=== PATIENT | male | born 1960 | race Caucasian/White ===

== ENCOUNTER 2021-10-17 08:37 | Emergency (ER) | payer MEDICAID ==
[~2021-10-17] VITALS: Ht 177.8 cm; Wt 88.6 kg
[~2021-10-17 08:37] MED LIST: AMOX-441 PO; VALS1TAB2 PO
[2021-10-17] MEDS ORDERED: CefTRIAXone 1000mg IM Kit (w/lidocaine diluent) IM ONE (09:10)
[2021-10-17] MEDS ORDERED: TETanus/Pertussis (Acell)/Diphther VAC/PF (Tdap-Adult) 0.5ml syringe IMVAC ONE (09:10)
[2021-10-17] MEDS ORDERED: CEPH-585 PO (10:08)
[2021-10-17] MEDS ORDERED: SULF1TAB49 PO ×2 (10:08)
[2021-10-17] MEDS ORDERED: HYDR-3965 PO ×2 (10:08)
[2021-10-17 10:37] VITALS: BP 140/89
== END 2021-10-17 10:31 | disposition home or self-care (01) ==
LOC: ER 08:38
DX: S61.431A Puncture wound without foreign body of right hand, initial encounter (principal); L03.011 Cellulitis of right finger; X58.XXXA Exposure to other specified factors, initial encounter; Y93.89 Activity, other specified; Y92.89 Other specified places as the place of occurrence of the external cause; Y99.8 Other external cause status
CPT/HCPCS: 90471; 90715; 96372; 99284; J0696

== ENCOUNTER 2021-10-21 15:06 | Inpatient (IN) | payer MEDICAID ==
[~2021-10-21] VITALS: Ht 177.8 cm; Wt 89.5 kg
[~2021-10-21 15:06] MED LIST changes: +CEPH-585 PO; +HYDR-3965 PO; +SULF1TAB49 PO
[2021-10-21 17:01] LABS: BASOPHILS % (AUTO) 0.6 % (0-1); EOSINOPHILS # (AUTO) 0.7 X10'3 (0-0.9); EOSINOPHILS % (AUTO) 8.4 % (0-6); HEMATOCRIT 45.1 % (42.0-52.0); HEMOGLOBIN 15.9 g/dl (14.0-17.9); LYMPHOCYTES # (AUTO) 1.6 X10'3 (1.1-4.8); LYMPHOCYTES % (AUTO) 20.4 % (21-51); MEAN CORPUSCULAR HGB CONC 35.2 g/dL (33.0-36.5); MEAN CORPUSCULAR VOLUME 96.8 FL (78-98); MEAN PLATELET VOLUME 6.6 FL (7.4-10.4); MONOCYTES # (AUTO) 0.5 X10'3 (0-0.9); MONOCYTES % (AUTO) 6.5 % (2-12); NEUTROPHILS % (AUTO) 64.1 % (42-75); PLATELET COUNT 236 X10'3 (140-440); RED BLOOD COUNT 4.66 X10'6 (4.70-6.10); WHITE BLOOD COUNT 7.8 X10'3 (4.5-11.0)
[2021-10-21] MEDS ORDERED: CefTRIAXone 2gm/NS 100ml IVPB 100 ML IV ONE (19:10)
[2021-10-21] MEDS ORDERED: HYDROmorphone inj. 0.5 MG/0.5 ML DISP.SYRIN IV PRN (20:55)
[2021-10-21] MEDS ORDERED: diphenhydrAMINE 50 mg/ml inj IV PRN (20:55)
[2021-10-21] MEDS ORDERED: ondansetron/PF 4mg/2ml inj IV PRN (20:55)
[2021-10-21] MEDS ORDERED: acetaminophen 325mg tablet PO PRN ×2 (20:55)
[2021-10-21] MEDS ORDERED: morphine 2 MG/ML inj. syringe IV PRN ×2 (20:55)
[2021-10-21] MEDS ORDERED: acetaminophen 650mg rectal suppository RC PRN (20:55)
[2021-10-21] MEDS ORDERED: magnesium hydroxide 30ml (MOM) UD suspension PO PRN (20:55)
[2021-10-21] MEDS ORDERED: bisacodyl 10mg suppository rectal RC PRN (20:55)
[2021-10-21] MEDS ORDERED: mag hydrox/Alum hydrox/simeth 30ml oral suspension PO PRN (20:55)
[2021-10-21] MEDS ORDERED: ondansetron 4mg rapidly disintigrating tab PO PRN (20:55)
[2021-10-21] MEDS ORDERED: HYDROcodone/acetaminophen 5mg/325mg tablet PO PRN (20:55)
[2021-10-21] MEDS ORDERED: diphenhydrAMINE 25mg capsule PO PRN (20:55)
[2021-10-21] MEDS: dextrose 5%-1/2 normal saline 1,000 ML IV SCH (20:55)
[2021-10-21] MEDS ORDERED: temazepam 15mg capsule PO PRN (21:00)
[2021-10-21] MEDS ORDERED: TETanus/Pertussis (Acell)/Diphther VAC/PF (Tdap-Adult) 0.5ml syringe IMVAC ONE (21:00)
[2021-10-21 21:32] LABS: APTT 29 SECONDS (22-32)
[2021-10-21 21:43] LABS: MAGNESIUM 2.1 MG/DL (1.5-2.4); PHOSPHORUS 3.1 MG/DL (2.3-4.5)
[2021-10-21 22:05] LABS: HEMOGLOBIN A1C 5.3 % (4.5-6.2)
[2021-10-22] VITALS (20 sets, daily range): BP systolic 110–157; BP diastolic 62–94
[2021-10-22] MEDS ORDERED: haloperidol lactate 5mg/ml inj IM PRN (04:50)
[2021-10-22] MEDS ORDERED: haloperidol 5mg tablet PO PRN (04:50)
--- NOTE | 2021-10-22 06:25 | NUR ---
Patient in room ORTHO 4009. I have received report from Demetrice SHARMA and had the opportunity to ask questions and assume patient care.
[2021-10-22] MEDS: dextrose 5%-1/2 normal saline 1,000 ML IV SCH ×3 (06:55→20:58)
[2021-10-22 07:01] LABS: BASOPHILS # (AUTO) 0.1 X10'3 (0-0.2); BASOPHILS % (AUTO) 1.1 % (0-1); EOSINOPHILS # (AUTO) 0.7 X10'3 (0-0.9); EOSINOPHILS % (AUTO) 10.9 % (0-6); HEMATOCRIT 41.7 % (42.0-52.0); HEMOGLOBIN 14.5 g/dl (14.0-17.9); LYMPHOCYTES # (AUTO) 1.1 X10'3 (1.1-4.8); LYMPHOCYTES % (AUTO) 17.9 % (21-51); MEAN CORPUSCULAR HEMOGLOBIN 33.9 PG (27.0-31.0); MEAN CORPUSCULAR HGB CONC 34.7 g/dL (33.0-36.5); MEAN CORPUSCULAR VOLUME 97.8 FL (78-98); MEAN PLATELET VOLUME 6.9 FL (7.4-10.4); MONOCYTES # (AUTO) 0.6 X10'3 (0-0.9); MONOCYTES % (AUTO) 8.7 % (2-12); NEUTROPHILS # (AUTO) 3.9 X10'3 (1.8-7.7); NEUTROPHILS % (AUTO) 61.4 % (42-75); PLATELET COUNT 216 X10'3 (140-440); RED BLOOD COUNT 4.27 X10'6 (4.70-6.10); WHITE BLOOD COUNT 6.4 X10'3 (4.5-11.0)
[2021-10-22 07:17] LABS: ALANINE AMINOTRANSFERASE 58 U/L (12-78); ALBUMIN 3.6 G/DL (3.4-5.0); ALBUMIN/GLOBULIN RATIO 1.2 (1.1-1.5); ALKALINE PHOSPHATASE 94 IU/L (46-116); ANION GAP 8 (8-16); ASPARTATE AMINO TRANSFERASE 53 U/L (10-37); BILIRUBIN,TOTAL 0.7 MG/DL (0.1-1.0); BLOOD UREA NITROGEN 10 MG/DL (7-18); BUN/CREATININE RATIO 11.1 (5.4-32.0); CALCIUM 8.3 MG/DL (8.5-10.1); CHLORIDE 101 MMOL/L (99-107); CHOL/HDL RATIO 2.4 (0.00-4.99); CHOLESTEROL 143 MG/DL (0-200); GLUCOSE 114 MG/DL (70-104); HDL CHOLESTEROL 60 MG/DL (35-60); LDL CHOLESTEROL 74 MG/DL (50-100); POTASSIUM 3.8 MMOL/L (3.5-5.1); SODIUM 135 MMOL/L (135-145); TOTAL CARBON DIOXIDE 25.8 MMOL/L (24-32); TOTAL PROTEIN 6.6 G/DL (6.4-8.2); TRIGLYCERIDES 54 MG/DL (20-135); eGFR 86 ML/MIN
[2021-10-22] MEDS ORDERED: HYDR-3964 PO (07:17)
[2021-10-22] MEDS ORDERED: SULF1TAB45 PO (07:17)
[2021-10-22] MEDS ORDERED: ROSU5TAB12 PO (07:17)
[2021-10-22] MEDS ORDERED: LOSA100T57 PO (07:17)
[2021-10-22] MEDS ORDERED: CEPH250T PO (07:19)
[2021-10-22] MEDS: pantoprazole 40MG/NS 100ML BAG 100 ML IV SCH (07:22)
[2021-10-22] MEDS: nicotine 21mg patch - 24 hr TD SCH (07:22)
[2021-10-22] MEDS: docusate sod 100mg capsule PO SCH ×2 (08:00→20:00)
[2021-10-22] MEDS: CefTRIAXone 2gm/NS 100ml IVPB 100 ML IV SCH (08:09)
[2021-10-22] MEDS: LORazepam 2 mg/ml vial IV PRN ×2 (09:41→19:25)
[2021-10-22] MEDS ORDERED: AMLO-708 PO (15:21)
[2021-10-22] MEDS ORDERED: morphine 4 MG/ML inj SYRINge IV PRN (15:40)
[2021-10-22] MEDS ORDERED: morphine 2 MG/ML inj. syringe IV PRN (15:40)
[2021-10-22] MEDS ORDERED: meperidine/PF 25mg/ml syringe IV PRN ×3 (15:40)
[2021-10-22] MEDS ORDERED: ringers solution, lacted 1,000 ML IV SCH (15:40)
[2021-10-22] MEDS ORDERED: proCHLORperazine 10 MG/2 ml inj IV PRN (15:40)
[2021-10-22] MEDS ORDERED: ondansetron/PF 4mg/2ml inj IV PRN (15:40)
[2021-10-22] MEDS ORDERED: sevoflurane 250ml liquid IH ONE (15:41)
[2021-10-22] MEDS ORDERED: FENTANYL CITRATE/PF 50 MCG/1 ML VIAL ONE (15:46)
[2021-10-22] MEDS ORDERED: midazolam 1 mg/ML 2ml injection ONE (15:46)
[2021-10-22] MEDS ORDERED: vancomycin 1,000mg inj ONE (16:03)
[2021-10-22] MEDS ORDERED: BUPIVAcaine 0.5% inj/PF 30 ML ONE (16:03)
[2021-10-22] MEDS ORDERED: propofol inj 20 ML IV ONE (16:14)
--- NOTE | 2021-10-22 16:42 | NUR ---
DR PERALTA REMAINS AT BEDSIDE, PT AWOKE AND LMA WAS REMOVED BY ANESTHESIA. VITAL STABLE, RESPIRATORY STATUS GOOD. 10 LTR FACE MASK PLACED ON PATIENT Addendum: 10/22/21 at 1758 by Elissa Sorensen RN Amended: Links added.
--- NOTE | 2021-10-22 17:27 | NUR ---
Patient in room ORTHO 4009. I have received report from Betina SHARMA and had the opportunity to ask questions and assume patient care.
[2021-10-22] MEDS: vancomycin/NS 1 GM ADD-VANTAGE 250 ML IV SCH (18:01)
--- NOTE | 2021-10-22 18:17 | NUR ---
Problems reprioritized. Patient report given, questions answered & plan of care reviewed with Kendra Gardner RN.
--- NOTE | 2021-10-22 18:30 | NUR ---
Patient in room ORTHO 4007. I have received report from IVANNA SHARMA and had the opportunity to ask questions and assume patient care.
[2021-10-22] MEDS ORDERED: losartan 50mg tablet PO ONE (20:00)
--- NOTE | 2021-10-22 23:30 | NUR ---
Patient report given, questions answered & plan of care reviewed with GRADY SHARMA.
--- NOTE | 2021-10-22 23:32 | NUR ---
Patient in room ORTHO 4007. I have received report from SCAR ABBOTT RN and had the opportunity to ask questions and assume patient care.
[2021-10-22] MEDS: HYDROcodone/acetaminophen 10/325mg tab PO PRN (23:58)
[2021-10-23 01:47] VITALS: BP 151/74
[2021-10-23] MEDS: dextrose 5%-1/2 normal saline 1,000 ML IV SCH (02:55)
[2021-10-23] MEDS: vancomycin/NS 1 GM ADD-VANTAGE 250 ML IV SCH (04:37)
[2021-10-23 06:00] VITALS: BP 127/72
--- NOTE | 2021-10-23 06:20 | NUR ---
Patient in room ORTHO 4007. I have received report from Blessing SHARMA and had the opportunity to ask questions and assume patient care. Addendum: 10/23/21 at 0622 by Maryan Aguilar RN Received report from Alice SHARMA
[2021-10-23 06:37] LABS: BASOPHILS # (AUTO) 0.1 X10'3 (0-0.2); BASOPHILS % (AUTO) 1.1 % (0-1); EOSINOPHILS # (AUTO) 0.6 X10'3 (0-0.9); EOSINOPHILS % (AUTO) 8.4 % (0-6); HEMATOCRIT 40.7 % (42.0-52.0); HEMOGLOBIN 14.1 g/dl (14.0-17.9); LYMPHOCYTES # (AUTO) 1.1 X10'3 (1.1-4.8); LYMPHOCYTES % (AUTO) 16.2 % (21-51); MEAN CORPUSCULAR HEMOGLOBIN 33.7 PG (27.0-31.0); MEAN CORPUSCULAR HGB CONC 34.7 g/dL (33.0-36.5); MEAN CORPUSCULAR VOLUME 97.1 FL (78-98); MEAN PLATELET VOLUME 6.9 FL (7.4-10.4); MONOCYTES # (AUTO) 0.5 X10'3 (0-0.9); MONOCYTES % (AUTO) 7.5 % (2-12); NEUTROPHILS # (AUTO) 4.4 X10'3 (1.8-7.7); NEUTROPHILS % (AUTO) 66.8 % (42-75); PLATELET COUNT 188 X10'3 (140-440); RED BLOOD COUNT 4.19 X10'6 (4.70-6.10); WHITE BLOOD COUNT 6.7 X10'3 (4.5-11.0)
[2021-10-23 07:08] LABS: ALANINE AMINOTRANSFERASE 93 U/L (12-78); ALBUMIN 3.5 G/DL (3.4-5.0); ALBUMIN/GLOBULIN RATIO 1.1 (1.1-1.5); ALKALINE PHOSPHATASE 89 IU/L (46-116); AMYLASE 74 U/L (25-115); ANION GAP 7 (8-16); BILIRUBIN,TOTAL 0.7 MG/DL (0.1-1.0); BLOOD UREA NITROGEN 9 MG/DL (7-18); CALCIUM 7.9 MG/DL (8.5-10.1); CHLORIDE 101 MMOL/L (99-107); CREATININE 0.69 MG/DL (0.60-1.10); GLUCOSE 119 MG/DL (70-104); LIPASE 210 U/L (73-393); MAGNESIUM 2.1 MG/DL (1.5-2.4); SODIUM 131 MMOL/L (135-145); TOTAL CARBON DIOXIDE 23.2 MMOL/L (24-32); TOTAL PROTEIN 6.6 G/DL (6.4-8.2); eGFR > 90 ML/MIN
[2021-10-23 07:15] LABS: ASPARTATE AMINO TRANSFERASE 121 U/L (10-37); PHOSPHORUS 2.4 MG/DL (2.3-4.5); POTASSIUM 4.1 MMOL/L (3.5-5.1)
[2021-10-23] MEDS: docusate sod 100mg capsule PO SCH (07:32)
[2021-10-23] MEDS: HYDROcodone/acetaminophen 10/325mg tab PO PRN (07:33)
[2021-10-23] MEDS: pantoprazole 40MG/NS 100ML BAG 100 ML IV SCH (07:34)
[2021-10-23] MEDS: nicotine 21mg patch - 24 hr TD SCH (07:39)
[2021-10-23] MEDS ORDERED: losartan 50mg tablet PO SCH (08:00)
[2021-10-23] MEDS ORDERED: atorvastatin 20mg tablet PO SCH (08:00)
[2021-10-23] MEDS: CefTRIAXone 2gm/NS 100ml IVPB 100 ML IV SCH (08:40)
[2021-10-23 10:18] VITALS: BP 143/86
[2021-10-23] MEDS ORDERED: HYDR-3964 PO (10:34)
[2021-10-23] MEDS ORDERED: VANCOmycin 1250MG/NS 250ml Bag 250 ML IV SCH (12:00)
[2021-10-24] MEDS ORDERED: LORazepam 1 MG tablet PO PRN (04:50)
[2021-10-24] MEDS ORDERED: LORazepam 2 mg/ml vial IV PRN (04:50)
[2021-10-24] MEDS ORDERED: pantoprazole 40mg Tablet.DR PO SCH (07:30)
[2021-10-24] MEDS ORDERED: VANCOMYCIN LEVEL IV ONE (11:30)
[2021-10-26] MEDS ORDERED: LORazepam 2 mg/ml vial IV PRN (04:50)
[2021-10-26] MEDS ORDERED: LORazepam 1 MG tablet PO PRN (04:50)
== END 2021-10-23 11:55 | disposition home or self-care (01) | DRG 316 ==
LOC: ER 15:07 → ED HOLD 20:58 → ORTHO 4S 23:50
PROVIDERS: ADMIT Family Medicine; ATTEND Family Medicine
PROC: 0LB70ZZ Excision of Right Hand Tendon, Open Approach (ICD-10-PCS; principal; 2021-10-22 15:41)
DX: M65.841 Other synovitis and tenosynovitis, right hand (principal); E66.9 Obesity, unspecified; L03.113 Cellulitis of right upper limb; F10.10 Alcohol abuse, uncomplicated; Z20.822 Contact with and (suspected) exposure to COVID-19; E78.5 Hyperlipidemia, unspecified; I10 Essential (primary) hypertension; Z72.0 Tobacco use; Z68.28 Body mass index [BMI] 28.0-28.9, adult; Z79.899 Other long term (current) drug therapy
CPT/HCPCS: 36415; 73130; 80053; 80061; 82150; 82948; 83036; 83605; 83690; 83735; 83880; 84100; 85025; 85610; 85651; 85730; 86140; 87040; 87070; 87075; 87077; 87081; 87186; 87635; 90715; 99285; A4215; A4618; A6222; A6449; A7000; C9113; G0378; J0696; J1170; J2060; J2250; J2704; J3010; J3370; J7042; S0020

== ENCOUNTER 2024-03-04 21:40 | Inpatient (IN) | payer MEDICAID ==
[~2024-03-04] VITALS: Ht 172.7 cm; Wt 71.8 kg
[~2024-03-04 21:40] MED LIST changes: +AMLO-708 PO; -AMOX-441 PO; -CEPH-585 PO; +CEPH250T PO; +HYDR-3964 PO; -HYDR-3965 PO; +LOSA100T58 PO; +ROSU5TAB43 PO; +SULF1TAB45 PO; -SULF1TAB49 PO; -VALS1TAB2 PO
[2024-03-04 22:02] LABS: BASOPHILS # (AUTO) 0.1 X10'3 (0-0.2); BASOPHILS % (AUTO) 1.3 % (0-1); EOSINOPHILS # (AUTO) 0.6 X10'3 (0-0.9); EOSINOPHILS % (AUTO) 10.3 % (0-6); HEMATOCRIT 38.4 % (42.0-52.0); HEMOGLOBIN 13.5 g/dl (14.0-17.9); LYMPHOCYTES # (AUTO) 1.5 X10'3 (1.1-4.8); LYMPHOCYTES % (AUTO) 28.3 % (21-51); MEAN CORPUSCULAR HGB CONC 35.3 g/dL (33.0-36.5); MEAN CORPUSCULAR VOLUME 99.3 FL (78-98); MEAN PLATELET VOLUME 6.6 FL (7.4-10.4); MONOCYTES # (AUTO) 0.3 X10'3 (0-0.9); NEUTROPHILS # (AUTO) 2.9 X10'3 (1.8-7.7); NEUTROPHILS % (AUTO) 54.1 % (42-75); PLATELET COUNT 163 X10'3 (140-440); RED BLOOD COUNT 3.87 X10'6 (4.70-6.10); RED CELL DISTRIBUTION WIDTH 13.5 % (11.5-14.5); WHITE BLOOD COUNT 5.4 X10'3 (4.5-11.0)
[2024-03-04 22:20] LABS: ALANINE AMINOTRANSFERASE 130 U/L (12-78); ALBUMIN/GLOBULIN RATIO 1.2 (1.1-1.5); ALKALINE PHOSPHATASE 114 IU/L (46-116); ANION GAP 10 (8-16); ASPARTATE AMINO TRANSFERASE 103 U/L (10-37); BILIRUBIN,TOTAL 0.8 MG/DL (0.1-1.0); BLOOD UREA NITROGEN 3 MG/DL (7-18); BUN/CREATININE RATIO 3.9 (10.0-20.0); CALCIUM 9.2 MG/DL (8.5-10.1); CHLORIDE 87 MMOL/L (99-107); CREATININE 0.76 MG/DL (0.60-1.10); GLUCOSE 101 MG/DL (70-104); MAGNESIUM 1.5 MG/DL (1.5-2.4); PRO BRAIN NATRIURETIC PEPTIDE 220 PG/ML (0-125); SODIUM 123 MMOL/L (135-145); TOTAL CARBON DIOXIDE 26.4 MMOL/L (24-32); TOTAL PROTEIN 7.4 G/DL (6.4-8.2); eCRCL 103 ML/MIN; eGFR > 90 ML/MIN
[2024-03-04 22:26] LABS: POTASSIUM 2.8 MMOL/L (3.5-5.1)
[2024-03-04] MEDS: potassium Cl 20 mEq SR tablet PO ONE (22:42)
[2024-03-04] MEDS: magnesium oxide 400mg tablet PO ONE (22:43)
[2024-03-04] MEDS: magnesium sulf-water 2g/50mL 50 ML IV ONE (22:54)
[2024-03-04] MEDS: potassium CL 10mEq/100ml bag 100 ML IV ONE (22:57)
[2024-03-04 23:00] LABS: ETHANOL 134 MG/DL (<10)
[2024-03-04 23:03] LABS: URINE AMPHETAMINE SCREEN NEGATIVE (Neg); URINE BARBITUATE SCREEN NEGATIVE (Neg); URINE BENZODIAZEPINES SCREEN NEGATIVE (Neg); URINE CANNABINOID SCREEN NEGATIVE (Neg); URINE COCAINE SCREEN NEGATIVE (Neg); URINE METHADONE SCREEN NEGATIVE (Neg); URINE OPIATE SCREEN NEGATIVE (Neg); URINE PHENCYCLIDINE SCREEN NEGATIVE (Neg)
[2024-03-04] MEDS: aspirin 325mg tablet PO ONE (23:06)
[2024-03-04] MEDS ORDERED: heparin 10,000 units/1 ML INJ IV PRN (23:25)
[2024-03-04] MEDS: nitroGLYCERIN 0.2mg/hour patch TD ONE (23:32)
[2024-03-04 23:35] LABS: APTT 30 SECONDS (22-32)
[2024-03-04] MEDS: heparin 10,000 units/1 ML INJ IV ONE (23:36)
[2024-03-04] MEDS: heparin 25,000 UNIT/250ml bag 250 ML IV PRN (23:41)
[2024-03-04] MEDS ORDERED: HYDR25TA5 PO (23:58)
[2024-03-05] VITALS (12 sets, daily range): BP systolic 102–135; BP diastolic 63–83; PULSE 83–101; RESP 12–21; TEMP 97.4; O2SAT 93–98
[2024-03-05] MEDS: normal saline 1000ML IV soln IVB ONE (00:10)
[2024-03-05] MEDS: normal saline 1000ml 1,000 ML IV ONE (00:33)
[2024-03-05] MEDS ORDERED: ondansetron/PF 4mg/2ml inj IV PRN (00:35)
[2024-03-05] MEDS ORDERED: potassium Cl 20 mEq SR tablet PO PRN ×2 (00:35)
[2024-03-05] MEDS ORDERED: morphine 2 MG/ML inj. syringe IV PRN (00:35)
[2024-03-05] MEDS ORDERED: mag hydrox/Alum hydrox/simeth 30ml oral suspension PO PRN (00:35)
[2024-03-05] MEDS ORDERED: magnesium Cl slow-release 64mg tablet PO PRN (00:35)
[2024-03-05] MEDS ORDERED: acetaminophen 325mg tablet PO PRN ×2 (00:35)
[2024-03-05] MEDS ORDERED: potassium Cl 40MEQ/1/2NS 520ml 520 ML IV PRN (00:35)
[2024-03-05] MEDS ORDERED: HYDROcodone/acetaminophen 5mg/325mg tablet PO PRN (00:35)
[2024-03-05] MEDS ORDERED: magnesium sulf-water 4G/100mL 100 ML IV PRN (00:35)
[2024-03-05] MEDS ORDERED: magnesium sulf-water 2g/50mL 50 ML IV PRN (00:35)
[2024-03-05] MEDS ORDERED: nitroGLYCERIN 0.4mg SUBLingual tab SL PRN ×3 (00:45→11:00)
[2024-03-05] MEDS ORDERED: LORazepam 2 mg/ml vial IV PRN (00:45)
[2024-03-05] MEDS ORDERED: haloperidol 5mg tablet PO PRN (00:45)
[2024-03-05 01:05] LABS: PROTHROMBIN TIME 11.1 SECONDS (9.0-12.0)
[2024-03-05 01:16] LABS: HEMOGLOBIN A1C 5.2 % (4.5-6.2)
[2024-03-05] MEDS: nicotine 21mg patch - 24 hr TD ONE (01:19)
[2024-03-05 01:23] LABS: FREE T4 (FREE THYROXINE) 1.04 NG/DL (0.73-1.40); THYROID STIMULATING HORMONE 1.35 ulU/ml (0.34-4.50)
[2024-03-05] MEDS: MESSAGE TO NURSING IV ONE ×2 (01:28→09:52)
[2024-03-05 07:39] LABS: MAGNESIUM 1.7 MG/DL (1.5-2.4); POTASSIUM 3.2 MMOL/L (3.5-5.1)
[2024-03-05] MEDS ORDERED: midazolam 1 mg/ML 2ml injection ONE (07:54)
[2024-03-05] MEDS ORDERED: iohexol 350MG/ML 100ml bottle IV ONE (07:54)
[2024-03-05] MEDS ORDERED: heparin 1,000unit/ml 10ml vial 10 ML ONE (07:54)
[2024-03-05] MEDS ORDERED: fentaNYL/PF 50MCG/1 ML 2ML syringe ONE (07:54)
[2024-03-05] MEDS ORDERED: iohexol 350 MG/ML 50ML vial IV ONE (07:54)
[2024-03-05] MEDS ORDERED: LIDOcaine 1% (10mg/ml) 2ml vial ONE (07:54)
[2024-03-05] MEDS ORDERED: nitroGLYCERIN 500mcg/5mL D5W 5 ML IV ONE (07:55)
[2024-03-05] MEDS ORDERED: verapamil 2.5 mg/ml inj IV ONE (07:55)
[2024-03-05] MEDS ORDERED: metoprolol tartrate 50mg tablet PO SCH (08:00)
[2024-03-05] MEDS ORDERED: atorvastatin 10mg tablet PO SCH (08:00)
[2024-03-05] MEDS ORDERED: nitroGLYCERIN-Tridil 50MG/D5W 250 ML IV ONE (08:36)
[2024-03-05] MEDS: K and/or MAG REPLACEMENT MC SCH (09:50)
[2024-03-05] MEDS: metoprolol tartrate 25mg tablet PO SCH (09:51)
[2024-03-05] MEDS: ROSUVASTATIN CALCIUM 5 MG TABLET PO SCH (09:51)
[2024-03-05] MEDS: thiamine 100mg/ml 2ml inj. IV SCH (10:12)
[2024-03-05] MEDS: folic acid 1mg/0.2ml inj IV SCH (10:12)
[2024-03-05] MEDS: nicotine 21mg patch - 24 hr TD SCH (10:13)
[2024-03-05] MEDS ORDERED: OXAZEpam 15mg capsule PO PRN (11:00)
[2024-03-05] MEDS ORDERED: cyclobenzaprine 10mg tablet PO PRN (11:00)
[2024-03-05] MEDS ORDERED: HYDROcodone/acetaminophen 10/325mg tab PO PRN ×2 (11:05)
[2024-03-05] MEDS: nitroGLYCERIN-Tridil 50MG/D5W 250 ML IV SCH (11:09)
[2024-03-05] MEDS: aspirin 81mg tab.chew PO SCH (11:14)
[2024-03-05] MEDS: POTASSIUM CHLORIDE 20 MEQ/15 ML oral solution PO SCH (11:15)
[2024-03-06] MEDS ORDERED: normal saline 1000ml 1,000 ML IV SCH (05:30)
[2024-03-07] MEDS ORDERED: LORazepam 2 mg/ml vial IV PRN (00:45)
[2024-03-07] MEDS ORDERED: LORazepam 1 MG tablet PO PRN (00:45)
[2024-03-09] MEDS ORDERED: LORazepam 2 mg/ml vial IV PRN (00:45)
[2024-03-09] MEDS ORDERED: LORazepam 1 MG tablet PO PRN (00:45)
== END 2024-03-05 14:26 | disposition critical access hospital (66) | DRG 190 ==
LOC: ER 21:41 → ED HOLD 03-05 00:39 → PCU 3S 03-05 02:32 → CICU 2S 03-05 09:18
PROVIDERS: ADMIT Internal Medicine Pulmonary Disease; ATTEND Internal Medicine
PROC: 4A023N7 Measurement of Cardiac Sampling and Pressure, Left Heart, Percutaneous Approach (ICD-10-PCS; principal; 2024-03-05)
PROC: B2111ZZ Fluoroscopy of Multiple Coronary Arteries using Low Osmolar Contrast (ICD-10-PCS; 2024-03-05)
PROC: B2151ZZ Fluoroscopy of Left Heart using Low Osmolar Contrast (ICD-10-PCS; 2024-03-05)
DX: I21.4 Non-ST elevation (NSTEMI) myocardial infarction (principal); E87.1 Hypo-osmolality and hyponatremia; I73.9 Peripheral vascular disease, unspecified; I25.110 Atherosclerotic heart disease of native coronary artery with unstable angina pectoris; E83.42 Hypomagnesemia; E87.6 Hypokalemia; F17.210 Nicotine dependence, cigarettes, uncomplicated; D53.9 Nutritional anemia, unspecified; E78.5 Hyperlipidemia, unspecified; I10 Essential (primary) hypertension; G62.9 Polyneuropathy, unspecified; F15.90 Other stimulant use, unspecified, uncomplicated
CPT/HCPCS: 36415; 71045; 80053; 80305; 80320; 82948; 83036; 83735; 83880; 84132; 84439; 84443; 84484; 85025; 85610; 85730; 87081; 93005; 93306; 93458; 96365; 96367; 96375; 99152; 99153; 99285; A6449; C1894; G0378; J1644; J2250; J3010; J3411; J3480; J3490; J7030; J7040; Q9967

== ENCOUNTER 2024-05-12 18:06 | Outpatient (CLI) | payer MEDICAID ==
[~2024-05-12 18:06] MED LIST changes: -CEPH250T PO; -HYDR-3964 PO; +HYDR25TA5 PO; -SULF1TAB45 PO
[2024-05-12 22:02] LABS: BASOPHILS # (AUTO) 0.1 X10'3 (0-0.2); BASOPHILS % (AUTO) 1.2 % (0-1); EOSINOPHILS # (AUTO) 1.3 X10'3 (0-0.9); EOSINOPHILS % (AUTO) 14.3 % (0-6); HEMOGLOBIN 11.9 g/dl (14.0-17.9); LYMPHOCYTES # (AUTO) 2.4 X10'3 (1.1-4.8); LYMPHOCYTES % (AUTO) 26.5 % (21-51); MEAN CORPUSCULAR HEMOGLOBIN 31.4 PG (27.0-31.0); MEAN CORPUSCULAR VOLUME 95.1 FL (78-98); MONOCYTES # (AUTO) 0.6 X10'3 (0-0.9); MONOCYTES % (AUTO) 6.5 % (2-12); NEUTROPHILS # (AUTO) 4.7 X10'3 (1.8-7.7); NEUTROPHILS % (AUTO) 51.5 % (42-75); PLATELET COUNT 247 X10'3 (140-440); RED BLOOD COUNT 3.78 X10'6 (4.70-6.10); RED CELL DISTRIBUTION WIDTH 15.5 % (11.5-14.5); WHITE BLOOD COUNT 9.1 X10'3 (4.5-11.0)
[2024-05-12 22:19] LABS: ALANINE AMINOTRANSFERASE 33 U/L (12-78); ALBUMIN 2.9 G/DL (3.4-5.0); ALBUMIN/GLOBULIN RATIO 0.8 (1.1-1.5); ALKALINE PHOSPHATASE 189 IU/L (46-116); ANION GAP 11 (8-16); ASPARTATE AMINO TRANSFERASE 37 U/L (10-37); BILIRUBIN,TOTAL 0.3 MG/DL (0.1-1.0); BLOOD UREA NITROGEN 5 MG/DL (7-18); BUN/CREATININE RATIO 7.8 (10.0-20.0); C-REACTIVE PROTEIN 0.13 MG/DL (0.0-0.5); CALCIUM 9.1 MG/DL (8.5-10.1); CHLORIDE 99 MMOL/L (99-107); CREATININE 0.64 MG/DL (0.60-1.10); GLUCOSE 71 MG/DL (70-104); POTASSIUM 3.9 MMOL/L (3.5-5.1); SODIUM 133 MMOL/L (135-145); TOTAL CARBON DIOXIDE 23.5 MMOL/L (24-32); TOTAL PROTEIN 6.6 G/DL (6.4-8.2); eGFR > 90 ML/MIN
== END 2024-05-12 23:59 | disposition home or self-care (01) ==
LOC: LAB SPEC 18:06
PROVIDERS: ATTEND Family Medicine
DX: S22.001A Stable burst fracture of unspecified thoracic vertebra, initial encounter for closed fracture (principal); L08.9 Local infection of the skin and subcutaneous tissue, unspecified; X58.XXXA Exposure to other specified factors, initial encounter; Y93.9 Activity, unspecified; Y92.89 Other specified places as the place of occurrence of the external cause; Y99.8 Other external cause status
CPT/HCPCS: 36415; 80053; 85025; 86140

== ENCOUNTER 2024-11-18 12:57 | Emergency (ER) | payer MEDICAID ==
[~2024-11-18] VITALS: Ht 177.8 cm; Wt 79.5 kg
[~2024-11-18 12:57] MED LIST changes: -ROSU5TAB43 PO; +ROSU5TAB51 PO
[2024-11-18 14:14] LABS: BASOPHILS % (AUTO) 0.3 % (0-1); EOSINOPHILS # (AUTO) 0.2 X10'3 (0-0.9); EOSINOPHILS % (AUTO) 1.7 % (0-6); HEMATOCRIT 41.4 % (42.0-52.0); HEMOGLOBIN 14.5 g/dl (14.0-17.9); LYMPHOCYTES # (AUTO) 0.8 X10'3 (1.1-4.8); LYMPHOCYTES % (AUTO) 8.6 % (21-51); MEAN CORPUSCULAR HEMOGLOBIN 33.2 PG (27.0-31.0); MEAN CORPUSCULAR HGB CONC 34.9 g/dL (33.0-36.5); MEAN CORPUSCULAR VOLUME 95.1 FL (78-98); MEAN PLATELET VOLUME 7.7 FL (7.4-10.4); MONOCYTES # (AUTO) 0.5 X10'3 (0-0.9); MONOCYTES % (AUTO) 5.5 % (2-12); NEUTROPHILS # (AUTO) 7.8 X10'3 (1.8-7.7); NEUTROPHILS % (AUTO) 83.9 % (42-75); PLATELET COUNT 213 X10'3 (140-440); RED BLOOD COUNT 4.36 X10'6 (4.70-6.10); WHITE BLOOD COUNT 9.3 X10'3 (4.5-11.0)
[2024-11-18 14:54] LABS: ALANINE AMINOTRANSFERASE 123 U/L (12-78); ALBUMIN 3.5 G/DL (3.4-5.0); ALBUMIN/GLOBULIN RATIO 1.2 (1.1-1.5); ALKALINE PHOSPHATASE 153 IU/L (46-116); ANION GAP 11 (8-16); ASPARTATE AMINO TRANSFERASE 115 U/L (10-37); BILIRUBIN,TOTAL 1.1 MG/DL (0.1-1.0); BLOOD UREA NITROGEN 16 MG/DL (7-18); BUN/CREATININE RATIO 20.3 (10.0-20.0); CHLORIDE 100 MMOL/L (99-107); CREATININE 0.79 MG/DL (0.60-1.10); GLUCOSE 133 MG/DL (70-104); SODIUM 138 MMOL/L (135-145); TOTAL CARBON DIOXIDE 27.3 MMOL/L (24-32); TOTAL PROTEIN 6.5 G/DL (6.4-8.2); eCRCL 98 ML/MIN; eGFR > 90 ML/MIN
[2024-11-18 15:15] LABS: BILIRUBIN,URINE NEGATIVE (Neg); CLARITY,URINE CLEAR (Clear); COLOR,URINE YELLOW (Yellow); GLUCOSE, URINE NEGATIVE (Neg); KETONES,URINE 15 mg/dl (Neg); LEUKOCYTE ESTERASE ,URINE NEGATIVE (Neg); NITRITES, URINE NEGATIVE (Neg); OCCULT BLOOD,URINE NEGATIVE (Neg); PROTEIN,URINE NEGATIVE (Neg)
[2024-11-18 15:17] LABS: UA COLLECTION TYPE VOIDED
[2024-11-18] MEDS: chlordiazePOXIDE 25mg capsule PO STA (15:57)
--- NOTE | 2024-11-18 15:59 | Physician Documentation ---
History of Present Illness ~ Chief Complaint: Nose bleed Stated Complaint: VOMITING BLOOD Time Seen by MD: 15:48 Primary Medical Doctor: [facility] Patient is seen today with complaints of a nosebleed as well as history of alcoholism. Patient states he has not had a drink now since yesterday in his started feel little shaky. Patient denies any nausea, vomiting, diarrhea. Patient presented today originally because of the nosebleed that he felt would not stopped. Patient was brought in by ambulance. Patient states the bleeding has now stopped and he is feeling much better and would like to go home. Patient has no other concern or complaint at this time. Patient denies any chest pain or shortness of breath or abdominal pain or nausea, vomiting, diarrhea. Upon re-evaluation, patient states that the bleeding of his nose has started again any feels blood running down the back of his throat. Medication Reconciliation Allergies: Coded Allergies: No Known Allergies (Unverified , 11/18/24) Scheduled Amlodipine Besylate (Amlodipine Besylate), 1 TAB PO DAILY, (Reported) Hydrochlorothiazide (Hydrochlorothiazide), 1 TAB PO DAILY, (Reported) Losartan Potassium (Losartan Potassium), 1 TAB PO DAILY, (Reported) Rosuvastatin Calcium (Rosuvastatin Calcium), 1 TAB PO DAILY, (Reported) Scheduled PRN Chlordiazepoxide Hcl (Librium), 2 CAP PO Q4H PRN for anxiety Past Medical History Past Medical History: Peripheral Neuropathy, Hypertension Past Surgical History: noncontributory Patient History: Patient reports no known family medical history. Alcohol Use: Abuse Drug Use: methamphetamine, cocaine Lives In: Home Review of Systems Constitutional: Denies: chills, fever, weakness Eyes: Denies: pain, blurred vision ENT: Denies: ear pain, nose pain, throat pain, mouth pain Respiratory: Denies: cough, shortness of breath Cardiovascular: Denies: chest pain, palpitations Gastrointestinal: Denies: abdominal pain, nausea, vomiting Genitourinary: Denies: burning, dysuria Male Genitalia: Denies: penile discharge, testicular pain Neurological: Denies: headache, dizziness Musculoskeletal: Denies: pain, swelling Integumentary: Denies: rash, lesions Allergic/Immunologic: Denies: hives, itching Hematologic/Lymphatic: Denies: no symptoms reported Psychiatric: Denies: depression, anxiety Physical Exam Vital Signs: Temperature: 97.6, Source: Temporal, Heart Rate: 112, Respiratory Rate: 16, BP: 121/75, Pulse Oximetry: 97, Weight: 79.550 Oxygen Flow Rate: 0 Physical Exam General: Awake and Alert, no acute distress. Patient does have some mild shaking of his hands currently. HEENT: I do not currently appreciate any active nosebleed. There was no blood in the oropharynx, there is no nasal discharge or blood discharge from the nares. Conjunctiva pink, Sclera clear, Mucus Membranes moist. Neck: Supple without masses and tenderness. Resp: Unlabored. Lungs clear to auscultation bilaterally. Heart: Regular Rate and rhythm, normal S1 and S2 without murmur, rub or gallop. Abdomen: Soft and non tender no organomegaly Extremities: No cyanosis,clubbing or edema. Skin: Warm and Dry. Progress Results/Orders Results/Orders Completed Orders - CRISTO HO PAC Chlordiazepoxide Capsule (Librium Capsul (11/18/24 15:50) Phenobarbital Inj (Phenobarbital Inj.) (11/18/24 16:36) Oxymetazoline Nasal [place] (Afrin Nasal S (11/18/24 19:11) Medications Received in ER Medications (Trade) Dose Ordered Sig/Yesica Route PRN Reason Start Time Stop Time Status Last Admin Dose Admin (Librium capsule) 50 mg ONCE STAT PO 11/18/24 15:50 11/18/24 15:55 DC 11/18/24 15:57 50 MG (phenoBARBITAL inj.) 130 mg ONCE STAT IV 11/18/24 16:36 11/18/24 16:37 DC 11/18/24 17:19 130 MG (Afrin nasal spray) 2 spr ONCE STAT NS 11/18/24 19:11 11/18/24 19:12 DC 11/18/24 19:17 2 SPR Vital Signs 11/18/24 11/18/24 11/18/24 11/18/24 13:23 16:00 17:28 18:27 Temp 97.6 Pulse 112 122 Resp 16 16 16 B/P (MAP) 121/75 129/84 (99) Pulse Ox 97 94 O2 Flow Rate 0 0 11/18/24 19:00 Pulse 118 Resp 18 B/P (MAP) 116/74 (88) Pulse Ox 99 O2 Flow Rate 0 Laboratory Tests Test 11/18/24 13:55 11/18/24 14:27 11/18/24 15:01 White Blood Count 9.3 Red Blood Count 4.36 L Hemoglobin 14.5 Hematocrit 41.4 L Mean Corpuscular Volume 95.1 Mean Corpuscular Hemoglobin 33.2 H Mean Corpuscular Hemoglobin Concent 34.9 Red Cell Distribution Width 13.0 Platelet Count 213 Mean Platelet Volume 7.7 Neutrophils (%) (Auto) 83.9 H Lymphocytes (%) (Auto) 8.6 L Monocytes (%) (Auto) 5.5 Eosinophils (%) (Auto) 1.7 Basophils (%) (Auto) 0.3 Neutrophils # (Auto) 7.8 H Lymphocytes # (Auto) 0.8 L Monocytes # (Auto) 0.5 Eosinophils # (Auto) 0.2 Basophils # (Auto) 0.0 CBC Comment Chemistry Comments Sodium Level 138 Potassium Level 4.0 Chloride Level 100 Carbon Dioxide Level 27.3 Anion Gap 11 Blood Urea Nitrogen 16 Creatinine 0.79 Estimated GFR/1.73 m2 > 90 BUN/Creatinine Ratio 20.3 H Glucose Level 133 H Calcium Level 9.0 Total Bilirubin 1.1 H Aspartate Amino Transf (AST/SGOT) 115 H Alanine Aminotransferase (ALT/SGPT) 123 H Alkaline Phosphatase 153 H Total Protein 6.5 Albumin 3.5 Globulin 3.0 Albumin/Globulin Ratio 1.2 Urine Specimen Description Voided Urine Color Yellow Urine Clarity Clear Urine pH 7.0 Urine Specific [place] 1.010 Urine Protein Negative Urine Glucose (UA) Negative Urine Ketones 15 H Urine Occult Blood Negative Urine Nitrite Negative Urine Bilirubin Negative Urine Urobilinogen 1.0 Urine Leukocyte Esterase Negative Urine Culture Indicated Not ind Volume Urine Centrifuged 10 ml Urine Comment Medical Decision Making Findings Patient is seen today with complaints of a nosebleed as well as history of alcoholism. Patient states he has not had a drink now since yesterday in his started feel little shaky. Patient denies any nausea, vomiting, diarrhea. Patient presented today originally because of the nosebleed that he felt would not stopped. Patient was brought in by ambulance. Patient states the bleeding has now stopped and he is feeling much better and would like to go home. Patient has no other concern or complaint at this time. Patient denies any chest pain or shortness of breath or abdominal pain or nausea, vomiting, diarrhea. Patient's vitals stable upon discharge. Patient's blood pressure stable at 127 beats per minute systolic initially. Patient slightly tachycardic initially. Patient states he last had a drink of alcohol at 1:00 a.m. this morning about 14 hours ago. Patient was given dose of Librium 50 mg in the ED tonight. Prescription of Librium taper sent to patient's pharmacy. Patient will follow up with primary care for further eval and treatment of alcoholism. Patient will return to ED with any worsening, concerning or changing symptoms. Patient's vitals stable upon discharge. Patient's blood pressure stable at 127 systolic initially. Patient slightly tachycardic initially. Patient was given a dose of phenobarbital 130 mg IV and patient is withdrawal symptoms responded very well and patient is feeling much better regarding his alcohol withdrawal symptoms. Patient was treated with Afrin nasal spray which did help stop the bleeding. Patient will be sent home with nasal clamp. Patient will return to ED with any worsening, concerning or changing symptoms. Shared decision-making utilized today with the patient. Departure Disposition: HOME / SELF CARE / HOMELESS Impression: Primary Impression: Epistaxis Additional Impression: Alcohol withdrawal Qualified Codes: F10.930 - Alcohol use, unspecified with withdrawal, uncomplicated Condition: Improved Discharge Instructions: Nosebleed, Adult Additional Instructions: Patient was given dose of Librium 50 mg in the ED tonight. Prescription of Librium taper sent to patient's pharmacy. Patient will follow up with primary care for further eval and treatment of alcoholism. Patient will return to ED with any worsening, concerning or changing symptoms. Patient's vitals stable upon discharge. Patient's blood pressure stable at 127 systolic initially. Patient slightly tachycardic initially. Patient was given a dose of phenobarbital 130 mg IV and patient is withdrawal symptoms responded very well and patient is feeling much better regarding his alcohol withdrawal symptoms. Patient was treated with Afrin nasal spray which did help stop the bleeding. Patient will be sent home with nasal clamp. Patient will return to ED with any worsening, concerning or changing symptoms. Shared decision-making utilized today with the patient. Referrals: NO PRIMARY CARE PROVIDER (PCP) Prescriptions Chlordiazepoxide Hcl (Librium) 25 Mg Capsule 2 CAP PO Q4H PRN for anxiety for 1 Day, #24 CAP 0 Refills Prov: CRISTO HO 11/18/24 Signature Scribe Signature: No scribe Attestation: No scribe CRISTO HO PAC November 18, 2024 15:59
[2024-11-18] MEDS ORDERED: CHLO25CA10 PO (16:12)
[2024-11-18] MEDS: phenoBARBITAL sod 130mg/ml inj. IV STA (17:19)
[2024-11-18] MEDS: oxymetazoline 15 ML nasal spray NS STA (19:17)
[2024-11-18 19:53] VITALS: BP 138/80; PULSE 102; RESP 18; TEMP 97.8; O2SAT 99
== END 2024-11-18 19:59 | disposition home or self-care (01) ==
LOC: ER 12:57
DX: R04.0 Epistaxis (principal); F10.139 Alcohol abuse with withdrawal, unspecified; I10 Essential (primary) hypertension; F15.90 Other stimulant use, unspecified, uncomplicated; F14.90 Cocaine use, unspecified, uncomplicated; G62.9 Polyneuropathy, unspecified; Y90.9 Presence of alcohol in blood, level not specified; Z79.899 Other long term (current) drug therapy
CPT/HCPCS: 36415; 80053; 81003; 85025; 96374; 99284; J2560

== ENCOUNTER 2025-01-25 08:38 | Inpatient (IN) | payer MEDICAID ==
[~2025-01-25] VITALS: Ht 177.8 cm; Wt 75.0 kg
[~2025-01-25 08:38] MED LIST changes: +CHLO25CA10 PO
[2025-01-25] MEDS: diazepam inj 5 MG/ML inj. IV ONE (08:56)
--- NOTE | 2025-01-25 08:59 | Physician Documentation ---
History of Present Illness ~ Chief Complaint: Bloody Emesis Stated Complaint: N/V Time Seen by MD: 08:50 Primary Medical Doctor: [facility] This very pleasant 64-year-old male presents today for concerns over alcohol withdrawal. He states he normally drinks 25 beers a day but has cut back to two history the last two days. Have had addition he is complaining of hematemesis and time early this morning at 2:00 a.m.. He reports the vomit looking like coffee-ground. Denies any nausea currently Also complains of midepigastric pain.. 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 Denies any history of heart failure or arrhythmias. He is currently tachycardic with moderate tremors in his upper extremities. Alert appropriate and pleasant Day of Onset: Jan 25, 2025 Medication Reconciliation Allergies: Coded Allergies: No Known Allergies (Unverified , 11/18/24) Scheduled Amlodipine Besylate (Amlodipine Besylate), 1 TAB PO DAILY, (Reported) Hydrochlorothiazide (Hydrochlorothiazide), 1 TAB PO DAILY, (Reported) Losartan Potassium (Losartan Potassium), 1 TAB PO DAILY, (Reported) Rosuvastatin Calcium (Rosuvastatin Calcium), 1 TAB PO DAILY, (Reported) Scheduled PRN Chlordiazepoxide Hcl (Librium), 2 CAP PO Q4H PRN for anxiety Past Medical History Past Medical History: Peripheral Neuropathy, Hypertension Past Surgical History: noncontributory Patient History: Patient reports no known family medical history. Alcohol Use: Abuse Drug Use: methamphetamine, cocaine Lives In: Home Review of Systems All Other Systems at this time: Reviewed and Negative ROS As stated above in the HPI, otherwise all systems are reviewed and negative. Physical Exam Vital Signs: Temperature: 97.9, Source: Oral, Heart Rate: 112, Respiratory Rat e: 15, BP: 121/76, Pulse Oximetry: 97, Weight: 72.800 Physical Exam General: Alert, no apparent distress ,tremulous Respiratory:diminished Chest: No accessory muscle use. Cardiovascular: tachycardic and rhythm, no murmurs. Gastrointestinal: Soft, nontender, nondistended. Bowels sounds present. Neurologic: Oriented x4. Psychiatric: Normal mood ,appears anxious Skin: Normal color, warm and dry. No edema, no ecchymosis. Progress Progress Note ED nurse reports patient is having visual hallucinations @ 0907 Results/Orders Results/Orders Orders - FELIPE ODEN GUIDE WINDER Urinalysis, Cult If Indicated (01/25/25 08:59) Page Hospitalist (01/25/25 11:03) Completed Orders - FELIPE ODEN GUIDE WINDER Diazepam Inj (Valium Inj) (01/25/25 08:55) BMP (01/25/25 08:59) Lipase (01/25/25 08:59) CMP (01/25/25 08:59) MG (01/25/25 08:59) PBNP (01/25/25 08:59) Troponin (Single) (01/25/25 08:59) Phenobarbital Inj (Phenobarbital Inj.) (01/25/25 09:05) Folic Acid Inj. (Folic Acid Inj.) (01/25/25 09:10) Magnesium Sulf-Water 2g/50ml (Magnesium (01/25/25 09:10) Ammonia (01/25/25 09:08) Phenobarbital Inj (Phenobarbital Inj.) (01/25/25 09:17) Phenobarbital Inj (Phenobarbital Inj.) (01/25/25 09:35) Cbc/Diff (01/25/25 10:09) Pantoprazole 40mg Iv (Protonix 40mg Iv) (01/25/25 10:55) Pantoprazole 40mg Iv (Protonix 40mg Iv) (01/25/25 10:55) Thiamine Inj. (Thiamine Inj.) (01/25/25 11:05) Medications Received in ER Medications (Trade) Dose Ordered Sig/Yesica Route PRN Reason Start Time Stop Time Status Last Admin Dose Admin (Valium inj) 10 mg ONCE ONCE IV 01/25/25 08:55 01/25/25 08:56 DC 01/25/25 08:56 10 MG (folic acid inj.) 1 mg ONCE ONCE IV 01/25/25 09:10 01/25/25 09:11 DC 01/25/25 09:37 1 MG Magnesium Sulfate 50 ml @ 25 mls/hr ONCE ONCE IV 01/25/25 09:10 01/25/25 11:09 DC 01/25/25 09:39 25 MLS/HR (phenoBARBITAL inj.) 260 mg ONCE ONCE IV 01/25/25 09:35 01/25/25 09:36 DC 01/25/25 09:56 260 MG (Protonix 40mg IV) 40 mg NOW ONCE IV 01/25/25 10:55 01/25/25 11:01 DC 01/25/25 11:25 40 MG (thiamine inj.) 100 mg ONCE ONCE IV 01/25/25 11:05 01/25/25 11:06 DC 01/25/25 11:25 100 MG Vital Signs 01/25/25 01/25/25 01/25/25 01/25/25 08:40 08:50 10:25 11:28 Temp 97.9 Pulse 113 112 110 Resp 15 15 19 15 B/P (MAP) 105/74 121/76 (91) 96/67 (77) Pulse Ox 98 97 97 Laboratory Tests Test 01/25/25 09:33 01/25/25 10:26 01/25/25 11:11 CBC Comment Sodium Level 131 L Potassium Level 3.1 L Chloride Level 93 L Carbon Dioxide Level 32.7 H Anion Gap 5 L Blood Urea Nitrogen 35 H Creatinine 1.22 H Estimated GFR/1.73 m2 60 BUN/Creatinine Ratio 28.7 H Glucose Level 112 H Calcium Level 9.6 Magnesium Level 1.9 Total Bilirubin 1.1 H Aspartate Amino Transf (AST/SGOT) 73 H Alanine Aminotransferase (ALT/SGPT) 85 H Alkaline Phosphatase 135 H Ammonia < 10 L Troponin I High Sensitivity 20 Pro-B-Type Natriuretic Peptide 1034 H Total Protein 6.8 Albumin 3.5 Globulin 3.3 Albumin/Globulin Ratio 1.1 Lipase 31 Chemistry Comments White Blood Count 11.9 H Red Blood Count 4.18 L Hemoglobin 13.8 L Hematocrit 40.7 L Mean Corpuscular Volume 97.3 Mean Corpuscular Hemoglobin 33.1 H Mean Corpuscular Hemoglobin Concent 34.0 Red Cell Distribution Width 14.1 Platelet Count 162 Mean Platelet Volume 8.2 Neutrophils (%) (Auto) 83.8 H Lymphocytes (%) (Auto) 9.6 L Monocytes (%) (Auto) 6.3 Eosinophils (%) (Auto) 0.1 Basophils (%) (Auto) 0.2 Neutrophils # (Auto) 10.0 H Lymphocytes # (Auto) 1.1 Monocytes # (Auto) 0.8 Eosinophils # (Auto) 0.0 Basophils # (Auto) 0.0 Urine Comment Medical Decision Making Findings Patient although initially complained of hematemesis, he has not vomited once while being in the ED. however he did initially present with [id number] signs and symptoms indicating ETOH withdrawal. treated this with the Valium and phenobarbital with a magnesium folic acid and thiamine Diff Dx GI Bleed:Consideration: Include: AE fistula, Angiodysplasia, Bleeding diathesis, Blood loss anemia, Carcinoma, Diverticulosis, Diverticulitis, Esophageal varicies, Esophagitis, Gastritis, Gastroenteritis, Inflammatory BD, Bee-Rojas syndrome, Meckel's diverticulum, PUD, Other Diff Dx N/V/D:Considerations: Include: Appendicitis, Bowel obstruction, Dehydration, DKA, Diarrhea - bacterial, Diarrhea - parasitic, Diarrhea - viral, Diverticulitis, Diverticulosis, Drug toxicity, Electrolyte imbalance, Food poisoning, Gastroenteritis, GE reflux, GI bleed, Hepatitis, Hernia, Hypovolemia, Hypotension, Inflammatory BD, Impaction, Malnutrition, Pancreatitis, PUD, Renal failure, Urinary obstruction, UTI, Urolithiasis, Other Departure Disposition: 09 ADMITTED INPATIENT Impression: Primary Impression: Alcohol withdrawal Additional Impression: Hematemesis Referrals: NO PRIMARY CARE PROVIDER (PCP) Signature Scribe Signature: k Attestation: Scribed for Felipe Oden Implementation Project Coordinator by Felipe Sarmiento NP . 01/25/25 08:59 FELIPE ODEN NP Jan 25, 2025 08:59
[2025-01-25] MEDS ORDERED: NORMAL SALINE IV ONE ×3 (09:05→09:19)
[2025-01-25] MEDS ORDERED: PHENOBARBITAL IV ONE ×3 (09:05→09:19)
[2025-01-25] MEDS: folic acid 1mg/0.2ml inj IV ONE (09:37)
[2025-01-25] MEDS: magnesium sulf-water 2g/50mL 50 ML IV ONE (09:39)
[2025-01-25 10:13] LABS: CREATININE 1.22 MG/DL (0.60-1.10); TOTAL CARBON DIOXIDE 32.7 MMOL/L (24-32); eCRCL 63 ML/MIN; eGFR 60 ML/MIN
[2025-01-25 10:22] LABS: PRO BRAIN NATRIURETIC PEPTIDE 1034 PG/ML (0-125)
[2025-01-25 10:51] LABS: MEAN PLATELET VOLUME 8.2 FL (7.4-10.4); RED CELL DISTRIBUTION WIDTH 14.1 % (11.5-14.5)
[2025-01-25] MEDS: thiamine 100mg/ml 2ml inj. IV ONE (11:25)
[2025-01-25 11:29] LABS: LEUKOCYTE ESTERASE ,URINE NEGATIVE (Neg); NITRITES, URINE NEGATIVE (Neg); OCCULT BLOOD,URINE NEGATIVE (Neg)
[2025-01-25 11:33] LABS: UA COLLECTION TYPE URINAL
[2025-01-25] MEDS: normal saline 1000ml 1,000 ML IV ONE (12:08)
[2025-01-25 12:52] LABS: MEAN PLATELET VOLUME 7.9 FL (7.4-10.4); RED CELL DISTRIBUTION WIDTH 13.8 % (11.5-14.5)
--- NOTE | 2025-01-25 13:20 | ELECTROCARDIOGRAPH REPORT ---
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 Jonah Gaxiola Measurements Intervals [place] Rate: 103 P: 13 TX: 151 QRS: 45 QRSD: 86 T: 68 QT: 360 QTc: 471 Interpretive Statements Sinus tachycardia Low voltage, extremity leads Baseline wander in lead(s) II,aVF Electronically Signed On 01-31-2025 20:05:[address] Jonah Gaxiola Please click the below link to view image of tracing.
[2025-01-25] MEDS ORDERED: mag hydrox/Alum hydrox/simeth 30ml oral suspension PO PRN (13:30)
[2025-01-25] MEDS ORDERED: HYDROcodone/acetaminophen 5mg/325mg tablet PO PRN (13:30)
[2025-01-25] MEDS ORDERED: dextrose 50%-water 50ml dispensing syringe IV PRN (13:30)
[2025-01-25] MEDS ORDERED: magnesium hydroxide 30ml (MOM) UD suspension PO PRN (13:30)
[2025-01-25 15:03] LABS: INR 1.1 INR
[2025-01-25] MEDS ORDERED: ATOR40TA72 PO (18:34)
[2025-01-25] MEDS ORDERED: METO-395 PO (18:34)
[2025-01-25] MEDS ORDERED: LOSA25TA41 PO (18:34)
[2025-01-25] MEDS ORDERED: ASPI-1265 PO (18:34)
--- NOTE | 2025-01-25 18:52 | HISTORY AND PHYSICAL-Residence ---
History & Physical Providers to CC Resident Creating Document: RAYMOND CLEVELAND, [place] ~ History of Present Illness Primary Medical Doctor: [facility] Reason for Admit\Complaint: Coffee-ground emesis History of Present Illness 64-year-old male with a history of CAD s/p CABG about one year ago, PAD, alcohol abuse, hypertension came to the ER with a chief complaint of epigastric pain and vomitings with blood which started three days ago. The vomitings started three days ago which initially had blood and later was coffee-ground color, had about 10-15 episodes a day. Also has epigastric pain sharp, intermittent, graded 8/10, nonradiating, aggravated with eating or drinking anything. Denied any diarrhea, black color stools. He he takes aspirin, denies any other NSAIDs or any anticoagulants. His last colonoscopy was more than 10 years ago, had about 5 polyps removed at that time. Never had an EGD done. He denied eating insect from the outside. Denied any recent travel history. Denied any similar complaints in his family members. Patient received Ativan in the ER for alcohol withdrawal and appears drowsy He has chronic history of alcohol use, started in ED age of 13. Drinks about 20-25 beers a day, last drink was this morning. He briefly quit drinking alcohol after the CABG but restarted again. Denies any history of withdrawal seizures. His data specialist is Dr. Newman He follows up with Dr. Salinas for PAD Allergies: Coded Allergies: No Known Allergies (Unverified , 11/18/24) Home Medications Home Medications Active Reported Metoprolol Succinate 25 Mg Tab.sr.24h 1 Tab PO BID Aspirin 81 Mg Tab.chew 1 Tab PO DAILY Atorvastatin Calcium 40 Mg Tablet 1 Tab PO DAILY Losartan Potassium 25 Mg Tablet 1 Tab PO DAILY Past Medical History Past Medical History Hypertension Hyperlipidemia Peripheral artery disease CAD s/p CABG about one year ago Past Surgical History Surgical History Comment CABG one year ago Family History Family History: Patient reports no known family medical history. Past Social History Social History Comment Quit smoking four days ago, smokes about 2-3 packs a day history of alcohol use, started in ED age of 13. Drinks about 20-25 beers a day, last drink was this morning History of methamphetamine and cocaine use while he was younger Lives with his at his home. Alcohol Use: Abuse Drug Use: Methamphetamine, Cocaine Lives In: Home ROS All Other Systems: Reviewed and Negative Constitutional: Denies: no symptoms reported, see HPI, chills, diaphoresis, fever, malaise, weakness, other Eyes: Denies: no symptoms reported, see HPI, pain, discharge, blurred vision, double vision, itching, photophobia, redness, tearing, other ENT: Denies: no symptoms reported, see HPI, ear pain, ear bleeding, ear discharge, hearing loss, ear ringing, nose pain, nose bleeding, nose congestion, nose discharge, throat pain, throat swelling, voice change, mouth pain, mouth bleeding, mouth swelling, other Respiratory: Denies: no symptoms reported, see HPI, cough, orthopnea, shortness of breath, SOB with exertion, SOB at rest, stridor, wheezing, hemoptysis, pain with breathing, other Cardiovascular: Denies: no symptoms reported, see HPI, chest pain, left arm pain, diaphoresis, lightheadedness, syncope, edema, palpitations, irregular heart rate, other Gastrointestinal: Reports: abdominal pain, vomiting, hematemesis Genitourinary: Denies: no symptoms reported, see HPI, burning, discharge, dysuria, frequency, flank pain, hematuria, incontinence, pain, decreased urine output, urgency, other Male Genitalia: Denies: no symptoms reported, see HPI, penile discharge, penile sore, testicular pain, testicular swelling, other Neurological: Denies: no symptoms reported, see HPI, speech problem, headache, dizziness, fainting, tingling, left sided numbness, right sided numbness, left sided weakness, right sided weakness, problems walking, unable to move lower ext, unable to move upper ext, petit mal seizures, tonic-clonic seizures, cognitive dysfunction, other Musculoskeletal: Denies: no symptoms reported, see HPI, pain, swelling, back pain, gout, joint pain, joint swelling, muscle pain, muscle swelling, muscle stiffness, neck pain, other Exam Vitals: Vital Signs Date Time Temp Pulse Resp B/P (MAP) Pulse Ox O2 Delivery O2 Flow Rate FiO2 01/25/25 18:16 105 17 101/63 (76) 93 01/25/25 12:08 97.9 General: General: Awake and Alert, in mild acute distress. HEENT: Conjunctiva pink, Sclera clear, Mucus Membranes moist. Neck: Supple without masses and tenderness. Resp: Bilateral air entry present, diffuse wheezing Heart: Regular rhythm, normal S1-S2. Abdomen: Soft, diffuse tenderness, organomegaly. Normal bowel sounds x4 quadrant normoactive. No guarding or rigidity. Extremities: Normal ROM, no swelling, nontender. No cyanosis,clubbing or edema. SERVICES MANAGER: No gross motor or sensory abnormalities. Bilateral hand tremors. Skin: Warm and Dry. Diagnostic Data Last Recorded Lab Results: 01/25/25 1233 01/25/25 0933 Diagnostic Data: Laboratory Tests Test 01/25/25 14:43 Prothrombin Time 10.9 SECONDS (9.0-12.0) INR International Normalized Ratio 1.1 INR Coagulation Comments Advance Care Planning Advanced Care plannin - 30 Minutes (I spent 70 minutes in discussing various resuscitative measures, the patient chose to be full code) Additional Plan Assessment This is a 64-year-old male with a history of CAD s/p CABG about one year ago, PAD, alcohol abuse, hypertension came to the ER with a chief complaint of epigastric pain and vomitings with blood which started three days ago. Patient is being admitted for upper GI bleed and alcohol withdrawal. Plan Upper GI bleed Alcohol-induced gastritis Hemoglobin is stable, 13.7 Fecal occult blood done in the ER negative Stool occult blood ordered. Started on pantoprazole 40 mg IV b.i.d. Lipase negative Received 1 L of bolus in the ER D5 half NS@ 100 mL/hour We will follow up with a repeat CBC tomorrow On full liquid diet, will advance as tolerated Pain management-morphine, [place] q.4 PRN Encephalopathy likely toxic secondary to alcohol Alcohol abuse Alcohol withdrawal, CIWA score-18 Patient is started on alcohol withdrawal protocol Patient is tachycardic in his tremors in the bilateral hands Received Valium 10 mg, phenobarbital to 60 mg IV once in the ER Ativan, Haldol, clonidine p.r.n. Thiamine, folic acid daily Substance use navigator and social sciences research scientist consulted History of CAD s/p CABG Continue patient's home medication atorvastatin and metoprolol Held home medication aspirin. Possible CHF with preserved ejection fraction, 60-65%, not in acute exacerbation Pro BNP 1034 No signs of fluid overload. Echo done in 2023 showed an ejection fraction of 60-65%. Repeat echo ordered [place] likely secondary to renal tubular stasis Creatinine is 1.22 Baseline creatinine 0.79 BUN/creatinine 28.7 She had 1 L bolus, on continuous IV fluids We will follow up with repeat BNP. Hyponatremia Hypokalemic hypochloremic metabolic alkalosis likely secondary to vomiting and volume contraction Sodium 131, potassium 3.1, bicarbonate 32.7 Patient got 1 L bolus and he is on continuous IV fluids We will follow up with the repeat labs Elevated transaminases Elevated alkaline phosphatase AST 73, ALT 85, alkaline phosphatase 135 [place] level < 10 Lipase level normal Hypertension Continued patient's home medication losartan 25 mg and metoprolol 25 mg Code status: Full code DVT prophylaxis: Heparin GI prophylaxis: Protonix Diet: Full liquid diet Line/tubes: Peripheral IV line Status: Guarded Raymond Cleveland M.D PGY2 Date of Service: Jan 25, 2025 Billing Provider: KHOA BHATT MD Common Visit Codes: [id number] INP/OBS CARE (HIGH) Secondary Visit Codes: [id number] CARE PLAN 30 MINUTES RAYMOND CLEVELAND, RES Jan 25, 2025 18:52 KHOA BHATT MD Jan 29, 2025 10:50
[2025-01-25 19:32] VITALS: BP 114/73; PULSE 104; RESP 18; TEMP 98.1; O2SAT 91
[2025-01-25 19:55] LABS: CHOL/HDL RATIO 1.7 (0.00-4.99); LDL CHOLESTEROL 24 MG/DL (50-100)
[2025-01-25 20:00] VITALS: RESP 16; O2SAT 92
[2025-01-25] MEDS: heparin, porcine 5000 units/ml vial SQ SCH (20:00)
[2025-01-25] MEDS: thiamine 100mg/ml 2ml inj. IV SCH (20:01)
[2025-01-25] MEDS: docusate sod 100mg capsule PO SCH (20:01)
[2025-01-25] MEDS: metoprolol succinate 25mg (24-HOUR) SR. Tablet PO SCH (20:01)
[2025-01-25 20:06] LABS: CREATININE,URINE RANDOM 92.0 MG/DL; UA UREA RANDOM 983.0 MG/DL; URINE AMPHETAMINE SCREEN NEGATIVE (Neg); URINE BARBITUATE SCREEN NEGATIVE (Neg); URINE BENZODIAZEPINES SCREEN POSITIVE (Neg); URINE CANNABINOID SCREEN NEGATIVE (Neg); URINE COCAINE SCREEN NEGATIVE (Neg); URINE METHADONE SCREEN NEGATIVE (Neg); URINE OPIATE SCREEN NEGATIVE (Neg); URINE PHENCYCLIDINE SCREEN NEGATIVE (Neg)
[2025-01-25 22:00] VITALS: BP 95/62; PULSE 95; RESP 14; TEMP 97.5; O2SAT 95
[2025-01-25] MEDS ORDERED: potassium Cl 20 mEq SR tablet PO PRN (23:05)
[2025-01-26] VITALS (9 sets, daily range): BP systolic 98–110; BP diastolic 61–67; PULSE 79–102; RESP 13–21; TEMP 97.2–97.7; O2SAT 94–99
[2025-01-26] MEDS: potassium Cl 40MEQ/1/2NS 520ml 520 ML IV ONE (00:37)
[2025-01-26] MEDS: potassium Cl 40MEQ/1/2NS 520ml 520 ML IV PRN (00:45)
[2025-01-26 06:51] LABS: MEAN PLATELET VOLUME 8.0 FL (7.4-10.4); RED CELL DISTRIBUTION WIDTH 13.7 % (11.5-14.5)
[2025-01-26 07:06] LABS: CREATININE 0.82 MG/DL (0.60-1.10); TOTAL CARBON DIOXIDE 31.9 MMOL/L (24-32); eCRCL 94 ML/MIN; eGFR > 90 ML/MIN
[2025-01-26 07:17] LABS: BANDS% (MANUAL) 39.0 % (0-10); EOSINOPHILS % (MANUAL) 1.0 % (0-6); LYMPHOCYTES % (MANUAL) 13.0 % (21-51); MONOCYTES % (MANUAL) 13.0 % (2-12); NEUTROPHILS % (MANUAL) 34.0 % (42-75); PLATELET ESTIMATE DECREASED
[2025-01-26] MEDS: folic acid 1mg/0.2ml inj IV SCH (07:49)
[2025-01-26] MEDS: K and/or MAG REPLACEMENT MC SCH (08:00)
[2025-01-26 10:44] LABS: MEAN PLATELET VOLUME 8.2 FL (7.4-10.4); RED CELL DISTRIBUTION WIDTH 13.6 % (11.5-14.5)
[2025-01-26 10:55] LABS: CREATININE 0.75 MG/DL (0.60-1.10); TOTAL CARBON DIOXIDE 28.3 MMOL/L (24-32); eCRCL 102 ML/MIN; eGFR > 90 ML/MIN
[2025-01-26] MEDS: polyethylene glycol 3350 17gm powd pack PO SCH (11:58)
--- NOTE | 2025-01-26 14:05 | PROGRESS NOTE- Residence ---
Progress Note - Resident Providers to CC Resident Creating Document: RAO BOSTON RES ~ Antibiotic Timeout Antibiotic Ordered?: No Subjective Patient was seen and examined at his bedside. No further episode of nausea or vomiting/hematemesis reported. He was still mildly shaky. His hemoglobin has remained relatively stable. Objective Vital Signs Date Time Temp Pulse Resp B/P (MAP) Pulse Ox O2 Delivery O2 Flow Rate FiO2 01/26/25 08:24 101 98/61 (73) 01/26/25 08:00 20 99 0.0 01/26/25 06:00 97.5 Room Air General: Awake and Alert, no acute distress. HEENT: Conjunctiva pink, Sclera clear, Mucus Membranes moist. Neck: Supple without masses and tenderness. Resp: Expiratory wheezing Heart: Regular Rate and rhythm, normal S1 and S2 without murmur, rub or gallop. Abdomen: Soft and non tender no organomegaly Extremities: No cyanosis,clubbing or edema. Skin: Warm and Dry. Result Diagram: 01/26/25 1020 01/26/25 1020 Coagulation Studies Laboratory Tests Test 01/25/25 14:43 Prothrombin Time 10.9 SECONDS (9.0-12.0) INR International Normalized Ratio 1.1 INR Coagulation Comments Advance Care Planning Advanced Care plannin - 30 Minutes Assessment Assessment This is a 64-year-old male with a history of CAD s/p CABG about one year ago, PAD, alcohol abuse, hypertension came to the ER with a chief complaint of epigastric pain and vomitings with blood which started three days ago. Patient is being admitted for upper GI bleed and alcohol withdrawal. Plan Plan Acute upper GI bleed Alcohol-induced gastritis Fecal occult blood negative Continue pantoprazole 40 mg IV twice daily Continue IV hydration; D5 W/half NS discontinued due to hyponatremia. NS 100 mL/hour initiated Pain management; morphine [place] as needed on board Acute toxic encephalopathy Alcohol use disorder Alcohol withdrawal symptoms, CIWA score 18 On alcohol withdrawal protocol Continue thiamine and folic acid Acute kidney injury, prerenal, likely renal tubular stasis - resolved Responded well to IV hydration, Continue monitoring BMP Mild hyponatremia Metabolic alkalosis, likely secondary to N/V and dehydration D5W/half NS discontinued, continue NS 100 mL/hour Monitor BMP Elevated transaminases Likely liver injury 2/2 alcohol consumption Trending down; AST/ALT 54/60 today Hypertension Continue losartan and metoprolol Code status: Full code DVT prophylaxis: Heparin CAD status post CABG Continue atorvastatin, and metoprolol Aspirin withheld due to GI bleeding, we will resume after discharge CHF with preserved ejection fraction, not in acute exacerbation Elevated proBNP; 1035 EF 60-65% on echo done in 2023, new echo done, report still pending [facility] Resident Patient is seen and examined with resident at bedside continue with current care Date of Service: Jan 26, 2025 Billing Provider: TARUN CASTANEDA MD Common Visit Codes: [id number] INP/OBS CARE(HIGH) RAO BOSTNO, RES Jan 26, 2025 14:05 TARUN CASTANEDA MD Jan 28, 2025 17:53
[2025-01-26] MEDS: normal saline 1000ml 1,000 ML IV SCH (14:13)
--- NOTE | 2025-01-26 17:43 | CARDIOLOGY REPORT ---
APPROVED REPORT EXAM: Comprehensive 2D, Doppler, and color-flow Echocardiogram. Patient Location: 4024B Blood Pressure: 98//61 mmHg Heart Rate: 94 bpm Rhythm: NSR Indications CORONARY ARTERY DISEASE Troponin1 HS 20 ProBNP 1034 BENEFITS CLERK: Cesar Bryan MD PRIOR ECHOCARDIOGRAM: None. CABG X3 2023 HTN ETOH WITHDRAWL 2D Dimensions RVDd 3.2 cm IVSd 1.2 (0.7-1.1cm) LVDd 4.2 cm PWd 1.2 (0.7-1.1cm) IVSs 1.5 (0.8-1.2cm) LVDs 3.2 (2.5-4.0cm) PWs 1.5 (0.8-1.2cm) LVOT Diameter 1.99 (1.8-2.4cm) LVEF(%) 55.0 (>50%) FS (%) 24.1 % SV 37.3 ml CO 6.9 L/min M-Mode Dimensions Left Atrium(MM) 4.04 (2.5-4.0cm) Aortic Root 3.95 (2.2-3.7cm) Aortic Cusp Exc 1.81 (1.5-2.0cm) Aortic Valve AoV Peak [place]. 91.6 cm/s AoV VTI 16.0 cm AO Peak GR. 3.4 mmHg AO Mean GR. 2 mmHg LVOT VTI 10.72 cm LVOT Peak [place]. 66.7 cm/s MAGGIE(VTI)/BSA 2.09 cm2/m2 MAGGIE (VTI) 2.09 cm2 Mitral Valve MV E Velocity 52.6 cm/s MV Peak Gr. 1 mmHg MV DECEL TIME 300 ms MV A Velocity 48.1 cm/s MV PHT 60 ms E/A Ratio 1.1 MVA (PHT) 3.67 cm2 MV VMax49.0 cm/s Tricuspid Valve TR P. Velocity 168 cm/s RAP ESTIMATE 5 mmHg TR Peak Gr. 11 mmHg RVSP 16 mmHg LEFT VENTRICLE Normal LV size and function. Mild concentric hypertrophy. LVEF is 55%. RIGHT VENTRICLE Right ventricle is borderline dilated. The right ventricular systolic function is normal. RVSP 16 mmH g. ATRIA Left atrium is mildly dilated. AORTIC VALVE Trileaflet AV appears mildly sclerotic without stenosis. No insufficiency. MITRAL VALVE Mild mitral annular calcification without stenosis. No regurgitation. TRICUSPID VALVE TV appears structurally normal with mild regurgitation. PULMONIC VALVE Pulmonic valve is not well visualized. GREAT VESSELS Aortic root is mildly dilated. PERICARDIUM Normal pericardium. No effusion. Other Information Study Quality: Fair Conclusion Normal LV size and function. Mild concentric hypertrophy. LVEF is 55%. Right ventricle is borderline dilated. The right ventricular systolic function is normal. RVSP 16 m mHg. Left atrium is mildly dilated. Trileaflet AV appears mildly sclerotic without stenosis. No insufficiency. Mild mitral annular calcification without stenosis. No regurgitation. TV appears structurally normal with mild regurgitation. Aortic root is mildly dilated. Normal pericardium. No effusion.
[2025-01-26] MEDS: ipratropium/albuterol 3ml nebule NEB PRN (18:47)
[2025-01-26] MEDS: potassium Cl 20 mEq SR tablet PO PRN (19:30)
--- NOTE | 2025-01-26 20:12 | RADIOLOGY REPORT ---
CHEST RADIOGRAPH REASON FOR EXAM: wheezing COMPARISON: DI CHEST,SINGLE VIEW on DOS: 03/04/24 TECHNIQUE: One view of the chest is provided FINDINGS: The cardiomediastinal silhouette is within normal limits for technique. There are surgical changes in the mediastinum. There is no focal airspace disease. There is no significant pleural effus ion. No acute bony abnormality is identified. IMPRESSION: No radiographic evidence of acute cardiopulmonary process.
[2025-01-27] VITALS (12 sets, daily range): BP systolic 97–129; BP diastolic 60–87; PULSE 101–124; RESP 17–40; TEMP 97.2–97.7; O2SAT 92–97
[2025-01-27] MEDS: potassium Cl 40MEQ/1/2NS 520ml 520 ML IV ONE (02:10)
[2025-01-27 05:57] LABS: MEAN PLATELET VOLUME 8.3 FL (7.4-10.4); RED CELL DISTRIBUTION WIDTH 13.6 % (11.5-14.5)
[2025-01-27 06:17] LABS: CREATININE 0.84 MG/DL (0.60-1.10); TOTAL CARBON DIOXIDE 32.4 MMOL/L (24-32); eCRCL 91 ML/MIN; eGFR > 90 ML/MIN
[2025-01-27 07:12] LABS: BANDS% (MANUAL) 35.0 % (0-10); EOSINOPHILS % (MANUAL) 1.0 % (0-6); GIANT PLATELET FEW; LARGE PLATELETS FEW; LYMPHOCYTES % (MANUAL) 12.0 % (21-51); MONOCYTES % (MANUAL) 13.0 % (2-12); NEUTROPHILS % (MANUAL) 39.0 % (42-75); PLATELET ESTIMATE NORMAL
[2025-01-27] MEDS: HYDROcodone/acetaminophen 10/325mg tab PO PRN (07:52)
[2025-01-27] MEDS: ipratropium/albuterol 3ml nebule NEB SCH (12:40)
--- NOTE | 2025-01-27 13:59 | RADIOLOGY REPORT ---
CHEST RADIOGRAPH Indication: coarse breathing soudns Technique: Single frontal view of the chest was obtained Comparison: DI CHEST,SINGLE VIEW on DOS: 01/26/25 FINDINGS: Lines and Tubes: None Lungs: No focal consolidation. Pleura: No effusion. No pneumothorax. Cardiomediastinal contours: Unremarkable Bones: No acute osseous abnormality. Status post median sternotomy. IMPRESSION: 1. No acute cardiopulmonary disease.
[2025-01-27] MEDS: CefTRIAXone/D5W-Rocephin 1gm 50 ML IV SCH (14:11)
[2025-01-27] MEDS: azithromycin/NS 500mg/250ml 250 ML IV SCH (14:11)
--- NOTE | 2025-01-27 15:00 | PROGRESS NOTE- Residence ---
Progress Note - Resident Providers to CC Resident Creating Document: RAO BOSTON RES ~ Antibiotic Timeout Antibiotic Ordered?: Yes Subjective Patient was seen and examined at his bedside. Nonetheless, no further episode of nausea or vomiting/hematemesis and H&H has remained stable, he was more somnolent today. He also had shortness of breaths He was still mildly shaky. His hemoglobin has remained relatively stable; requiring 2 L supplemental oxygen via nasal cannula. Lactic acid, ammonia level were ordered, normal. Objective Vital Signs Date Time Temp Pulse Resp B/P (MAP) Pulse Ox O2 Delivery O2 Flow Rate FiO2 01/27/25 12:45 116 24 Nasal Cannula 3.0 01/27/25 12:40 92 32 01/27/25 10:00 97.2 101/62 (75) General: Oriented x2, somnolent. On 2 L supplemental oxygen HEENT: Conjunctiva pink, Sclera clear, Mucus Membranes moist. Neck: Supple without masses and tenderness. Resp: Unlabored. Lungs clear to auscultation bilaterally. Heart: Regular Rate and rhythm, normal S1 and S2 without murmur, rub or gallop. Abdomen: Diffuse expiratory wheezing Extremities: No cyanosis,clubbing or edema. Skin: Warm and Dry. Result Diagram: 01/27/25 0454 01/27/25 0454 Coagulation Studies Laboratory Tests Test 01/25/25 14:43 Prothrombin Time 10.9 SECONDS (9.0-12.0) INR International Normalized Ratio 1.1 INR Coagulation Comments Advance Care Planning Advanced Care plannin - 30 Minutes Assessment Assessment This is a 64-year-old male with a history of CAD s/p CABG about one year ago, PAD, alcohol abuse, hypertension came to the ER with a chief complaint of epigastric pain and vomitings with blood which started three days ago. Patient is being admitted for upper GI bleed and alcohol withdrawal. Plan Plan Acute upper GI bleed Alcohol-induced gastritis Fecal occult blood negative Continue pantoprazole 40 mg IV twice daily IV hydration discontinued, patient appeared fluid overload Lasix 60 mg IV bolus given Pain management; morphine [place] as needed on board Acute exacerbation of COPD Maintain oxygen saturation between 90-94%; on 2 L supplemental O2 via nasal canula Solu-Medrol 125 mg IV bolus given Solu-Medrol 40 Mg IV twice daily Ceftriaxone 1 g IV daily Azithromycin 500 mg IV daily DuoNeb nebulization every 4 hours Incentive spirometry Acute toxic/metabolic encephalopathy Alcohol use disorder Alcohol withdrawal symptoms, CIWA score 18 On alcohol withdrawal protocol Continue thiamine and folic acid More somnolent today, ammonia and lactic acid normal Acute kidney injury, prerenal, likely renal tubular stasis - resolved Responded well to IV hydration, Continue monitoring BMP Mild hyponatremia, improving; serum sodium 134 today Metabolic alkalosis, likely secondary to N/V and dehydration D5W/half NS discontinued, continue NS 100 mL/hour Monitor BMP Elevated transaminases Likely liver injury 2/2 alcohol consumption Trending down; AST/ALT 49/65 today Hypertension Continue losartan and metoprolol Code status: Full code DVT prophylaxis: Heparin CAD status post CABG Continue atorvastatin, and metoprolol Aspirin withheld due to GI bleeding, we will resume after discharge CHF with preserved ejection fraction, not in acute exacerbation Elevated proBNP; 1035 EF 60-65% on echo done in 2023, new echo LVEF is 55% [facility] Resident Patient seen and examined with resident at bedside. Continue with alcohol withdrawal protocol patient has become pancytopenia continue monitor Date of Service: Jan 27, 2025 Billing Provider: TARUN CASTANEDA MD Common Visit Codes: [id number] INP/OBS CARE(HIGH) RAO BOSTON, RES Jan 27, 2025 14:59 TARUN CASTANEDA MD Jan 28, 2025 17:53
[2025-01-27] MEDS: furosemide 10 MG/1 ML 10ml inj IV ONE (15:57)
[2025-01-27] MEDS: metoprolol tartrate 1mg/ml inj IV SCH (21:55)
[2025-01-27 22:35] LABS: OCCULT BLOOD STOOL POSITIVE (Neg)
[2025-01-28] VITALS (17 sets, daily range): BP systolic 101–144; BP diastolic 66–81; PULSE 113–129; RESP 18–40; TEMP 96.8–100.7; O2SAT 90–93
[2025-01-28 03:48] LABS: MEAN PLATELET VOLUME 8.4 FL (7.4-10.4); RED CELL DISTRIBUTION WIDTH 14.1 % (11.5-14.5)
[2025-01-28 03:59] LABS: CREATININE 1.22 MG/DL (0.60-1.10); TOTAL CARBON DIOXIDE 28.9 MMOL/L (24-32); eCRCL 63 ML/MIN; eGFR 60 ML/MIN
[2025-01-28 04:25] LABS: BANDS% (MANUAL) 15.0 % (0-10); LYMPHOCYTES % (MANUAL) 12.0 % (21-51); MONOCYTES % (MANUAL) 15.0 % (2-12); NEUTROPHILS % (MANUAL) 58.0 % (42-75); PLATELET ESTIMATE NORMAL
[2025-01-28] MEDS: methylPREDNISolone sod succ/PF 40mg inj. IV SCH (08:35)
--- NOTE | 2025-01-28 09:07 | ELECTROCARDIOGRAPH REPORT ---
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 ABIGAIL Cortes Measurements Intervals [place] Rate: 123 P: 12 AR: 148 QRS: 37 QRSD: 96 T: 88 QT: 329 QTc: 471 Interpretive Statements Sinus tachycardia Low voltage, extremity leads Nonspecific T abnormalities, lateral leads Artifact in lead(s) V1 Electronically Signed On 01-28-2025 12:56:[address] ABIGAIL Cortes Please click the below link to view image of tracing.
[2025-01-28] MEDS ORDERED: ipratropium/albuterol 3ml nebule NEB PRN (10:00)
[2025-01-28 10:28] LABS: ABG BASE EXCESS 3.4 mmol/L (-2.0-3.0); ABG HCO3 25.6 mmol/L (21.0-28.0); ABG OXYGEN SATURATION 90.5 % (94.0-98.0); ABG PCO2 (T) 32.0 mmHg (35.0-48.0); ABG PH (T) 7.521 (7.350-7.450); ABG PO2 (T) 55.9 mmHg (83.0-108.0); ALLEN'S TEST POSITIVE; FCOHb 2.3 % (0.5-1.5); FHHb 9.3 % (0.0-5.0); FIO2 32.0 mmHg/%; FLOW 3 L/min; FMetHb 0.3 % (0.0-1.5); FO2Hb 88.1 % (94.0-98.0); MODE NC; PATIENT TEMPERATURE 37.0; TOTAL HEMOGLOBIN 14.3 G/dl (13.5-17.5)
--- NOTE | 2025-01-28 11:47 | RADIOLOGY REPORT ---
CHEST RADIOGRAPH Indication: INCREASED SECRETIONS Technique: Single frontal view of the chest was obtained Comparison: DI CHEST,SINGLE VIEW on DOS: 01/27/25 FINDINGS: Lines and Tubes: None Lungs: No focal consolidation. Pleura: No effusion. No pneumothorax. Cardiomediastinal contours: Unremarkable Bones: No acute osseous abnormality. Status post CABG. IMPRESSION: 1. No acute cardiopulmonary disease.
--- NOTE | 2025-01-28 14:00 | PROGRESS NOTE- Residence ---
Progress Note - Resident Providers to CC Resident Creating Document: GUANAKITO CHAN RES ~ Antibiotic Timeout Antibiotic Ordered?: Yes Subjective Patient was seen and examined at his bedside. Patient appeared somnolent today. Has gurgling sounds. Continues to have bilateral tremors. Currently on 4 L of oxygen with nasal cannula. Objective Vital Signs Date Time Temp Pulse Resp B/P (MAP) Pulse Ox O2 Delivery O2 Flow Rate FiO2 01/28/25 10:58 117 24 Nasal Cannula 4.0 01/28/25 10:53 92 36 01/28/25 10:00 99.8 103/66 (78) Result Diagram: 01/28/25 0325 01/28/25 0325 General: Somnolent and drowsy, On 4 L supplemental oxygen HEENT: Conjunctiva pink, Sclera clear, Mucus Membranes moist. Neck: Supple without masses and tenderness. Resp: Unlabored. Lungs clear to auscultation bilaterally. Heart: Regular Rate and rhythm, normal S1 and S2 without murmur, rub or gallop. Abdomen: Diffuse expiratory wheezing Extremities: No cyanosis,clubbing PHLEBOTOMIST LAB ASSISTANT: Appeared somnolent and drowsy, no focal neurological deficits Coagulation Studies Laboratory Tests Test 01/25/25 14:43 Prothrombin Time 10.9 SECONDS (9.0-12.0) INR International Normalized Ratio 1.1 INR Coagulation Comments Assessment Assessment This is a 64-year-old male with a history of CAD s/p CABG about one year ago, PAD, alcohol abuse, hypertension came to the ER with a chief complaint of epigastric pain and vomitings with blood which started three days ago. Patient is being admitted for upper GI bleed and alcohol withdrawal. Plan Plan Acute upper GI bleed Alcohol-induced gastritis Fecal occult blood negative, stool occult positive Continue pantoprazole 40 mg IV twice daily Pain management; morphine [place] as needed on board Hemoglobin continues to remain stable Acute exacerbation of COPD Maintain oxygen saturation between 90-94%; on 2 L supplemental O2 via nasal canula Solu-Medrol 125 mg IV bolus given Solu-Medrol 40 Mg IV twice daily Ceftriaxone 1 g IV daily Azithromycin 500 mg IV daily DuoNeb nebulization every 4 hours Incentive spirometry 01/28/25 Repeat Chest x-ray no changes ABG showed pH of 7.5 pCO2 32.0 1 dose of Lasix 40 mg given Lactic acid mildly elevated 2.4 Acute toxic/metabolic encephalopathy Alcohol use disorder Alcohol withdrawal symptoms, CIWA score 18 On alcohol withdrawal protocol Continue thiamine and folic acid More somnolent today, ammonia and lactic acid normal 01/28/25 Interest to prefer Haldol in place of Ativan Currently on NPO because of the risk of aspiration Continues to be in sinus tachycardia. Acute kidney injury, prerenal, likely renal tubular stasis - resolved Responded well to IV hydration, Continue monitoring BMP 01/28/25 Up trending creatinine today, 1.22 BUN/creatinine-21.3 Patient appears fluid overloaded, fluids discontinued Mild hyponatremia, improved Metabolic alkalosis, improved likely secondary to N/V and dehydration-improved Fluids discontinued Monitor BMP Elevated transaminases Likely liver injury 2/2 alcohol consumption Trending down; AST/ALT 49/65 today Hypertension Continue losartan and metoprolol CAD status post CABG Continue atorvastatin, and metoprolol Aspirin withheld due to GI bleeding, we will resume after discharge CHF with preserved ejection fraction, not in acute exacerbation Elevated proBNP; 1035 EF 60-65% on echo done in 2023, new echo LVEF is 55% Code status: Full code DVT prophylaxis: SCD GI prophylaxis; pantoprazole Diet: Currently NPO because of the risk of aspiration Status: Guarded Guanakito Chan M.D PGY2 Patient has increased somnolence secondary to the benzodiazepines even though he is going through DTs I advised the nursing staff to use more Haldol in the benzodiazepines so he can wake up and possibly avoid getting an aspiration his lungs sound wet he is given more Lasix and we repeated the chest x-ray. Date of Service: Jan 28, 2025 Billing Provider: TARUN CASTANEDA MD Common Visit Codes: [id number] INP/OBS CARE(HIGH) GUANAKITO CHAN, RES Jan 28, 2025 14:00 TRAUN CASTANEDA MD Jan 28, 2025 17:54
--- NOTE | 2025-01-28 21:45 | ELECTROCARDIOGRAPH REPORT ---
[facility] Test Date: 2025-01-28 Test Time: 21:42:54 Pat Name: YNES CASTRO Department: 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 Alo Zavala Measurements Intervals [place] Rate: 121 P: 57 OR: 149 QRS: 36 QRSD: 92 T: 107 QT: 321 QTc: 456 Interpretive Statements Sinus tachycardia Low voltage, extremity leads Nonspecific T abnormalities, lateral leads Electronically Signed On 01-29-2025 8:09:[address] Alo Zavala Please click the below link to view image of tracing.
[2025-01-29] VITALS (22 sets, daily range): BP systolic 96–138; BP diastolic 69–85; PULSE 92–170; RESP 18–30; TEMP 96.7–98.6; O2SAT 91–96
[2025-01-29 05:50] LABS: MEAN PLATELET VOLUME 9.0 FL (7.4-10.4); RED CELL DISTRIBUTION WIDTH 13.6 % (11.5-14.5)
[2025-01-29 06:00] LABS: CREATININE 1.12 MG/DL (0.60-1.10); TOTAL CARBON DIOXIDE 27.1 MMOL/L (24-32); eCRCL 69 ML/MIN; eGFR 66 ML/MIN
[2025-01-29] MEDS ORDERED: magnesium sulf-water 4G/100mL 100 ML IV PRN (06:15)
[2025-01-29] MEDS ORDERED: magnesium sulf-water 2g/50mL 50 ML IV PRN (06:15)
[2025-01-29] MEDS ORDERED: magnesium Cl slow-release 64mg tablet PO PRN (06:15)
[2025-01-29] MEDS ORDERED: potassium Cl 20 mEq SR tablet PO PRN ×2 (06:15)
[2025-01-29] MEDS: K and/or MAG REPLACEMENT MC SCH (08:00)
--- NOTE | 2025-01-29 08:15 | ELECTROCARDIOGRAPH REPORT ---
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 ABIGAIL Cortes Measurements Intervals [place] Rate: 160 P: -37 [place]: 93 QRS: 18 QRSD: 94 T: 129 QT: 315 QTc: 514 Interpretive Statements Supraventricular tachycardia Low voltage, extremity leads Repolarization abnormality, prob rate related Electronically Signed On 01-29-2025 16:30:[address] ABIGAIL Cortes Please click the below link to view image of tracing.
[2025-01-29] MEDS: adenosine 3mg/ml 2ml vial IV ONE (08:20)
[2025-01-29] MEDS: thiamine 100mg/ml 2ml inj. IV SCH (08:34)
[2025-01-29] MEDS: metoprolol tartrate 1mg/ml inj IV ONE ×3 (08:51→21:23)
[2025-01-29] MEDS: potassium Cl 40MEQ/1/2NS 520ml 520 ML IV PRN (08:57)
--- NOTE | 2025-01-29 13:31 | PROGRESS NOTE- Residence ---
Progress Note - Resident Providers to CC Resident Creating Document: GUANAKITO CHAN RES ~ Antibiotic Timeout Antibiotic Ordered?: Yes Subjective Patient was seen and examined at his bedside. Patient was much more awake and alert today. Failed swallow evaluation test in the morning, continues to be on NPO for now. This morning he was in SVT with a heart rate of up to 160, ordered adenosine 12 mg once which the patient did not get as he was getting transferred to PCU, returned back into sinus tach, one dose of IV 5 mg metoprolol was given Objective Vital Signs Date Time Temp Pulse Resp B/P (MAP) Pulse Ox O2 Delivery O2 Flow Rate FiO2 01/29/25 11:27 111 20 Nasal Cannula 3.0 01/29/25 11:22 92 32 01/29/25 09:02 96/72 (80) 01/29/25 06:00 98.0 Result Diagram: 01/29/25 0456 01/29/25 0456 General: Awake and alert, On 4 L supplemental oxygen HEENT: Conjunctiva pink, Sclera clear, Mucus Membranes moist. Neck: Supple without masses and tenderness. Resp: Unlabored. Lungs clear to auscultation bilaterally. Heart: Regular Rate and rhythm, normal S1 and S2 without murmur, rub or gallop. 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 Patient is being admitted for upper GI bleed and alcohol withdrawal. Plan Plan Acute upper GI bleed Alcohol-induced gastritis Fecal occult blood negative, stool occult positive Continue pantoprazole 40 mg IV twice daily Pain management; morphine [place] as needed on board Hemoglobin continues to remain stable 01/29/2025 Hemoglobin continues to be stable Continued on Protonix 40 mg b.i.d. Acute exacerbation of COPD Maintain oxygen saturation between 90-94%; on 2 L supplemental O2 via nasal canula Solu-Medrol 125 mg IV bolus given Solu-Medrol 40 Mg IV twice daily Ceftriaxone 1 g IV daily Azithromycin 500 mg IV daily DuoNeb nebulization every 4 hours Incentive spirometry 01/28/25 Repeat Chest x-ray no changes ABG showed pH of 7.5 pCO2 32.0 1 dose of Lasix 40 mg given Lactic acid mildly elevated 2.4 01/29/2025 Currently on 3 L of oxygen with nasal cannula. Supraventricular tachycardia Patient was not SVT this morning, ordered one dose of any nose in but could not be given as the patient was in ortho floor, was transferred to PCU and patient was in sinus tach, one dose of IV metoprolol 5 mg given. Acute toxic/metabolic encephalopathy Alcohol use disorder Alcohol withdrawal symptoms, CIWA score 18 On alcohol withdrawal protocol Continue thiamine and folic acid More somnolent today, ammonia and lactic acid normal 01/28/25 Interest to prefer Haldol in place of Ativan Currently on NPO because of the risk of aspiration Continues to be in sinus tachycardia. 01/29/2025 Is more awake and alert today. Failed swallow evaluation test. Continues to be on NPO for the risk of aspiration. Acute kidney injury, prerenal, likely renal tubular stasis - resolved Responded well to IV hydration, Continue monitoring BMP 01/28/25 Up trending creatinine today, 1.22 BUN/creatinine-21.3 Patient appears fluid overloaded, fluids discontinued 01/29/2025 Creatinine improved to 1.12 Mild hyponatremia, improved Metabolic alkalosis, improved likely secondary to N/V and dehydration-improved Fluids discontinued Monitor BMP Elevated transaminases Likely liver injury 2/2 alcohol consumption Trending down; AST/ALT 49/65 today Hypertension Continue losartan and metoprolol CAD status post CABG Continue atorvastatin, and metoprolol Aspirin withheld due to GI bleeding, we will resume after discharge CHF with preserved ejection fraction, not in acute exacerbation Elevated proBNP; 1035 EF 60-65% on echo done in 2023, new echo LVEF is 55% Code status: Full code DVT prophylaxis: SCD GI prophylaxis; pantoprazole Diet: Currently NPO because of the risk of aspiration Status: Guarded Guanakito Chan M.D PGY2 Date of Service: Jan 29, 2025 Billing Provider: TARUN CASTANEDA MD, PRAVAHIKA, RES Jan 29, 2025 13:31
[2025-01-30] VITALS (16 sets, daily range): BP systolic 124–142; BP diastolic 75–86; PULSE 89–111; RESP 16–25; TEMP 97–98.3; O2SAT 92–100
[2025-01-30 06:09] LABS: MEAN PLATELET VOLUME 8.7 FL (7.4-10.4); RED CELL DISTRIBUTION WIDTH 13.9 % (11.5-14.5)
[2025-01-30 06:25] LABS: CREATININE 0.70 MG/DL (0.60-1.10); TOTAL CARBON DIOXIDE 22.2 MMOL/L (24-32); eCRCL 110 ML/MIN; eGFR > 90 ML/MIN
[2025-01-30 09:00] LABS: BANDS% (MANUAL) 9.0 % (0-10); LYMPHOCYTES % (MANUAL) 3.0 % (21-51); MONOCYTES % (MANUAL) 11.0 % (2-12); NEUTROPHILS % (MANUAL) 77.0 % (42-75); PLATELET ESTIMATE NORMAL
[2025-01-30] MEDS ORDERED: POTASSIUM CHLORIDE 20 MEQ/15 ML oral solution PO PRN (09:38)
[2025-01-30] MEDS: POTASSIUM CHLORIDE 20 MEQ/15 ML oral solution PO PRN (11:04)
[2025-01-30] MEDS: mag hydrox/Alum hydrox/simeth 30ml oral suspension PO PRN (13:38)
--- NOTE | 2025-01-30 17:33 | PROGRESS NOTE- Residence ---
Progress Note - Resident Providers to CC Resident Creating Document: GUANAKITO CHAN RES ~ Antibiotic Timeout Antibiotic Ordered?: No Subjective Patient was seen and examined at his bedside. Patient looks much better today. He is awake alert and oriented and able to have a conversation. Passed the swallow evaluation this morning, currently on pureed diet. His heart rate has been controlled all night. Objective Vital Signs Date Time Temp Pulse Resp B/P (MAP) Pulse Ox O2 Delivery O2 Flow Rate FiO2 01/30/25 15:28 95 18 Nasal Cannula 2.0 01/30/25 15:21 96 32 01/30/25 15:00 97.0 127/86 (100) Result Diagram: 01/30/25 0534 01/30/25 0534 General: Awake and alert, On 4 L supplemental oxygen HEENT: Conjunctiva pink, Sclera clear, Mucus Membranes moist. Neck: Supple without masses and tenderness. Resp: Unlabored. Lungs clear to auscultation bilaterally. Heart: Regular Rate and rhythm, normal S1 and S2 without murmur, rub or gallop. 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 Patient is being admitted for upper GI bleed and alcohol withdrawal. Secondary for admission he went into SVT in has been shifted to PCU. Plan Plan Acute upper GI bleed Alcohol-induced gastritis Fecal occult blood negative, stool occult positive Continue pantoprazole 40 mg IV twice daily Pain management; morphine [place] as needed on board Hemoglobin continues to remain stable 01/29/2025 Hemoglobin continues to be stable Continued on Protonix 40 mg b.i.d. 01/30/2025 Hemoglobin is 12.8. Acute exacerbation of COPD Maintain oxygen saturation between 90-94%; on 2 L supplemental O2 via nasal canula Solu-Medrol 125 mg IV bolus given Solu-Medrol 40 Mg IV twice daily Ceftriaxone 1 g IV daily Azithromycin 500 mg IV daily DuoNeb nebulization every 4 hours Incentive spirometry 01/28/25 Repeat Chest x-ray no changes ABG showed pH of 7.5 pCO2 32.0 1 dose of Lasix 40 mg given Lactic acid mildly elevated 2.4 01/29/2025 Currently on 3 L of oxygen with nasal cannula. 01/30/2025 Currently on 2 L of oxygen with nasal cannula, we will slowly deescalate Supraventricular tachycardia Patient was not SVT this morning, ordered one dose of any nose in but could not be given as the patient was in ortho floor, was transferred to PCU and patient was in sinus tach, one dose of IV metoprolol 5 mg given. 01/30/25 Heart rate is stable 90s Metoprolol succinate 50 mg daily Acute toxic/metabolic encephalopathy Alcohol use disorder Alcohol withdrawal symptoms, CIWA score 18 On alcohol withdrawal protocol Continue thiamine and folic acid More somnolent today, ammonia and lactic acid normal 01/28/25 Interest to prefer Haldol in place of Ativan Currently on NPO because of the risk of aspiration Continues to be in sinus tachycardia. 01/29/2025 Is more awake and alert today. Failed swallow evaluation test. Continues to be on NPO for the risk of aspiration. 01/30/2025 Passed the swallow evaluation, started on pureed diet Acute kidney injury, prerenal, likely renal tubular stasis - resolved Responded well to IV hydration, Continue monitoring BMP 01/28/25 Up trending creatinine today, 1.22 BUN/creatinine-21.3 Patient appears fluid overloaded, fluids discontinued 01/29/2025 Creatinine improved to 1.12 01/30/2025 Creatinine is back to normal, 0.7 Mild hyponatremia, improved Metabolic alkalosis, improved likely secondary to N/V and dehydration-improved Fluids discontinued Monitor BMP Elevated transaminases Likely liver injury 2/2 alcohol consumption Trending down; AST/ALT 49/65 today Hypertension Continue losartan and metoprolol CAD status post CABG Continue atorvastatin, and metoprolol Aspirin withheld due to GI bleeding, we will resume after discharge CHF with preserved ejection fraction, not in acute exacerbation Elevated proBNP; 1035 EF 60-65% on echo done in 2023, new echo LVEF is 55% Code status: Full code DVT prophylaxis: SCD GI prophylaxis; pantoprazole Diet: Currently NPO because of the risk of aspiration Status: Guarded Disposition: Patient needs re evaluation with physical therapy. Currently on 2 L of oxygen, we will slowly wean off. Likely discharge tomorrow Guanakito Chan M.D PGY2 Date of Service: Jan 30, 2025 Billing Provider: TARUN CASTANEDA MD,GUANAKITO, RES Jan 30, 2025 17:33
[2025-01-30] MEDS: lactose-reduced food (Ensure Enlive) - 237ml bottle PO SCH (18:21)
[2025-01-30] MEDS: metoprolol succinate 25mg (24-HOUR) SR. Tablet PO ONE (19:53)
[2025-01-31] VITALS (17 sets, daily range): BP systolic 104–135; BP diastolic 71–82; PULSE 89–106; RESP 18–25; TEMP 97.2–97.9; O2SAT 92–99
[2025-01-31] MEDS: metoprolol succinate 25mg (24-HOUR) SR. Tablet PO SCH (08:21)
[2025-01-31] MEDS: ondansetron/PF 4mg/2ml inj IV PRN (08:30)
[2025-01-31 10:29] LABS: MEAN PLATELET VOLUME 8.7 FL (7.4-10.4); RED CELL DISTRIBUTION WIDTH 13.8 % (11.5-14.5)
[2025-01-31] MEDS: loperamide 2mg capsule PO ONE (11:20)
[2025-01-31 11:42] LABS: CREATININE 0.70 MG/DL (0.60-1.10); TOTAL CARBON DIOXIDE 22.2 MMOL/L (24-32); eCRCL 110 ML/MIN; eGFR > 90 ML/MIN
--- NOTE | 2025-01-31 13:32 | PROGRESS NOTE- Residence ---
Progress Note - Resident Providers to CC Resident Creating Document: GUANAKITO CHAN RES ~ Antibiotic Timeout Antibiotic Ordered?: No Subjective Patient was seen and examined at his bedside. Patient is awake alert and oriented. His heart rate continues to be controlled. He and about three episodes of diarrhea last night. Objective Vital Signs Date Time Temp Pulse Resp B/P (MAP) Pulse Ox O2 Delivery O2 Flow Rate FiO2 01/31/25 12:20 16 01/31/25 11:30 97 Room Air 21 01/31/25 11:26 97.9 125/71 (89) 97 1.0 Result Diagram: 01/31/2552401/31/25524 General: Awake and alert, On 4 L supplemental oxygen HEENT: Conjunctiva pink, Sclera clear, Mucus Membranes moist. Neck: Supple without masses and tenderness. Resp: Unlabored. Lungs clear to auscultation bilaterally. Heart: Regular Rate and rhythm, normal S1 and S2 without murmur, rub or gallop. 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 Patient is being admitted for upper GI bleed and alcohol withdrawal. Secondary for admission he went into SVT in has been shifted to PCU. Plan Plan Acute upper GI bleed Alcohol-induced gastritis Fecal occult blood negative, stool occult positive Continue pantoprazole 40 mg IV twice daily Pain management; morphine [place] as needed on board Hemoglobin continues to remain stable 01/29/2025 Hemoglobin continues to be stable Continued on Protonix 40 mg b.i.d. 01/30/2025 Hemoglobin is 12.8. Acute exacerbation of COPD Maintain oxygen saturation between 90-94%; on 2 L supplemental O2 via nasal canula Solu-Medrol 125 mg IV bolus given Solu-Medrol 40 Mg IV twice daily Ceftriaxone 1 g IV daily Azithromycin 500 mg IV daily DuoNeb nebulization every 4 hours Incentive spirometry 01/28/25 Repeat Chest x-ray no changes ABG showed pH of 7.5 pCO2 32.0 1 dose of Lasix 40 mg given Lactic acid mildly elevated 2.4 01/29/2025 Currently on 3 L of oxygen with nasal cannula. 01/30/2025 Currently on 2 L of oxygen with nasal cannula, we will slowly deescalate 01/31/2025 Saturating at 97 on room air Completed five day course of ceftriaxone and azithromycin Supraventricular tachycardia Patient was not SVT this morning, ordered one dose of any nose in but could not be given as the patient was in ortho floor, was transferred to PCU and patient was in sinus tach, one dose of IV metoprolol 5 mg given. 01/30/25 Heart rate is stable 90s Metoprolol succinate 50 mg daily 01/31/2025 Heart rate continues to be stable. Acute toxic/metabolic encephalopathy -improved Alcohol use disorder Alcohol withdrawal symptoms, CIWA score 18 On alcohol withdrawal protocol Continue thiamine and folic acid More somnolent today, ammonia and lactic acid normal 01/28/25 Interest to prefer Haldol in place of Ativan Currently on NPO because of the risk of aspiration Continues to be in sinus tachycardia. 01/29/2025 Is more awake and alert today. Failed swallow evaluation test. Continues to be on NPO for the risk of aspiration. 01/30/2025 Passed the swallow evaluation, started on pureed diet 01/31/2025 Awake alert and oriented. Waiting for rehab placement. Acute kidney injury, prerenal, likely renal tubular stasis - resolved Responded well to IV hydration, Continue monitoring BMP 01/28/25 Up trending creatinine today, 1.22 BUN/creatinine-21.3 Patient appears fluid overloaded, fluids discontinued 01/29/2025 Creatinine improved to 1.12 01/30/2025 Creatinine is back to normal, 0.7 Mild hyponatremia, improved Metabolic alkalosis, improved likely secondary to N/V and dehydration-improved Fluids discontinued Monitor BMP Elevated transaminases-improved Likely liver injury 2/2 alcohol consumption Trending down; AST/ALT 49/65 today Hypertension Continue losartan and metoprolol CAD status post CABG Continue atorvastatin, and metoprolol Aspirin withheld due to GI bleeding, we will resume after discharge CHF with preserved ejection fraction, not in acute exacerbation Elevated proBNP; 1035 EF 60-65% on echo done in 2023, new echo LVEF is 55% Code status: Full code DVT prophylaxis: SCD GI prophylaxis; pantoprazole Diet: Currently NPO because of the risk of aspiration Status: Guarded Disposition: Patient needs re evaluation with physical therapy. Currently on 2 L of oxygen, we will slowly wean off. Likely discharge tomorrow Guanakito Chan M.D PGY2 Date of Service: Jan 31, 2025 Billing Provider: TARUN CASTANEDA MD, PRAVAHIKA, RES Jan 31, 2025 13:32
[2025-01-31] MEDS: methylPREDNISolone sod succ/PF 40mg inj. IV SCH (19:54)
[2025-02-01] VITALS (20 sets, daily range): BP systolic 100–120; BP diastolic 63–79; PULSE 101–121; RESP 13–39; TEMP 90.6–98.3; O2SAT 88–98
[2025-02-01 06:41] LABS: MEAN PLATELET VOLUME 9.2 FL (7.4-10.4); RED CELL DISTRIBUTION WIDTH 14.0 % (11.5-14.5)
[2025-02-01 07:26] LABS: CREATININE 0.79 MG/DL (0.60-1.10); TOTAL CARBON DIOXIDE 22.3 MMOL/L (24-32); eCRCL 97 ML/MIN; eGFR > 90 ML/MIN
[2025-02-01 07:38] LABS: BANDS% (MANUAL) 2.0 % (0-10); LYMPHOCYTES % (MANUAL) 2.0 % (21-51); METAMYLEOCYTES% (MANUAL) 1.0 % (0-0); MONOCYTES % (MANUAL) 7.0 % (2-12); NEUTROPHILS % (MANUAL) 88.0 % (42-75)
[2025-02-01 07:39] LABS: PLATELET ESTIMATE NORMAL
--- NOTE | 2025-02-01 08:15 | RADIOLOGY REPORT ---
CHEST RADIOGRAPH Indication: sudden incease in WBC Technique: Single frontal view of the chest was obtained COMPARISON: DI CHEST,SINGLE VIEW on DOS: 01/28/25, DI CHEST,SINGLE VIEW on DOS: 01/27/25, DI CHEST,SING LE VIEW on DOS: 01/26/25, DI CHEST,SINGLE VIEW on DOS: 03/04/24 FINDINGS: Lines and Tubes: None Lungs: Clear Pleura: No effusion. No pneumothorax. Lucency in the left lung apex is felt to represent artifact. Cardiomediastinal contours: Unremarkable Bones: Unremarkable IMPRESSION: No acute disease. No significant interval change.
--- NOTE | 2025-02-01 10:21 | RADIOLOGY REPORT ---
ULTRASOUND ABDOMEN limited, 4 QUADRANTS INDICATION: abd distension Evaluate for ascites. TECHNIQUE: The four quadrants of the abdomen were scanned in torres-scale to assess for the presence of ascites. N o solid organ assessment was performed. FINDINGS: Minimal ascites. IMPRESSIONS: Minimal ascites.
--- NOTE | 2025-02-01 11:50 | PROGRESS NOTE- Residence ---
Progress Note - Resident Providers to CC Resident Creating Document: GUANAKITO [place] RES ~ Antibiotic Timeout Antibiotic Ordered?: Yes Subjective Patient was seen and examined at his bedside. He appeared gargling today, unable to cough up the secretions. His abdomen was distended, NG tube was placed about 1.2 L of bilious fluid was suctioned. Patient is currently on NPO Patient has been evaluated by Dr. Muniz today, EGD scheduled for tomorrow. Objective Vital Signs Date Time Temp Pulse Resp B/P (MAP) Pulse Ox O2 Delivery O2 Flow Rate FiO2 02/01/25 08:00 20 Nasal Cannula 2.0 28 02/01/25 07:46 117 02/01/25 07:42 88 02/01/25 06:00 96.1 120/79 (93) Result Diagram: 02/01/25 0542 02/01/25 0542 General: Awake and alert, on 2 L of supplemental oxygen. HEENT: Conjunctiva pink, Sclera clear, Mucus Membranes moist. Neck: Supple without masses and tenderness. Resp: Some gurgling sounds heard because of the secretions. Heart: Regular Rate and rhythm, normal S1 and S2 without murmur, rub or gallop. Abdomen: Abdomen appeared distended, no tenderness, no guarding, no rigidity. 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 Stool occult positive. Patient is admitted for acute upper GI bleed likely secondary to alcohol-induced gastritis. Hemoglobin is stable. Patient is scheduled for EGD tomorrow. Patient is on alcohol withdrawal protocol. Currently patient a slightly drowsy, there is a risk of aspiration. On 2nd day of admission patient developed acute exacerbation of COPD, currently on 2 L of oxygen. On methylprednisolone 20 mg b.i.d., completed five day course of ceftriaxone and azithromycin. On 30 of admission patient continued to be tachycardic, withdrawing from alcohol and went into SVT, was transferred to U. Currently in sinus tach. On metoprolol succinate 50 mg daily. Patient developed ileus, NG tube was placed which drained 1.2 L. abdominal x-ray showed small bowel distention 7.[address] with oral and IV contrast ordered. Consulted Dr. Salinas Plan Possible Small-bowel ileus Patient had gastric distention today. Cause of ileus-patient had hypokalemia at the time of admission [place], Ativan discontinued. NG tube placed, drained 1.2 L of bilious fluid. Abdominal x-ray showed severely distended small bowel loops up to 7.[address] abdomen with oral and IV contrast started Consulted Dr. Salinas for further recommendations. Positive SIRS criteria Patient has sudden leukocytosis with tachycardia WBC increased from 15.6-26.8 Lactic acid normal, procalcitonin 0.62 Blood cultures show no growth after one day Leukocytosis could be secondary to combination of vomitings secondary to ileus and steroids Tachycardic could be secondary to ileus and dehydration On LR @ 125 mL/hour Started Zosyn. Acute upper GI bleed Alcohol-induced gastritis stool occult positive Hemoglobin stable On pantoprazole 40 mg daily 02/01/[address] Muniz, possible EGD tomorrow(can be delayed because of the ileus) Acute exacerbation of COPD Maintain oxygen saturation between 90-94%; on 2 L supplemental O2 via nasal canula Was given Solu-Medrol 125 mg, weaned to 20 b.i.d. Completed five day course of ceftriaxone and azithromycin. Discontinued DuoNeb p.r.n. Incentive spirometry. Supraventricular tachycardia Patient was not SVT this morning, ordered one dose of any nose in but could not be given as the patient was in ortho floor, was transferred to PCU and patient was in sinus tach, one dose of IV metoprolol 5 mg given. Currently in sinus tach with heart rate ranging from 110-120, Currently on metoprolol succinate 50 mg daily Acute toxic/metabolic encephalopathy -improved Alcohol use disorder Alcohol withdrawal symptoms, CIWA score 18 On alcohol withdrawal protocol Continue thiamine and folic acid On 01/28/25 patient was on NPO because of risk of aspiration On 01/30/2025, passed swallow evaluation and was on soft diet On 02/01/2025, patient appears more drowsy likely secondary to ileus, on NG tube and NPO. Ativan and opiates discontinued Acute kidney injury, prerenal, likely renal tubular stasis - resolved Creatinine and was 1.22 on 01/28/25 Improved with IV fluids. Mild hyponatremia, improved Metabolic alkalosis, improved likely secondary to N/V and dehydration-improved Fluids discontinued Monitor BMP Elevated transaminases-improved Likely liver injury 2/2 alcohol consumption Trending down. Hypertension Continue losartan and metoprolol CAD status post CABG Continue atorvastatin, and metoprolol Aspirin withheld due to GI bleeding, we will resume after discharge CHF with preserved ejection fraction, not in acute exacerbation Elevated proBNP; 1035 EF 60-65% on echo done in 2023, new echo LVEF is 55% Code status: Full code DVT prophylaxis: SCD GI prophylaxis; pantoprazole Diet: NPO Lines/tubes: Peripheral IV line, NG tube Status: Guarded Disposition: Small-bowel ileus, CT abdomen with oral and IV contrast started, consulted Dr. Salinas. Upper GI bleed, consulted Dr. Sean Cleveland M.D PGY2 Date of Service: Feb 01, 2025 Billing Provider: KHOA BHATT MD Common Visit Codes: [id number] INP/OBS CARE(HIGH) GUANAKITO [place], [place] Feb 01, 2025 11:49 KHOA BHATT MD Feb 01, 2025 21:22
[2025-02-01] MEDS: ringers solution, lacted 1,000 ML IV SCH (12:07)
--- NOTE | 2025-02-01 15:12 | RADIOLOGY REPORT ---
Date: 02/01/2025 02:50 PM Examination: DI ABDOMEN,SINGLE VIEW(KUB) History: ABD DISTENSION Comparison: None TECHNIQUE: Frontal views of the abdomen was obtained. FINDINGS: Severely distended small bowel loops measuring up to 7.9 cm The lung bases are unremarkable. No acute osseous abnormality identified. IMPRESSION: Severely distended small bowel loops measuring up to 7.9 cm Nasogastric tube tip in the stomach.
[2025-02-01] MEDS: piperacillin/tazo 3.375gm/50ml 50 ML IV SCH (16:19)
[2025-02-01] MEDS: nicotine 21mg patch - 24 hr TD SCH (16:19)
--- NOTE | 2025-02-01 17:14 | CONSULTATION ---
DATE OF CONSULTATION: 02/01/2025 DICTATING PHYSICIAN: Caryn Finch MD REASON FOR CONSULTATION: Hematemesis. HISTORY OF PRESENT ILLNESS: The patient is a 64-year-old with history of coronary artery disease, status post CABG about a year ago. Has a history of alcoholism and hypertension, came into the emergency department with abdominal pain and coffee-grounds emesis. He had started vomiting about 3-4 days ago, and subsequently, he developed hematemesis which was coffee-grounds emesis about 10-15 episodes per day. Never had an endoscopy done. He does have a history of colon polyps and colonoscopy was more than 10 years ago. He has remained stable since he has been here, although he has had alcohol withdrawal symptoms intermittently and also COPD exacerbation. He remains to be stable at this time. PAST MEDICAL HISTORY: As above. FAMILY HISTORY: Noncontributory. PERSONAL HISTORY: Noncontributory. REVIEW OF SYSTEMS: A 12-point review of systems, same as history of present illness. PHYSICAL EXAMINATION: GENERAL: He is awake, appears somewhat dehydrated, appears chronically ill. VITAL SIGNS: Normal. HEART: Normal. LUNGS: Normal. ABDOMEN: Soft, nontender. No masses, no organomegaly. Bowel sounds are present. Apparently, recently he had abdominal distention and an NG tube was placed and more than a liter of bilious material was aspirated. LABORATORY VALUES: Were reviewed, which are essentially unremarkable except for a white count of 26,000 today. Hemoglobin has remained stable. Coagulation profile is normal and he has been Hemoccult positive. IMPRESSION: A 64-year-old gentleman with history of alcoholism and COPD, comes in because of coffee-grounds emesis. He has had some intermittent episodes of exacerbation of COPD and alcohol withdrawal. While here in the hospital, he remains to be stable at this time. The NG tube placement has decompressed the abdomen. I had recommended done and the results of which are pending. RECOMMENDATIONS: Continue current treatment and n.p.o. and diagnostic endoscopy will be done tomorrow. The risks and benefits were explained, understands and wishes to proceed. Further recommendations will be made after the endoscopy. Caryn Finch MD TID: [id number] RECEIPT: [id number] JUDE/NANI
[2025-02-01] MEDS ORDERED: iohexol 300mg/ml 100ml inj. ONE (18:38)
--- NOTE | 2025-02-01 19:28 | RADIOLOGY REPORT ---
COMPUTERIZED TOMOGRAPHY ABDOMEN AND PELVIS WITHOUT CONTRAST REASON FOR EXAM: Small-bowel distention COMPARISON: None TECHNIQUE: Spiral scans were acquired from the diaphragm to the symphysis pubis without intravenous c ontrast administration. 2-D coronal and sagittal reformatted images were provided. Radiation optimiza tion: All CT scans at this facility use at least one of these dose optimization techniques: Automated exposure control mA and/or kV adjustment per patient size (includes targeted exams where dose is mat ched to clinical indication) or iterative reconstruction. RADIATION DOSE: CTDI: 18 mGy DLP: 1022 mGy-cm FINDINGS: There is patchy airspace disease in bilateral lower lobes, dqado-eieefuv-xxei-left. There is subtle consolidation of the dependent portion of the right lower lobe. There is small right pleural effusion . There is fluid filling the distal esophagus. There is an enteric tube terminating in the gastric an trum. There is no pericardial effusion. The spleen is not enlarged. The liver is normal in size and contour. The portal vein is patent. No ca lcified gallstone is identified. The pancreas is within normal limits. The adrenal glands are normal. The kidneys enhance symmetrically. There is a 1.7 cm indeterminate lesion at the inferior pole of th e left kidney. There is no hydronephrosis of either kidney. There is mild scarring in both kidneys. There is approximately 90% narrowing of the origin of the SMA with soft and calcified plaque. The OSCAR is likely occluded. There is extensive atherosclerosis. There is no abdominal aortic aneurysm. No pa thologic lymphadenopathy is identified by size criteria. There is a small amount of free fluid in the abdomen and pelvis. The urinary bladder is unremarkable. The prostate is enlarged. There are few sc attered colonic diverticula without evidence of diverticulitis. There is no significant colonic stool burden. There is moderate to severe distention of the small bowel with fluid with a transition point in the right upper quadrant (series 2, image 59, series 602, image 44, series 601, image 29), consis tent with high-grade small-bowel obstruction. The terminal ileum is decompressed. The appendix is no t seen. There is no pneumoperitoneum. No acute osseous abnormality is identified. There are degenerat chano changes in the lumbar spine. IMPRESSION: High-grade bowel obstruction in the distal ileum in the right upper quadrant. This is best appreciate d on sagittal view. Indeterminate 1.7 cm lesion at the inferior pole of the left kidney. Further evaluation with renal ul trasound is recommended to rule out neoplasm. Patchy airspace disease in bilateral lower lobes, most consistent with aspiration pneumonia, right-gr ryhuj-rlal-tiil. Small right pleural effusion. There is fluid filling the distal esophagus. Aspiration precautions are recommended.
[2025-02-01] MEDS: haloperidol lactate 5mg/ml inj IM PRN (20:29)
--- NOTE | 2025-02-01 20:32 | PROGRESS NOTE ---
Progress Note ID Providers to CC ~ Progress Note Progress Note: pt [id number]-kup-drh-no peritonitis/labs noted/ct reviewed a/p 1. sbo-needs repeat ct in am with oral contrast/mesenteric doppler DARLIN SALAZAR MD Feb 01, 2025 20:32
[2025-02-01] MEDS: diatr meglu/diatrizoate 30ml oral sol.-(3 dose) bottle PO SCH (21:43)
[2025-02-02] VITALS (32 sets, daily range): BP systolic 95–159; BP diastolic 60–91; PULSE 90–111; RESP 10–28; TEMP 97.3–98.6; O2SAT 90–100
--- NOTE | 2025-02-02 00:39 | RADIOLOGY REPORT ---
CHEST RADIOGRAPH Indication: NG Tube Placement Technique: Single frontal view of the chest was obtained COMPARISON: DI CHEST,SINGLE VIEW on DOS: 02/01/25, DI CHEST,SINGLE VIEW on DOS: 01/28/25, DI CHEST,SING LE VIEW on DOS: 01/27/25, DI CHEST,SINGLE VIEW on DOS: 01/26/25, DI CHEST,SINGLE VIEW on DOS: 03/04/24 FINDINGS: Lines and Tubes: Enteric catheter courses below the level of the diaphragm and terminates within the left upper quadrant, presumably within the gastric lumen. Lungs: Clear Pleura: No effusion. No pneumothorax. Cardiomediastinal contours: Unremarkable Bones: Unremarkable IMPRESSION: 1. No acute disease. 2. Enteric catheter as above.
[2025-02-02 06:07] LABS: MEAN PLATELET VOLUME 8.9 FL (7.4-10.4); RED CELL DISTRIBUTION WIDTH 14.3 % (11.5-14.5)
[2025-02-02 06:10] LABS: INR 1.1 INR
[2025-02-02 06:19] LABS: CREATININE 0.77 MG/DL (0.60-1.10); PHOSPHORUS 4.2 MG/DL (2.3-4.5); TOTAL CARBON DIOXIDE 25.3 MMOL/L (24-32); eCRCL 100 ML/MIN; eGFR > 90 ML/MIN
--- NOTE | 2025-02-02 09:43 | VASCULAR REPORT ---
INDICATION: Superior mesenteric artery stenosis TECHNIQUE: Multiple real-time sonographic images of the kidneys and bladder were obtained. Duplex Doppler evaluation including color Doppler and spectral/pulsed waveform analysis of the bilate ral renal arteries was performed. COMPARISON: None FINDINGS/IMPRESSION: Nonvisualization of the mesenteric artery secondary to shadowing from overlying bowel gas and stool.
[2025-02-02 10:53] LABS: MEAN PLATELET VOLUME 8.9 FL (7.4-10.4); RED CELL DISTRIBUTION WIDTH 14.2 % (11.5-14.5)
[2025-02-02 11:18] LABS: CREATININE 0.74 MG/DL (0.60-1.10); TOTAL CARBON DIOXIDE 26.7 MMOL/L (24-32); eCRCL 104 ML/MIN; eGFR > 90 ML/MIN
--- NOTE | 2025-02-02 11:22 | RADIOLOGY REPORT ---
Indication: sbo Technique: CT axial images of the abdomen and pelvis are obtained without contrast. Coronal and sagit tatiana reformats were obtained. Radiation Dose Information: CTDI volume is 19.8 mGy. Dose-length product is 1057 mGy*cm Comparison: CT CT ABDOMEN PELVIS W/ IV CONTRAST on DOS: 02/01/25 FINDINGS: There is limited interpretation of the abdomen and pelvis without administration of intravenous contr ast. The lung bases demonstrate small bilateral pleural effusions, xbwqn-wuwdeiw-urnr-left. Small pericard ial effusion. Cardiophrenic lymphm node measuring 9 mm. Bibasilar consolidation/tree-in-bud nodularity with atelectasis. Adrenal glands unremarkable shape. Spleen measures 14 cm AP. Pancreas unremarkable in shape. Hepatic calcification consistent with remote granulomatous disease. No CT evidence for cholelithiasi s. Contrast within the renal ureters from the previous examination. No significant hydronephrosis. Left renal cyst measuring 1 cm. Nasogastric tube terminating at the proximal stomach. Moderate gastric distention. There is abnormal dilatation of the small bowel loops up to approximately 5 cm with the majority of c ontrast remaining within the proximal small bowel. There is swirling of the mesentery in the right ab domen with narrowing of the small bowel caliber which access of the lead point for the small bowel ob struction. No contrast seen within the small bowel loops in the right mid to lower abdomen in this r egion, axial image 69 / 132 and coronal image 33/97. Colonic diverticular disease. Moderate volume stool in the colon. Normal appendix. Abdominal aortic atherosclerotic disease. Mesenteric edema. Small amount of ascites fluid within the abdomen pelvis, similar/slightly increase d from prior. No inguinal lymphadenopathy. Soft tissue edema / anasarca. Rppl-pg-lofenkrn thoracolumbar degenerative disc disease. Endplate sclerosis at L2-3. IMPRESSION: Limited evaluation without contrast. Persistent small bowel obstruction with transition point in the right mid to lower abdomen. There is associated swirling of the mesentery which could be secondary to an internal hernia acting as a lead point. Surgical consultation recommended for further management. Mesenteric edema and small amount of ascites fluid likely reactive secondary to the underlying small bowel obstruction, grossly similar to the previous examination. Small bilateral pleural effusions. Bibasilar airspace consolidation and tree-in-bud nodularity which can be secondary to pneumonia/atypi fadi infection, aspiration, bronchiolitis. Follow-up to resolution. Small pericardial effusion. Cardiophrenic lymphadenopathy. Other findings as described
--- NOTE | 2025-02-02 13:50 | PROGRESS NOTE ---
Progress Note ID Providers to CC ~ Progress Note Progress Note: ct with persistent sbo-pt needs ex lap/possible bowel resection/possible ilio- sma bypass-discussed procedure including risks/benefits/alternatives DARLIN SALAZAR MD Feb 02, 2025 13:50
--- NOTE | 2025-02-02 14:06 | PROGRESS NOTE- Residence ---
Progress Note - Resident Providers to CC Resident Creating Document: ELTON GILLILAND RES ~ Antibiotic Timeout Antibiotic Ordered?: No Subjective Patient was seen and examined at his bedside. Patient has continuous NG tube drainage, abdominal pain and has not had any bowel movement, but no signs of new GI bleeding. Patient is currently on NPO, was evaluated by Dr. Salinas for laparotomy today. No new events reported. Objective Vital Signs Date Time Temp Pulse Resp B/P (MAP) Pulse Ox O2 Delivery O2 Flow Rate FiO2 02/02/25 11:23 96 20 Nasal Cannula 3.0 02/02/25 11:11 90 32 02/02/25 11:00 97.4 130/77 (94) Result Diagram: 02/02/25 1030 02/02/25 1030 General: Awake and alert, on 3 L of supplemental oxygen, mild discomfort noted HEENT: Conjunctiva pink, Sclera clear, Mucus Membranes moist. Neck: Supple without masses and tenderness. Resp: Some gurgling sounds heard because of the secretions. Heart: Regular Rate and rhythm, normal S1 and S2 without murmur, rub or gallop. Abdomen: Abdomen distended, hypertympanic, mildly tender on palpation, no guarding or rigidity. Extremities: No cyanosis,clubbing ENGINE TESTER: Appeared awake and alert, no focal neurological deficits Coagulation Studies Laboratory Tests Test 02/02/25 05:27 Prothrombin Time 11.6 SECONDS (9.0-12.0) INR International Normalized Ratio 1.1 INR Coagulation Comments Plan Plan Assessment This is a 64-year-old male with a history of CAD s/p CABG about one year ago, PAD, alcohol abuse, hypertension came to the ER with a chief complaint of epigastric pain and vomitings, coffee-ground. Stool occult positive. Patient is admitted for acute upper GI bleed likely secondary to alcohol-induced gastritis. Hemoglobin is stable. Patient is scheduled for EGD tomorrow. Patient is on alcohol withdrawal protocol. Currently patient a slightly drowsy, there is a risk of aspiration. On 2nd day of admission patient developed acute exacerbation of COPD, currently on 2 L of oxygen. On methylprednisolone 20 mg b.i.d., completed five day course of ceftriaxone and azithromycin. On 30 of admission patient continued to be tachycardic, withdrawing from alcohol and went into SVT, was transferred to PCU. Currently in sinus tach. On metoprolol succinate 50 mg daily. Patient developed ileus, NG tube was placed which drained 1.2 L. abdominal x-ray showed small bowel distention 7.[address] with oral and IV contrast ordered. Consulted Dr. Salinas The patient is undergoing today laparotomy with possible bowel resection/ ilio- sma bypass Plan Possible Small-bowel ileus Patient had gastric distention today. Cause of ileus-patient had hypokalemia at the time of admission [place], Ativan discontinued. NG tube placed, drained 1.2 L of bilious fluid. Abdominal x-ray showed severely distended small bowel loops up to 7.[address] abdomen with oral and IV contrast started Consulted Dr. Salinas for further recommendations. 02/02/2025: Abdomen CT w/ contrast: Persistent small bowel obstruction with transition point in the right mid to lower abdomen. There is associated swirling of the mesentery which could be secondary to an internal hernia acting as a lead point. Surgical consultation recommended for further management. Mesenteric edema and small amount of ascites fluid likely reactive secondary to the underlying small bowel obstruction, grossly similar to the previous examination. Mesenteric US: Nonvisualization of the mesenteric artery secondary to shadowing from overlying bowel gas and stool. Dr. Salinas consulted, plan is laparotomy with possible bowel resection/ ilio- sma bypass Continue NG tube Continue hydration with lactated ringer 75 mL/hr Positive SIRS criteria Patient has sudden leukocytosis with tachycardia WBC increased from 15.6-26.8 Lactic acid normal, procalcitonin 0.62 Blood cultures show no growth after one day Leukocytosis could be secondary to combination of vomitings secondary to ileus and steroids Tachycardic could be secondary to ileus and dehydration On LR @ 125 mL/hour Started Zosyn. 02/02/2025 WBC 14.8, procalcitonin 0.62 Continue Zosyn day 2 lactated ringer 75 mL/hr Acute upper GI bleed Alcohol-induced gastritis stool occult positive Hemoglobin stable On pantoprazole 40 mg daily 02/01/[address] Muniz, possible EGD tomorrow 02/02/2025 EGD held because of SBO undergoing laparotomy Acute exacerbation of COPD Maintain oxygen saturation between 90-94%; on 2 L supplemental O2 via nasal canula Was given Solu-Medrol 125 mg, weaned to 20 b.i.d. Completed five day course of ceftriaxone and azithromycin. Discontinued DuoNeb p.r.n. Incentive spirometry. Supraventricular tachycardia - resolved Patient had a episode of SVT, one dose of IV metoprolol 5 mg given. Currently in sinus tach with heart rate ranging from 110-120, Currently on metoprolol succinate 50 mg daily Acute toxic/metabolic encephalopathy -improved Alcohol use disorder Alcohol withdrawal symptoms, CIWA score 18 On alcohol withdrawal protocol Continue thiamine and folic acid On 01/28/25 patient was on NPO because of risk of aspiration On 01/30/2025, passed swallow evaluation and was on soft diet On 02/01/2025, patient appears more drowsy likely secondary to ileus, on NG tube and NPO. Ativan and opiates discontinued On 02/02/2025, patient still somnolent, ativan and opiods discontinued Acute kidney injury, likely prerenal - resolved Creatinine 0.74 on 02/02/25 Improved with IV fluids. Mild hyponatremia, improved Metabolic alkalosis, improved likely secondary to N/V and dehydration-improved Fluids discontinued Monitor BMP Elevated transaminases-improved Likely liver injury 2/2 alcohol consumption Trending down. Hypertension Continue losartan and metoprolol CAD status post CABG Continue atorvastatin, and metoprolol Aspirin withheld due to GI bleeding, we will resume after discharge CHF with preserved ejection fraction, not in acute exacerbation Elevated proBNP; 1035 EF 60-65% on echo done in 2023, new echo LVEF is 55% Code status: Full code DVT prophylaxis: SCD GI prophylaxis; pantoprazole Diet: NPO Lines/tubes: Peripheral IV line, NG tube Status: Guarded Disposition: Continue medical treatment. Patient is undergoing laparotomy. Pending EGD after clinical improvement. Date of Service: Feb 02, 2025 Billing Provider: KHOA BHATT MD Common Visit Codes: [id number] INP/OBS CARE(HIGH) ELTON GILLILAND, [place] Feb 02, 2025 14:06 KHOA BHATT MD Feb 02, 2025 20:34
[2025-02-02] MEDS ORDERED: midazolam 1 mg/ML 2ml injection ONE (14:30)
[2025-02-02] MEDS ORDERED: fentaNYL/PF 50MCG/1 ML 2ML syringe ONE (14:30)
[2025-02-02] MEDS ORDERED: propofol inj 20 ML IV ONE (14:33)
[2025-02-02] MEDS ORDERED: LIDOcaine 2% (20mg/ml) 5ml vial ONE (14:33)
[2025-02-02] MEDS ORDERED: rocuronium 10mg/ml inj IV ONE ×2 (15:14→15:57)
[2025-02-02] MEDS ORDERED: dexamethasone sod phosphate 4mg/ml inj. ONE (15:27)
[2025-02-02] MEDS ORDERED: ondansetron/PF 4mg/2ml inj ONE (15:28)
[2025-02-02] MEDS ORDERED: albumin (Human) 5% 250ml 250 ML IV ONE (15:36)
--- NOTE | 2025-02-02 15:54 | PROGRESS NOTE ---
Anesthesia - Line Placement Line Placement CVP: Internal Jugular (Right) Arterial Line: Radial (Right radial very small due to PAD, RIGHT BRACHIAL PLACED WITH ULTRASOUND GUIDANCE.) Separate "Sticks": Ultrasound Guidance, Vasc Structure Identified, Patency Confirmed, Entry Observed by [place] Sterile Protocol or Technique: Sterile Seldinger tech, Full Sterile Protocol Prep: Chloraprep Complications None JASMYN GARDNER MD Feb 02, 2025 15:54
[2025-02-02] MEDS ORDERED: BUPIVACAINE liposomal/PF 13.3 MG/ML 10mL vial IM ONE (16:07)
[2025-02-02] MEDS ORDERED: BUPIVAcaine/PF 2.5mg/ml (0.25%) 10ml vial ONE (16:07)
[2025-02-02] MEDS ORDERED: meperidine/PF 25mg/ml syringe IV PRN ×3 (16:15)
[2025-02-02] MEDS ORDERED: labetalol 20mg/4ml (5mg/ml) syringe IV PRN (16:15)
[2025-02-02] MEDS ORDERED: morphine 4 MG/ML inj SYRINge IV PRN (16:15)
[2025-02-02] MEDS ORDERED: enalaprilat 1.25mg/ml 2ml vial IV PRN (16:15)
[2025-02-02] MEDS ORDERED: ondansetron/PF 4mg/2ml inj IV PRN ×2 (16:15→16:30)
[2025-02-02] MEDS ORDERED: ringers solution, lacted 1,000 ML IV SCH (16:15)
--- NOTE | 2025-02-02 16:20 | ANESTHESIA RECORDS ---
Nerve Block Providers to CC ~ Diagnosis: Nerve Block requested by: DARLIN SALAZAR MD Neuraxial/Peripheral Nerve Block requested for Post-operative analgesia by Physician above DIAGNOSIS: Post-operative pain. (Body Area) Shoulder: [ ] Arm: [ ] Hand: [ ] Hip: [ ] Knee: [ ] Ankle: [ ] Foot: [ ] Leg: [ ] Abdomen: [ Abdominal wall ] Other: [ ] Post-operative pain expected to be/is inadequately managed by oral or IV medicines. Regional anesthetic expected to facilitate rehabilitation and/or discharge from facility. Other:[ ] Time out Done?: Yes Time of Time out: 16:30 Procedure Details: PROCEDURE DETAILS: Risks, benefits and alternatives explained Informed consent obtained, and patient wishes to proceed Conscious sedation with indicated monitors Patient positioned, pertinent anatomy defined, sterile technique used Needle used: [ ] 3 1/8 inch Stimuplex Ultra 22ga [x ] 4 inch Stimuplex Ultra 20ga [ ] 6 inch Stimuplex Ultra 20ga [ ] 6 inch, Quikbloc over the needle catheter set 20ga [ ] 4 inch Quikbloc over the needle catheter set 20ga [ ]Other: [ ] Loss of twitch @ [____N/A____]mA [x ] Single Injection [ ] Catheter Ultrasound Guidance Used: [x ] Yes [ ] No Attempts:[ Once ] Medicines injected: [ ]Clonidine Amt:[ ] [ ]Dexamethasone Amt:[ ] [ ]Ropivacaine Amt:[ ] [x ]Bupivacaine Amt:[ 0.25% 30 cc ] [ ]Lidocaine Amt:[ ] [x]Exparel 1.33%:[___20 ml ] [ ]Epinephrine Amt[ ] [ ]Other: [ ] Intermittent aspiration during local anesthetic administration No symptoms of intraneural or intravenous injection Patient tolerated procedure well Comments 4 Point TAP Block: Pt supine. Block performed under General anesthesia. Ultrasound probe is placed transverse to the abdominal wall between the costal margin and iliac crest. All the layers of abdominal muscle is identified. The block needle was advanced and entered in the plane between Internal oblique and Tranversus abdominus. 2 cc of Saline is injected which showed good spread, t hen 15 c of local anesthetic injected on each side. Good spread of local anesthetic noted. Similarly Bilateral Subcostal TAP block was performed using 15 cc of local anesthetic mixture on each side using ultrasound guidance in between rectus abdominus muscle and Transversus abdominus muscle. Good spread of local anesthetic noted in TAP plane noted. SAMIR VAZQUEZ MD Feb 02, 2025 16:20
--- NOTE | 2025-02-02 16:27 | OPERATIVE REPORT ---
Operative Report Providers to CC ~ Date of Procedure: Feb 02, 2025 Pre-Operative Diagnosis: sbo Post-Operative Diagnosis SAME as PRE-Op Procedure Performed ex lap/alayna Surgeon: amelia ryder Anesthesiologist: Maciel Anguiano Type of Anesthesia: General Findings: adhesions Estimated Blood Loss: min Specimen Removed: culture DARLIN SALAZAR MD Feb 02, 2025 16:27
[2025-02-02] MEDS ORDERED: glycopyrrolate 0.2mg/ml inj ONE (16:45)
[2025-02-02] MEDS ORDERED: BUPIVAcaine/PF 7.5mg/ml (0.75%) 10ml vial ONE (16:47)
[2025-02-02] MEDS: BUPIVAcaine/PF 2.5mg/ml (0.25%) 10ml vial IJ ONE (17:18)
[2025-02-02] MEDS: HYDROmorphone inj. 0.5 MG/0.5 ML DISP.SYRIN IV PRN (17:45)
--- NOTE | 2025-02-02 18:01 | RADIOLOGY REPORT ---
CHEST RADIOGRAPH Indication: central line placement Technique: Single frontal view of the chest was obtained Comparison: DI CHEST,SINGLE VIEW on DOS: 02/02/25, DI CHEST,SINGLE VIEW on DOS: 02/01/25, DI CHEST,SING LE VIEW on DOS: 01/28/25 FINDINGS: Lines and Tubes: Enteric tubes in satisfactory position. Right IJ approach central venous catheter is in satisfactory position. Lungs: No focal consolidation. Pleura: No effusion. No pneumothorax. Cardiomediastinal contours: Unremarkable Bones: No acute osseous abnormality. Postsurgical changes of the thoracic cage. IMPRESSION: No acute cardiopulmonary disease. Enteric tube and right IJ approach central venous catheters in satisfactory position.
--- NOTE | 2025-02-02 18:13 | CONSULTATION ---
DATE OF CONSULTATION: 02/02/2025 DICTATING PHYSICIAN: Chi Salinas MD REASON FOR CONSULTATION: Evaluation of abdominal pain. HISTORY OF PRESENT ILLNESS: The patient is a 64-year-old male with extensive peripheral vascular disease, coronary artery disease, hypertension, and alcohol abuse who was admitted with an upper GI bleed noted by hematemesis. An NG tube placed, a GI consult was ultimately obtained. A CAT scan revealed small bowel dilatation, consistent with small bowel obstruction. Surgical evaluation now requested. On further questioning, the patient has some mild abdominal discomfort and is somewhat confused. Last BM unknown. PAST MEDICAL HISTORY: Hypertension, hyperlipidemia, peripheral vascular disease, coronary artery disease. PAST SURGICAL HISTORY: Previous CABG. HOME MEDICATIONS: Include metoprolol, aspirin, atorvastatin, and losartan. ALLERGIES: None. SOCIAL HISTORY: Extensive history of alcohol use, tobacco use, methamphetamine use, and a little bit of cocaine to go along with it. REVIEW OF SYSTEMS: See H and P. PHYSICAL EXAMINATION: GENERAL: Well-nourished male, who appears his stated age. VITAL SIGNS: Unremarkable. HEART: Regular rate and rhythm. LUNGS: Clear to auscultation. ABDOMEN: Mild distention and mild tenderness. No [place] peritonitis. EXTREMITIES: Unremarkable. NEUROLOGIC: Nonfocal. LABORATORY DATA: Include a WBC of 26, hematocrit of 41, platelet count 247. Chemistries include BUN and creatinine of 18 and 0.79, CO2 is 22, lactic 1.8. LFTs notable for a total bilirubin of 0.7. IMAGING STUDIES: CT abdomen and pelvis confirms ____ dilatation, probable transition point distal ileum. There is extensive calcification of the abdominal aorta with extensive stenosis of the SMA, probable occlusion of the OSCAR. IMPRESSION: * Small bowel obstruction, no signs of peritonitis. No previous abdominal surgery. * Leukocytosis, question etiology. * History of recent upper GI bleed. * Hypertension. * Hyperlipidemia. * Coronary artery disease. RECOMMENDATIONS: * Repeat CT with oral contrast overnight prep ____ any progression or regression of his SBO. * Supportive care. Chi Salinas MD TID: [id number] RECEIPT: [id number] LORRAINE/INGE/BIBIANA
[2025-02-03] VITALS (32 sets, daily range): BP systolic 115–159; BP diastolic 66–86; PULSE 10–103; RESP 10–24; TEMP 98.1–98.2; O2SAT 94–98
[2025-02-03] MEDS: piperacillin/tazo 3.375gm/50ml 50 ML IV SCH (02:16)
[2025-02-03 02:35] LABS: MEAN PLATELET VOLUME 8.3 FL (7.4-10.4); RED CELL DISTRIBUTION WIDTH 13.7 % (11.5-14.5)
[2025-02-03 02:45] LABS: INR 1.1 INR
[2025-02-03 02:49] LABS: CREATININE 0.57 MG/DL (0.60-1.10); PHOSPHORUS 2.4 MG/DL (2.3-4.5); TOTAL CARBON DIOXIDE 26.8 MMOL/L (24-32); eCRCL 135 ML/MIN; eGFR > 90 ML/MIN
--- NOTE | 2025-02-03 11:51 | PROGRESS NOTE ---
Progress Note Dictate Providers to CC CC: LOR IBARRA MD ~ Progress Note: Subsequent surgical care on a 64-year-old gentleman who is postoperative day 1, status post exploratory laparotomy with lysis of adhesions for small-bowel obstruction Covering for Dr. Chi Salinas over the weekend Patient extubated and in the intensive care unit He has a strong alcoholism history All medical and intensive care management by the hospitalist and detonator maker No acute surgical issues Nasogastric tube remains in place Denies any passage of flatus Abdomen soft and nondistended Incision dressed and dry TPN per operating surgeon Medical management per detonator maker/hospitalist service No acute surgical issues Anticipate restarting oral nutrition in the next 24-48 hours Antibiotic Ordered?: Yes Objective Vitals Vital Signs Date Time Temp Pulse Resp B/P (MAP) Pulse Ox O2 Delivery O2 Flow Rate FiO2 02/03/25 11:30 98 20 Nasal Cannula 1.0 02/03/25 11:23 95 24 02/03/25 08:00 98.1 126/68 (87) 129/66 (87) Lab Results: 02/03/25 0210 02/03/25 0210 Coagulation Studies Laboratory Tests Test 02/03/25 02:10 Prothrombin Time 11.5 SECONDS (9.0-12.0) INR International Normalized Ratio 1.1 INR Coagulation Comments LOR IBARRA MD Feb 03, 2025 11:51
[2025-02-03] MEDS ORDERED: magnesium sulf-water 4G/100mL 100 ML IV PRN (13:25)
[2025-02-03] MEDS ORDERED: magnesium Cl slow-release 64mg tablet PO PRN (13:25)
[2025-02-03] MEDS ORDERED: sodium phosphate inj. 30 MMOL in dextrose 5%-water 250 ML IV PRN (13:25)
[2025-02-03] MEDS ORDERED: potassium Cl 20 mEq SR tablet PO PRN (13:25)
[2025-02-03] MEDS: K, MAG and/or Phos replacement - Verify level? MC SCH (13:25)
[2025-02-03] MEDS ORDERED: potassium Cl 40MEQ/270ML bag 270 ML IV PRN (13:25)
[2025-02-03] MEDS ORDERED: potassium Cl 40MEQ/1/2NS 520ml 520 ML IV PRN (13:25)
[2025-02-03] MEDS ORDERED: magnesium sulf-water 2g/50mL 50 ML IV PRN (13:25)
[2025-02-03] MEDS ORDERED: mag hydrox/Alum hydrox/simeth 30ml oral suspension PO PRN (13:30)
--- NOTE | 2025-02-03 16:33 | PROGRESS NOTE- Residence ---
Progress Note - Resident Providers to CC Resident Creating Document: [facility] RES ~ Antibiotic Timeout Antibiotic Ordered?: Yes Subjective Patient was seen and examined in the ICU. s/p exploratory laparotomy with lysis of adhesions by Dr. Salinas on 02/02/2025. Patient has continuous NG tube drainage. Did not pass flatus yet. Patient is currently on TPN. Anticipated oral nutrition we will be restarted in 24-48 hours. Objective Vital Signs Date Time Temp Pulse Resp B/P (MAP) Pulse Ox O2 Delivery O2 Flow Rate FiO2 02/03/25 16:01 98 24 96 Room Air* 0 21 02/03/25 16:00 99.0 144/77 (99) Result Diagram: 02/03/25 0210 02/03/25 0210 General: Awake and alert, on 2 L of supplemental oxygen. HEENT: Conjunctiva pink, Sclera clear, Mucus Membranes moist. Neck: Supple without masses and tenderness. Resp: Some gurgling sounds heard because of the secretions. Heart: Regular Rate and rhythm, normal S1 and S2 without murmur, rub or gallop. Abdomen: No signs of infection at the surgical site. Wound dressing noted, has an NG tube in at drainage tube. 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 Stool occult positive. Patient is admitted for acute upper GI bleed likely secondary to alcohol-induced gastritis. Hemoglobin is stable. Patient is on alcohol withdrawal protocol. On 2nd day of admission patient developed acute exacerbation of COPD, currently on 2 L of oxygen. On methylprednisolone 20 mg b.i.d., completed five day course of ceftriaxone and azithromycin. On day three of admission patient continued to be tachycardic, withdrawing from alcohol and went into SVT, was transferred to PCU. Currently in sinus tach. On metoprolol succinate 50 mg daily. Patient developed SBO, NG tube was placed which drained 1.2 L. abdominal x-ray showed small bowel distention 7.[address] with oral and IV contrast showed small bowel obstruction with transition point in the right mid to lower abdomen. Dr. Jackson at performed laparotomy with lysis of additions on 02/03/2025. Currently on TPN, oral feeding will be started in 24-48 hours. Plan Small-bowel obstruction s/p laparotomy and lysis of adhesions 02/01/2025-abdomen was distended, NG tube placed, drained 1.2 L of bilious fluid. Abdominal x-ray showed severely distended small bowel loops up to 7.[address] abdomen with oral and IV contrast showed SBO with transition point in the right mid to lower abdomen. Mesenteric ultrasound showed nonvisualization of the mesenteric artery secondary to shadowing. Dr. Jackson at performed laparotomy and lysis of additions on 02/02/2025 Currently on NG tube, drainage tube. Currently on TPN, oral feeding will be restarted in 24-48 hours. On dextrose/LR@ 125 mL/hour On Zosyn day3 Positive SIRS criteria WBC trending down Blood cultures show no growth after two days On dextrose/ LR @ 125 mL/hour Started Zosyn day three Acute upper GI bleed Alcohol-induced gastritis stool occult positive Hemoglobin stable On pantoprazole 40 mg daily 02/01/[address] Muniz, pending EGD because of his SBO Acute exacerbation of COPD Maintain oxygen saturation between 90-94%; on 2 L supplemental O2 via nasal canula Was given Solu-Medrol 125 mg, weaned to 20 b.i.d. Completed five day course of ceftriaxone and azithromycin. Discontinued DuoNeb p.r.n. Incentive spirometry. Supraventricular tachycardia - resolved Patient had a episode of SVT, one dose of IV metoprolol 5 mg given. Currently in sinus tach with heart rate ranging from 110-120, Currently on metoprolol succinate 50 mg daily Acute toxic/metabolic encephalopathy -improved Alcohol use disorder Alcohol withdrawal symptoms, CIWA score 18 On alcohol withdrawal protocol Continue thiamine and folic acid On 01/28/25 patient was on NPO because of risk of aspiration On 01/30/2025, passed swallow evaluation and was on soft diet On 02/01/2025, patient appears more drowsy likely secondary to ileus, on NG tube and NPO. Ativan and opiates discontinued On 02/02/2025, patient still somnolent, ativan and opiods discontinued 02/03/2025-patient is awake alert Acute kidney injury, likely prerenal - resolved Creatinine 0.74 on 02/02/25 Improved with IV fluids. Mild hyponatremia, improved Metabolic alkalosis, improved likely secondary to N/V and dehydration-improved Fluids discontinued Monitor BMP Elevated transaminases-improved Likely liver injury 2/2 alcohol consumption Trending down. Hypertension Continue losartan and metoprolol-hold for NPO status CAD status post CABG Aspirin withheld due to GI bleeding, we will resume after discharge Atorvastatin and metoprolol-on hold because of NPO status CHF with preserved ejection fraction, not in acute exacerbation Elevated proBNP; 1035 EF 60-65% on echo done in 2023, new echo LVEF is 55% Code status: Full code DVT prophylaxis: SCD GI prophylaxis; pantoprazole Diet: NPO, TPN Lines/tubes: Peripheral IV line, NG tube, drainage tube Status: Guarded Disposition: Continue medical treatment. Status post laparotomy and lysis of adhesions. Date of Service: Feb 03, 2025 Billing Provider: KHOA BHATT MD Common Visit Codes: [id number] INP/OBS CARE(HIGH) [facility] [place], RES Feb 03, 2025 16:33 KHOA BHATT MD Feb 03, 2025 21:21
[2025-02-03 16:57] LABS: CREATININE 0.58 MG/DL (0.60-1.10); PHOSPHORUS 1.7 MG/DL (2.3-4.5); TOTAL CARBON DIOXIDE 26.3 MMOL/L (24-32); eCRCL 132 ML/MIN; eGFR > 90 ML/MIN
[2025-02-03] MEDS: FAT EMUL/SOY/MCT/OLIV/FISH OIL 100 ML IV SCH (20:34)
[2025-02-03] MEDS: chromic chloride inj. 10 MCG, ZINC/COPPER/MANGANESE/SELENIUM 1 ML in AA 5%/CALCIUM/LYTE... IV SCH (20:34)
[2025-02-04] VITALS (33 sets, daily range): BP systolic 123–173; BP diastolic 66–102; PULSE 90–110; RESP 11–26; TEMP 96.3–98.4; O2SAT 93–98
--- NOTE | 2025-02-04 00:07 | OPERATIVE REPORT ---
DATE OF SURGERY: 02/02/2025 DICTATING PHYSICIAN: Chi Salinas MD PREOPERATIVE DIAGNOSIS: Small bowel obstruction. POSTOPERATIVE DIAGNOSIS: Small bowel obstruction. PROCEDURES PERFORMED: * Exploratory laparotomy. * Lysis of adhesions. SURGEON: Chi Salinas MD ANESTHESIA: General/Dr. Anguiano. DRAINS: None. INDICATIONS FOR OPERATION: A 64-year-old male upper GI bleed, developed subsequent bowel obstruction in the course of his admission. Followup scan revealed no improvement. The patient was taken to surgery for laparotomy. INTRAOPERATIVE FINDINGS: The patient had adhesions in the right lower quadrant resulting in small bowel obstruction. DESCRIPTION OF PROCEDURE: The patient was placed supine on the operating room. After induction of general anesthesia and placement of endotracheal tube, abdomen was prepped and draped. Abdomen was entered through midline incision. Abdomen was subsequently explored. The patient had multiple loops of dilated small bowel. The patient had decompressed small bowel distally at the terminal ileum. NG tube. Enterotomy was closed with TA-30 stapler. The patient had adhesions in the right lower quadrant, resulting in small bowel obstruction. Adhesions were subsequently taken down. This allowed free passage of bowel contents into the cecum. Small bowel was then run through the Treitz to the ileocecal valve. was unremarkable. Cultures were obtained. Perirectal fascia was closed with running sutures of looped PDS. Skin was closed with clips. Dressings applied. The patient was transferred to recovery in stable condition. Chi Salinas MD TID: [id number] RECEIPT: [id number] LORRAINE/INGE/JAIRO
[2025-02-04 02:13] LABS: MEAN PLATELET VOLUME 8.1 FL (7.4-10.4); RED CELL DISTRIBUTION WIDTH 14.0 % (11.5-14.5)
[2025-02-04 02:14] LABS: INR 1.2 INR
[2025-02-04 02:18] LABS: CREATININE 0.59 MG/DL (0.60-1.10); PHOSPHORUS 1.9 MG/DL (2.3-4.5); TOTAL CARBON DIOXIDE 27.5 MMOL/L (24-32); eCRCL 130 ML/MIN; eGFR > 90 ML/MIN
[2025-02-04] MEDS: potassium Cl 20mEq/100mL bag 100 ML IV SCH (03:01)
[2025-02-04] MEDS: sodium phosphate in D5W IVPB 250 ML IV ONE (04:00)
[2025-02-04] MEDS: sodium phosphate inj. 15 MMOL in dextrose 5%-water 250 ML IV PRN (04:00)
--- NOTE | 2025-02-04 09:12 | PROGRESS NOTE ---
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 Minimal output from the nasogastric tube but remains bilious Patient denies any passage of flatus Incision clean, dry, and intact Abdomen softly distended Continue nasogastric tube May have sips and ice chips No surgical reason to be in the intensive care unit but we will defer to hospitalist/radiation officer service regarding transfer location NG tube DC when return of bowel function Antibiotic Ordered?: N/A Objective Vitals Vital Signs Date Time Temp Pulse Resp B/P (MAP) Pulse Ox O2 Delivery O2 Flow Rate FiO2 02/04/25 09:00 98.6 99 19 153/83 (106) 97 Room Air 02/04/25 08:00 0.0 02/04/25 07:53 24 Lab Results: 02/04/25 0144 02/04/25 0144 Coagulation Studies Laboratory Tests Test 02/04/25 01:44 Prothrombin Time 12.0 SECONDS (9.0-12.0) INR International Normalized Ratio 1.2 INR Coagulation Comments LOR IBARRA MD Feb 04, 2025 09:12
[2025-02-04] MEDS: metoprolol tartrate 1mg/ml inj IV ONE ×3 (09:58→16:30)
[2025-02-04] MEDS ORDERED: hydrALAZINE 20mg/ml inj. IV PRN (18:05)
--- NOTE | 2025-02-04 19:39 | PROGRESS NOTE- Residence ---
Progress Note - Resident Providers to CC Resident Creating Document: [facility] RES ~ Antibiotic Timeout Antibiotic Ordered?: Yes Subjective Patient was seen and examined in the ICU. s/p exploratory laparotomy with lysis of adhesions by Dr. Salinas on 02/02/2025. Patient has continuous NG tube drainage. Patient is currently on TPN. He will be transferred to PCU today. Objective Vital Signs Date Time Temp Pulse Resp B/P (MAP) Pulse Ox O2 Delivery O2 Flow Rate FiO2 02/04/25 19:25 102 20 Room Air 0.0 02/04/25 19:18 93 21 02/04/25 15:50 96.3 173/102 (125) Result Diagram: 02/04/25 0144 02/04/25 0144 General: Awake and alert, on 2 L of supplemental oxygen. HEENT: Conjunctiva pink, Sclera clear, Mucus Membranes moist. Neck: Supple without masses and tenderness. Resp: Some gurgling sounds heard because of the secretions. Heart: Regular Rate and rhythm, normal S1 and S2 without murmur, rub or gallop. Abdomen: No signs of infection at the surgical site. Wound dressing noted, has an NG tube in at drainage tube. 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 Stool occult positive. Patient is admitted for acute upper GI bleed likely secondary to alcohol-induced gastritis. Hemoglobin is stable. Patient is on alcohol withdrawal protocol. On 2nd day of admission patient developed acute exacerbation of COPD, currently on 2 L of oxygen. On methylprednisolone 20 mg b.i.d., completed five day course of ceftriaxone and azithromycin. On day three of admission patient continued to be tachycardic, withdrawing from alcohol and went into SVT, was transferred to PCU. Currently in sinus tach. On metoprolol succinate 50 mg daily. Patient developed SBO, NG tube was placed which drained 1.2 L. abdominal x-ray showed small bowel distention 7.[address] with oral and IV contrast showed small bowel obstruction with transition point in the right mid to lower abdomen. Dr. Jackson at performed laparotomy with lysis of additions on 02/03/2025. Currently on TPN, oral feeding will be started in 24-48 hours. Plan Small-bowel obstruction s/p laparotomy and lysis of adhesions 02/01/2025-abdomen was distended, NG tube placed, drained 1.2 L of bilious fluid. Abdominal x-ray showed severely distended small bowel loops up to 7.[address] abdomen with oral and IV contrast showed SBO with transition point in the right mid to lower abdomen. Mesenteric ultrasound showed nonvisualization of the mesenteric artery secondary to shadowing. Dr. Manuel borja performed laparotomy and lysis of additions on 02/02/2025 Currently on NG tube, drainage tube. Currently on TPN, oral feeding will be restarted in 24-48 hours. dextrose/LR@ 125 mL/hour discontinued as he is on TPN. On Zosyn day4 Positive SIRS criteria WBC trending down Blood cultures show no growth after two days Started Zosyn day 4 Acute upper GI bleed Alcohol-induced gastritis stool occult positive Hemoglobin stable On pantoprazole [address] Muniz, pending EGD because of his SBO Acute exacerbation of COPD Maintain oxygen saturation between 90-94%; on 2 L supplemental O2 via nasal canula Was given Solu-Medrol 125 mg, weaned to 20 b.i.d. Completed five day course of ceftriaxone and azithromycin. Discontinued DuoNeb p.r.n. Incentive spirometry. Supraventricular tachycardia - resolved Patient had a episode of SVT, one dose of IV metoprolol 5 mg given. Currently in sinus tach with heart rate ranging from 110-120, Currently on metoprolol succinate 50 mg daily 02/04/2025-patient continues to be in SVT, IV metoprolol q.6 p.r.n. for heart rate> 120 as the patient is on NPO. Acute toxic/metabolic encephalopathy -improved Alcohol use disorder Alcohol withdrawal symptoms, CIWA score 18 On alcohol withdrawal protocol Continue thiamine and folic acid On 01/28/25 patient was on NPO because of risk of aspiration On 01/30/2025, passed swallow evaluation and was on soft diet On 02/01/2025, patient appears more drowsy likely secondary to ileus, on NG tube and NPO. Ativan and opiates discontinued On 02/02/2025, patient still somnolent, ativan and opiods discontinued 02/04/2025-awake and alert. Acute kidney injury, likely prerenal - resolved Creatinine 0.74 on 02/02/25 Improved with IV fluids. Mild hyponatremia, improved Metabolic alkalosis, improved likely secondary to N/V and dehydration-improved Fluids discontinued Monitor BMP Elevated transaminases-improved Likely liver injury 2/2 alcohol consumption Trending down. Hypertension Continue losartan and metoprolol-hold for NPO status CAD status post CABG Aspirin withheld due to GI bleeding, we will resume after discharge Atorvastatin and metoprolol-on hold because of NPO status CHF with preserved ejection fraction, not in acute exacerbation Elevated proBNP; 1035 EF 60-65% on echo done in 2023, new echo LVEF is 55% Code status: Full code DVT prophylaxis: SCD GI prophylaxis; pantoprazole Diet: NPO, TPN Lines/tubes: Peripheral IV line, NG tube, drainage tube Status: Guarded Disposition: Continue medical treatment. Status post laparotomy and lysis of adhesions. Raymond Cleveland M.D PGY2 Date of Service: Feb 04, 2025 Billing Provider: KHOA BHATT MD Common Visit Codes: [id number] INP/OBS CARE(HIGH) [facility] [place], RES Feb 04, 2025 19:39 KHOA BHATT MD Feb 04, 2025 22:39
[2025-02-05] VITALS (22 sets, daily range): BP systolic 135–157; BP diastolic 79–97; PULSE 85–106; RESP 16–23; TEMP 97.1–98.1; O2SAT 94–98
[2025-02-05 06:40] LABS: MEAN PLATELET VOLUME 7.7 FL (7.4-10.4); RED CELL DISTRIBUTION WIDTH 13.9 % (11.5-14.5)
[2025-02-05 07:01] LABS: CREATININE 0.51 MG/DL (0.60-1.10); TOTAL CARBON DIOXIDE 25.3 MMOL/L (24-32); eCRCL 151 ML/MIN; eGFR > 90 ML/MIN
[2025-02-05] MEDS: potassium Cl 40MEQ/1/2NS 520ml 520 ML IV PRN (09:12)
--- NOTE | 2025-02-05 14:53 | PROGRESS NOTE- Residence ---
Progress Note - Resident Providers to CC Resident Creating Document: ARJUN BAI, RES ~ Antibiotic Timeout Antibiotic Ordered?: Yes Subjective The patient has been evaluated at the bedside. The patient is currently pain controlled with pain medication, he states that his pain medication is working well. Patient currently denies any bowel movements or releasing gases. Objective Vital Signs Date Time Temp Pulse Resp B/P (MAP) Pulse Ox O2 Delivery O2 Flow Rate FiO2 02/05/25 14:33 16 02/05/25 11:20 102 Room Air 0.0 02/05/25 11:15 95 21 02/05/25 11:10 97.9 157/97 (117) Physical exam: General: Well alert, well oriented, not confused, not agitated, not in acute distress, well cooperated during the physical. HEENT: Conjunctive are pink, sclerae clear, no icterus, pupil is equal in both sides, reactive to light, no ear discharge, no pharyngeal erythema or an edema, presence of NG tube draining some greenish fluid. Neck: Supple, no JVD, no lymphadenopathy and thyromegaly. Chest: Equal air entry on both lungs, no additional sounds no rhonchi no wheezing at the moment. Cardiovascular: S1-S2 regular sinus rhythm and, regular rate, no gallops, no rubs, no murmurs Abdomen: No visible peristalsis, Bowel sounds diminished on auscultation, soft, nontender, no guarding, no rigidity, clean one dressing noted. Extremities: No obvious deformities, no pitting edema bilaterally, capillary refill intact, peripheral pulsations are intact on both sides Central Nervous System: No focal neurological deficits, no motor or sensory weakness in all 4 extremities, could move all 4 extremities, 2+ deep tendon reflexes, negative Babinski. Musculoskeletal: No joint swelling, deformities, inflammations, and no scoliosis and back tenderness Skin: Warm and dry. Result Diagram: 02/05/25 0608 02/05/25 0608 Coagulation Studies Laboratory Tests Test 02/04/25 01:44 Prothrombin Time 12.0 SECONDS (9.0-12.0) INR International Normalized Ratio 1.2 INR Coagulation Comments Assessment Assessment 64-year-old male patient came to the hospital with chief complaint of epigastric pain and coffee-ground emesis. Stool occult was positive. The patient was admitted for acute upper GI bleeding likely secondary to alcohol-induced gastritis. Plan Plan Small-bowel obstruction s/p laparotomy and lysis of adhesions on 02/02/2025: 02/01/2025-abdomen was distended, NG tube placed, drained 1.2 L of bilious fluid. Abdominal x-ray showed severely distended small bowel loops up to 7.[address] abdomen with oral and IV contrast showed SBO with transition point in the right mid to lower abdomen. Mesenteric ultrasound showed nonvisualization of the mesenteric artery secondary to shadowing. Dr. Jackson at performed laparotomy and lysis of additions on 02/02/2025 Currently on NG tube, drainage tube. Currently on TPN, oral feeding will be restarted in 24-48 hours. dextrose/LR@ 125 mL/hour discontinued as he is on TPN. On Zosyn day 4. 02/05/2025: On Zosyn t.i.d. day 5. Dr. Hopkins following the patient. Still recommends NG tube. May have sips and ice chips. Positive SIRS criteria Sirs criteria: (HR>90, WBC>12) WBC trending down Blood cultures show no growth after two days Started Zosyn day 4 Acute upper GI bleed Alcohol-induced gastritis Stool occult positive Hemoglobin stable On pantoprazole [address] Muniz, pending EGD because of his SBO. 02/05/2025: Hemoglobin and hematocrit stable. Keep monitoring hemogram. Transfuse if hemoglobin levels dropped below seven. Pantoprazole 40 mg IV b.i.d. Acute exacerbation of COPD Maintain oxygen saturation between 90-94%. Completed five day course of ceftriaxone and azithromycin. Discontinued DuoNeb q.2h p.r.n. DuoNeb q.4h PRN. Incentive spirometry. Methylprednisolone 20 mg b.i.d. Supraventricular tachycardia - resolved Patient had a episode of SVT, one dose of IV metoprolol 5 mg given. Currently in sinus tach with heart rate ranging from 110-120, Currently on metoprolol succinate 50 mg daily 02/04/2025-patient continues to be in SVT, IV metoprolol q.6 p.r.n. for heart rate> 120 as the patient is on NPO. 02/05/2025: Current heart rate around 102. Metoprolol tartrate 50 mg b.i.d. started due to inability to crash metoprolol succinate. Acute toxic/metabolic encephalopathy -improved Alcohol use disorder Alcohol withdrawal symptoms, CIWA score 18 On alcohol withdrawal protocol On 01/28/25 patient was on NPO because of risk of aspiration On 01/30/2025, passed swallow evaluation and was on soft diet On 02/01/2025, patient appears more drowsy likely secondary to ileus, on NG tube and NPO. Ativan and opiates discontinued On 02/02/2025, patient still somnolent, ativan and opiods discontinued 02/04/2025-awake and alert. 02/05/2025: Continue thiamine and folic acid daily. Patient currently does not need Ativan or haloperidol. Acute kidney injury, likely prerenal - resolved Current creatinine levels within reference range. GFR>90 Mild hyponatremia: Metabolic alkalosis, improved likely secondary to N/V and dehydration-improved Fluids discontinued Monitor BMP Elevated transaminases-improved Likely liver injury 2/2 alcohol consumption Trending down. Hypertension Metoprolol tartrate 50 mg b.i.d.. Clonidine 0.4 mg q.4h as needed. Hydralazine 10 mg q.6h PRN for high blood pressure. CAD status post CABG Aspirin withheld due to GI bleeding, we will resume after discharge Atorvastatin and metoprolol-on hold because of NPO status Chronic diastolic congestive heart failure with preserved ejection fraction, not in acute exacerbation Elevated proBNP; 1035 EF 60-65% on echo done in 2023, new echo LVEF is 55% Code status: Full code DVT prophylaxis: SCD Pain control: Acetaminophen, Dilaudid GI prophylaxis: Protonix 40 mg IV b.i.d. Diet: NPO, TPN Lines/tubes: Peripheral IV line, NG tube, drainage tube Status: Guarded PT: Recommends post-acute care. Disposition: Continue medical management. Dr. Hopkins is following the patient. Discharge plan will be post-acute care when medically stable. Arjun Hartman Internal Medicine Resident [facility] Date of Service: Feb 05, 2025 Billing Provider: KHOA BHATT MD Common Visit Codes: [id number] INP/OBS CARE(HIGH) ARJUN BAI, RES Feb 05, 2025 14:53 KHOA BHATT MD Feb 05, 2025 20:47
--- NOTE | 2025-02-05 17:43 | PROGRESS NOTE ---
Progress Note ID Providers to CC ~ Progress Note Progress Note: pain improving-no flatus/vss/abd distended/labs noted a/p 1. s/p alayna-persistent ileus/repeat ct DARLIN SALAZAR MD Feb 05, 2025 17:43
[2025-02-05] MEDS: diatr meglu/diatrizoate 30ml oral sol.-(3 dose) bottle PO SCH (20:38)
[2025-02-06] VITALS (20 sets, daily range): BP systolic 127–145; BP diastolic 54–88; PULSE 87–120; RESP 11–22; TEMP 97.2–98; O2SAT 94–99
[2025-02-06 03:58] LABS: MEAN PLATELET VOLUME 7.9 FL (7.4-10.4); RED CELL DISTRIBUTION WIDTH 13.9 % (11.5-14.5)
[2025-02-06 04:11] LABS: INR 1.1 INR
[2025-02-06 04:22] LABS: CREATININE 0.47 MG/DL (0.60-1.10); PHOSPHORUS 2.4 MG/DL (2.3-4.5); TOTAL CARBON DIOXIDE 24.5 MMOL/L (24-32); eCRCL 164 ML/MIN; eGFR > 90 ML/MIN
[2025-02-06] MEDS: normal saline 1000ml 1,000 ML IV SCH (07:40)
[2025-02-06 07:59] LABS: OSMOLALITY 272 MOSM/K (280-300)
[2025-02-06] MEDS: MVI, adult No.4 with vit. K 10 ML in dextrose 5% water 500ml 500 ML IV SCH (08:54)
[2025-02-06] MEDS: methylPREDNISolone sod succ/PF 40mg inj. IV SCH (08:56)
[2025-02-06 10:03] LABS: OSMOLALITY UA 477 MOSM/K (50-1400)
--- NOTE | 2025-02-06 11:08 | RADIOLOGY REPORT ---
Exam: CT CT ABDOMEN PELVIS W/ ORAL CONTRAST History: ileus Comparison Study: CT CT ABDOMEN PELVIS W/ ORAL CONTRAST on DOS: 02/02/25, CT CT ABDOMEN PELVIS W/ IV C ONTRAST on DOS: 02/01/25 TECHNIQUE: Multidetector CT of the abdomen and pelvis was performed from lung bases to pubic symphysi s. Imaging was performed without IV contrast. Axial, coronal, and sagittal multiplanar reformats were obtained from the axial data set by the technologist. Findings: Soft tissues: Unremarkable Impression: 1. No acute abdominopelvic abnormalities.
--- NOTE | 2025-02-06 13:38 | PROGRESS NOTE ---
Progress Note ID Providers to CC ~ Progress Note Progress Note: minimal pain-+ flatus/vss/abd-nondistended/labs noted/ct reviewed a/p 1. s/p alayna-slow progress/ct worrisome for ischemic bowel-pt needs sma stent- scheduled for DARLIN SALAZAR MD Feb 06, 2025 13:38
[2025-02-06] MEDS: metoprolol tartrate 1mg/ml inj IV PRN (14:17)
--- NOTE | 2025-02-06 15:44 | PROGRESS NOTE- Residence ---
Progress Note - Resident Providers to CC Resident Creating Document: ARJUN BAI, RES ~ Antibiotic Timeout Antibiotic Ordered?: No Subjective The patient has been evaluated at the bedside. The patient states that he is currently releasing gases, did not have a bowel movement yet. Pain well controlled. Objective Vital Signs Date Time Temp Pulse Resp B/P (MAP) Pulse Ox O2 Delivery O2 Flow Rate FiO2 02/06/25 14:17 156 02/06/25 11:21 14 02/06/25 11:00 97.4 145/88 (107) 97 Room Air 02/06/25 10:50 0.0 02/06/25 10:44 21 Physical exam: General: Well alert, well oriented, not confused, not agitated, not in acute distress, well cooperated during the physical. HEENT: Conjunctive are pink, sclerae clear, no icterus, pupil is equal in both sides, reactive to light, no ear discharge, no pharyngeal erythema or an edema, presence of NG tube draining some greenish fluid, presence of central line in the right side of the neck. Neck: Supple, no JVD, no lymphadenopathy and thyromegaly. Chest: Equal air entry on both lungs, no additional sounds no rhonchi no wheezing at the moment. Cardiovascular: S1-S2 regular sinus rhythm and, regular rate, no gallops, no rubs, no murmurs Abdomen: No visible peristalsis, Bowel sounds diminished on auscultation, soft, nontender, no guarding, no rigidity, clean one dressing noted. Extremities: No obvious deformities, no pitting edema bilaterally, capillary refill intact, peripheral pulsations are intact on both sides Central Nervous System: No focal neurological deficits, no motor or sensory weakness in all 4 extremities, could move all 4 extremities, 2+ deep tendon reflexes, negative Babinski. Musculoskeletal: No joint swelling, deformities, inflammations, and no scoliosis and back tenderness Skin: Warm and dry. Result Diagram: 02/06/25 0340 02/06/25 0340 Coagulation Studies Laboratory Tests Test 02/06/25 03:40 Prothrombin Time 11.4 SECONDS (9.0-12.0) INR International Normalized Ratio 1.1 INR Coagulation Comments Assessment Assessment 64-year-old male patient came to the hospital with chief complaint of epigastric pain and coffee-ground emesis. Stool occult was positive. The patient was admitted for acute upper GI bleeding likely secondary to alcohol-induced gastritis. Plan Plan Small-bowel obstruction s/p laparotomy and lysis of adhesions on 02/02/2025: Possible superior mesenteric ischemia: 02/01/2025-abdomen was distended, NG tube placed, drained 1.2 L of bilious fluid. Abdominal x-ray showed severely distended small bowel loops up to 7.[address] abdomen with oral and IV contrast showed SBO with transition point in the right mid to lower abdomen. Mesenteric ultrasound showed nonvisualization of the mesenteric artery secondary to shadowing. Dr. Jackson at performed laparotomy and lysis of additions on 02/02/2025 Currently on NG tube, drainage tube. Currently on TPN, oral feeding will be restarted in 24-48 hours. dextrose/LR@ 125 mL/hour discontinued as he is on TPN. 02/06/2025: Surgeon, Dr. Salinas is following, CT obtained today worrisome for ischemic bowel, patient needs SMA stent-scheduled for as per Dr. Salinas. Continue Zosyn IV t.i.d.. Day 6. Positive SIRS criteria Sirs criteria: (HR>90, WBC>12) WBC trending down Blood cultures show no growth after two days Started Zosyn day 6 Acute upper GI bleed Alcohol-induced gastritis Stool occult positive Hemoglobin stable On pantoprazole 40 mg daily 02/06/2025: Hemoglobin and hematocrit stable. Keep monitoring hemogram. Transfuse if hemoglobin levels dropped below seven. Pantoprazole 40 mg IV b.i.d. Acute exacerbation of COPD Maintain oxygen saturation between 90-94%. Completed five day course of ceftriaxone and azithromycin. Discontinued DuoNeb q.2h p.r.n. DuoNeb q.4h PRN. Incentive spirometry. Methylprednisolone 20 mg b.i.d. 02/06/2025: Methylprednisolone reduce to 20 mg daily. Continue incentive spirometry. Continue DuoNebs. Supraventricular tachycardia - resolved Patient had a episode of SVT, one dose of IV metoprolol 5 mg given. Currently in sinus tach with heart rate ranging from 110-120, Currently on metoprolol succinate 50 mg daily 02/04/2025-patient continues to be in SVT, IV metoprolol q.6 p.r.n. for heart rate> 120 as the patient is on NPO. 02/05/2025: Current heart rate around 102. Metoprolol tartrate 50 mg b.i.d. started due to inability to crash metoprolol succinate. Acute toxic/metabolic encephalopathy -improved Alcohol use disorder Alcohol withdrawal symptoms initially. On alcohol withdrawal protocol. Acute kidney injury, likely prerenal - resolved Current creatinine levels within reference range. GFR>90 Hyponatremia: Metabolic alkalosis, improved Serum osmolality 272, urine sodium 106 Currently on Lasix 20 IV daily. Follow-up BNP. Elevated transaminases-improved Likely liver injury 2/2 alcohol consumption Trending down. Hypertension Metoprolol tartrate 50 mg b.i.d. Clonidine 0.4 mg q.4h as needed. Hydralazine 10 mg q.6h PRN for high blood pressure. CAD status post CABG Aspirin withheld due to GI bleeding, we will resume after discharge Atorvastatin and metoprolol-on hold because of NPO status Chronic diastolic congestive heart failure with preserved ejection fraction, not in acute exacerbation EF 60-65% on echo done in 2023, new echo LVEF is 55%. 02/06/2025, Follow-up proBNP. Lasix 20 mg IV daily. Code status: Full code DVT prophylaxis: SCDs Pain control: Acetaminophen, Dilaudid GI prophylaxis: Protonix 40 mg IV b.i.d. Diet: NPO, TPN Lines/tubes: Peripheral IV line, NG tube. Status: Guarded PT: Recommends post-acute care. Disposition: Continue medical management. Dr. Salinas is following the patient. SMA stent placement on . Discharge plan will be post-acute care when medically stable. Arjun Hartman Internal Medicine Resident [facility] Date of Service: Feb 06, 2025 Billing Provider: KHOA BHATT MD Common Visit Codes: [id number] INP/OBS CARE(HIGH) ARJUN BAI, RES Feb 06, 2025 15:44 KHOA BHATT MD Feb 06, 2025 22:08
--- NOTE | 2025-02-06 21:47 | ELECTROCARDIOGRAPH REPORT ---
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 ABIGAIL Cortes Measurements Intervals [place] Rate: 97 P: 2 VT: 112 QRS: 56 QRSD: 87 T: 68 QT: 354 QTc: 450 Interpretive Statements Sinus rhythm Borderline short VT interval Low voltage, extremity leads Electronically Signed On 02-07-2025 19:16:[address] ABIGAIL Cortes Please click the below link to view image of tracing.
[2025-02-07] VITALS (20 sets, daily range): BP systolic 95–142; BP diastolic 63–80; PULSE 75–118; RESP 11–21; TEMP 97–98.4; O2SAT 93–97
[2025-02-07 07:58] LABS: MEAN PLATELET VOLUME 8.1 FL (7.4-10.4); RED CELL DISTRIBUTION WIDTH 13.6 % (11.5-14.5)
[2025-02-07 08:06] LABS: CREATININE 0.52 MG/DL (0.60-1.10); PRO BRAIN NATRIURETIC PEPTIDE 597 PG/ML (0-125); TOTAL CARBON DIOXIDE 22.0 MMOL/L (24-32); eCRCL 148 ML/MIN; eGFR > 90 ML/MIN
[2025-02-07 08:21] LABS: BANDS% (MANUAL) 3.0 % (0-10); LYMPHOCYTES % (MANUAL) 5.0 % (21-51); METAMYLEOCYTES% (MANUAL) 1.0 % (0-0); MONOCYTES % (MANUAL) 2.0 % (2-12); NEUTROPHILS % (MANUAL) 89.0 % (42-75); PLATELET ESTIMATE NORMAL
[2025-02-07] MEDS: potassium Cl 20 mEq SR tablet PO PRN (08:33)
--- NOTE | 2025-02-07 15:23 | PROGRESS NOTE- Residence ---
Progress Note - Resident Providers to CC Resident Creating Document: ARJUN BAI, [place] ~ Antibiotic Timeout Antibiotic Ordered?: Yes Subjective The patient has been evaluated at the bedside. The patient is currently releasing gases, reported one bowel movement. Objective Vital Signs Date Time Temp Pulse Resp B/P (MAP) Pulse Ox O2 Delivery O2 Flow Rate FiO2 02/07/25 12:08 118 18 Room Air 0.0 02/07/25 11:59 93 21 02/07/25 11:00 97.4 120/69 (86) Physical exam: General: Well alert, well oriented, not confused, not agitated, not in acute distress, well cooperated during the physical. HEENT: Conjunctive are pink, sclerae clear, no icterus, pupil is equal in both sides, reactive to light, no ear discharge, no pharyngeal erythema or an edema, presence of NG tube draining some greenish fluid, presence of central line in the right side of the neck. Neck: Supple, no JVD, no lymphadenopathy and thyromegaly. Chest: Equal air entry on both lungs, no additional sounds no rhonchi no wheezing at the moment. Cardiovascular: S1-S2 regular sinus rhythm and, regular rate, no gallops, no rubs, no murmurs Abdomen: No visible peristalsis, Bowel sounds diminished on auscultation, soft, nontender, no guarding, no rigidity, clean one dressing noted. Extremities: No obvious deformities, no pitting edema bilaterally, capillary refill intact, peripheral pulsations are intact on both sides Central Nervous System: No focal neurological deficits, no motor or sensory weakness in all 4 extremities, could move all 4 extremities, 2+ deep tendon reflexes, negative Babinski. Musculoskeletal: No joint swelling, deformities, inflammations, and no scoliosis and back tenderness Skin: Warm and dry. Result Diagram: 02/07/25 0730 02/07/25 0952 Coagulation Studies Laboratory Tests Test 02/06/25 03:40 Prothrombin Time 11.4 SECONDS (9.0-12.0) INR International Normalized Ratio 1.1 INR Coagulation Comments Assessment Assessment 64-year-old male patient came to the hospital with chief complaint of epigastric pain and coffee-ground emesis. Stool occult was positive. The patient was admitted for acute upper GI bleeding likely secondary to alcohol-induced gastritis. Plan Plan Small-bowel obstruction s/p laparotomy and lysis of adhesions on 02/02/2025: Superior mesenteric ischemia: 02/01/2025-abdomen was distended, NG tube placed, drained 1.2 L of bilious fluid. Abdominal x-ray showed severely distended small bowel loops up to 7.[address] abdomen with oral and IV contrast showed SBO with transition point in the right mid to lower abdomen. Mesenteric ultrasound showed nonvisualization of the mesenteric artery secondary to shadowing. Dr. Jackson at performed laparotomy and lysis of additions on 02/02/2025 Currently on NG tube, drainage tube. Currently on TPN, oral feeding will be restarted in 24-48 hours. dextrose/LR at 125 mL/hour discontinued as he is on TPN. 02/06/2025: Surgeon, Dr. Salinas is following, CT obtained today worrisome for ischemic bowel, patient needs SMA stent-scheduled for as per Dr. Salinas. Continue Zosyn IV t.i.d. Day 6. 02/07/2025: The patient will undergo SMA stent placement tomorrow. Continue Zosyn IV t.i.d. day 7. Positive SIRS criteria Sirs criteria: (HR>90, WBC>12) WBC trending down Blood cultures show no growth after two days Started Zosyn day 6 Acute upper GI bleed Alcohol-induced gastritis Stool occult positive Hemoglobin and hematocrit improving. Keep monitoring hemogram. Transfuse if hemoglobin levels dropped below seven. Pantoprazole 40 mg IV b.i.d. Acute exacerbation of COPD Maintain oxygen saturation between 90-94%. Completed five day course of ceftriaxone and azithromycin. Discontinued DuoNeb q.2h p.r.n. DuoNeb q.4h PRN. Incentive spirometry. Methylprednisolone 20 mg b.i.d. 02/06/2025: Methylprednisolone reduce to 20 mg daily. Continue incentive spirometry. Continue DuoNebs. 02/07/2025: Discontinue methylprednisolone. Continue DuoNebs and incentive spirometry. Supraventricular tachycardia - resolved Patient had a episode of SVT, one dose of IV metoprolol 5 mg given. Currently in sinus tach with heart rate ranging from 110-120, Currently on metoprolol succinate 50 mg daily 02/04/2025-patient continues to be in SVT, IV metoprolol q.6 p.r.n. for heart rate> 120 as the patient is on NPO. 02/05/2025: Current heart rate around 102. Metoprolol tartrate 50 mg b.i.d. started due to inability to crash metoprolol succinate. 02/07/2025: Continue metoprolol tartrate 50 mg b.i.d.. Heart rate fair controlled. Acute toxic/metabolic encephalopathy -improved Alcohol use disorder Alcohol withdrawal symptoms initially. On alcohol withdrawal protocol. Acute kidney injury, likely prerenal - resolved Current creatinine levels within reference range. GFR>90 Hyponatremia: Metabolic alkalosis, improved Serum osmolality 272, urine sodium 106 Lasix discontinued. Elevated transaminases-improved Likely liver injury 2/2 alcohol consumption Trending down. Hypertension Metoprolol tartrate 50 mg b.i.d. Clonidine 0.4 mg q.4h as needed. Hydralazine 10 mg q.6h PRN for high blood pressure. CAD status post CABG Aspirin withheld due to GI bleeding, we will resume after discharge Atorvastatin and metoprolol-on hold because of NPO status Chronic diastolic congestive heart failure with preserved ejection fraction, not in acute exacerbation EF 60-65% on echo done in 2023, new echo LVEF is 55%. 02/06/2025: Lasix discontinued. ProBNP improved. Code status: Full code DVT prophylaxis: SCDs Pain control: Acetaminophen, Dilaudid GI prophylaxis: Protonix 40 mg IV b.i.d. Diet: NPO, TPN Lines/tubes: Peripheral IV line, NG tube. Status: Guarded PT: Recommends post-acute care. Disposition: Continue medical management. Dr. Salinas is following the patient. SMA stent placement on tomorrow. Discharge plan will be LTAC. Anticipated discharge tomorrow. Arjun Hartman Internal Medicine Resident [facility] Date of Service: Feb 07, 2025 Billing Provider: KHOA BHATT MD Common Visit Codes: [id number] INP/OBS CARE(HIGH) ARJUN BAI, RES Feb 07, 2025 15:23 KHOA BHATT MD Feb 07, 2025 20:45
--- NOTE | 2025-02-07 16:12 | PROGRESS NOTE ---
Progress Note ID Providers to CC ~ Progress Note Progress Note: multiple bm-advance diet DARLIN SALAZAR MD Feb 07, 2025 16:12
[2025-02-07] MEDS: potassium Cl 40MEQ/270ML bag 270 ML IV PRN (16:31)
[2025-02-08] VITALS (22 sets, daily range): BP systolic 96–125; BP diastolic 61–89; PULSE 82–125; RESP 12–24; TEMP 97.3–98; O2SAT 92–99
[2025-02-08 06:28] LABS: CREATININE 0.46 MG/DL (0.60-1.10); TOTAL CARBON DIOXIDE 19.9 MMOL/L (24-32); eCRCL 168 ML/MIN; eGFR > 90 ML/MIN
[2025-02-08 06:34] LABS: MEAN PLATELET VOLUME 8.0 FL (7.4-10.4); RED CELL DISTRIBUTION WIDTH 13.4 % (11.5-14.5)
[2025-02-08 06:42] LABS: PHOSPHORUS 2.9 MG/DL (2.3-4.5)
--- NOTE | 2025-02-08 14:48 | RADIOLOGY REPORT ---
CHEST RADIOGRAPH Indication: Confirm CVL placement Technique: Single frontal view of the chest was obtained Comparison: DI CHEST,SINGLE VIEW on DOS: 02/02/25, DI CHEST,SINGLE VIEW on DOS: 02/02/25, DI CHEST,SING LE VIEW on DOS: 02/01/25, DI CHEST,SINGLE VIEW on DOS: 01/28/25, DI CHEST,SINGLE VIEW on DOS: 01/27/25 FINDINGS: Lines and Tubes: Right central venous catheter tip in the SVC. Lungs: No focal consolidation. Pleura: No effusion. No pneumothorax. Cardiomediastinal contours: Unremarkable Bones: No acute osseous abnormality. IMPRESSION: No acute cardiopulmonary disease.
[2025-02-08] MEDS ORDERED: heparin 1,000 UNITS/NS 500ml 500 ML ONE (15:27)
[2025-02-08] MEDS ORDERED: fentaNYL/PF 50MCG/1 ML 2ML syringe ONE (15:27)
[2025-02-08] MEDS ORDERED: iohexol 300mg/ml 100ml inj. ONE (15:27)
[2025-02-08] MEDS ORDERED: midazolam 1 mg/ML 2ml injection ONE (15:27)
--- NOTE | 2025-02-08 16:23 | PROGRESS NOTE ---
Progress Note - Angio Providers to CC ~ Angio Progress Note: Risks benefits alt of Left or possible Right PAINTER DECORATOR access for abd aortogram and mesenteric angio/poss stent angioplasty etc. We may not be able to safely access arterial system due to severity of calcific disease d/w Dr Salinas. Informed consent disclosed for hopeful mesenteric angio /stent today for h/o bouts of suspected intestinal ischemia/ abd pain. Mal 2 ASA 3. HEYDI DIOP MD Feb 08, 2025 16:22
--- NOTE | 2025-02-08 17:35 | PROGRESS NOTE ---
Progress Note - Angio Providers to CC ~ Angio Progress Note: S/P abd aortogram lateral and AP. There is a mild SMA stenosis and patent Celiac axis. The OSCAR is small in size but appears patent as well. No intervention indicated given associated risks. Mynx closure LCFA (significant posterior and medial wall calcium) no complications. EBL less than 5cc. Dictated. HEYDI DIOP MD Feb 08, 2025 17:35
--- NOTE | 2025-02-08 17:48 | PROGRESS NOTE ---
Progress Note ID Providers to CC ~ Progress Note Progress Note: no complaints/vss/angio neg afor mesenteric stenosis a/p 1. s/p alayna-doing well/advance diet-home soon DARLIN SALAZAR MD Feb 08, 2025 17:48
--- NOTE | 2025-02-08 17:57 | PROGRESS NOTE- Residence ---
Progress Note - Resident Providers to CC Resident Creating Document: ARJNU BAI, RES ~ Antibiotic Timeout Antibiotic Ordered?: Yes Subjective The patient has been evaluated at the bedside. The patient is currently pain- free, having multiple bowel movements. Objective Vital Signs Date Time Temp Pulse Resp B/P (MAP) Pulse Ox O2 Delivery O2 Flow Rate FiO2 02/08/25 11:46 97 18 Room Air 0.0 02/08/25 11:45 95 21 02/08/25 10:16 97.7 123/89 (100) Physical exam: General: Well alert, well oriented, not confused, not agitated, not in acute distress, well cooperated during the physical. HEENT: Conjunctive are pink, sclerae clear, no icterus, pupil is equal in both sides, reactive to light, no ear discharge, no pharyngeal erythema or an edema, presence of NG tube draining some greenish fluid, presence of central line in the right side of the neck. Neck: Supple, no JVD, no lymphadenopathy and thyromegaly. Chest: Equal air entry on both lungs, no additional sounds no rhonchi no wheezing at the moment. Cardiovascular: S1-S2 regular sinus rhythm and, regular rate, no gallops, no rubs, no murmurs Abdomen: No visible peristalsis, Bowel sounds diminished on auscultation, soft, nontender, no guarding, no rigidity, clean one dressing noted. Extremities: No obvious deformities, no pitting edema bilaterally, capillary refill intact, peripheral pulsations are intact on both sides Central Nervous System: No focal neurological deficits, no motor or sensory weakness in all 4 extremities, could move all 4 extremities, 2+ deep tendon reflexes, negative Babinski. Musculoskeletal: No joint swelling, deformities, inflammations, and no scoliosis and back tenderness Skin: Warm and dry. Result Diagram: 02/08/25 0548 02/08/25 0548 Coagulation Studies Laboratory Tests Test 02/06/25 03:40 Prothrombin Time 11.4 SECONDS (9.0-12.0) INR International Normalized Ratio 1.1 INR Coagulation Comments Assessment Assessment 64-year-old male patient came to the hospital with chief complaint of epigastric pain and coffee-ground emesis. Stool occult was positive. The patient was admitted for acute upper GI bleeding likely secondary to alcohol-induced gastritis. Plan Plan Small-bowel obstruction s/p laparotomy and lysis of adhesions on 02/02/2025: Superior mesenteric ischemia: 02/01/2025-abdomen was distended, NG tube placed, drained 1.2 L of bilious fluid. Abdominal x-ray showed severely distended small bowel loops up to 7.[address] abdomen with oral and IV contrast showed SBO with transition point in the right mid to lower abdomen. Mesenteric ultrasound showed nonvisualization of the mesenteric artery secondary to shadowing. Dr. Jackson at performed laparotomy and lysis of additions on 02/02/2025 Currently on NG tube, drainage tube. Currently on TPN, oral feeding will be restarted in 24-48 hours. dextrose/LR at 125 mL/hour discontinued as he is on TPN. 02/06/2025: Surgeon, Dr. Salinas is following, CT obtained today worrisome for ischemic bowel, patient needs SMA stent-scheduled for as per Dr. Salinas. Continue Zosyn IV t.i.d. Day 6. 02/07/2025: The patient will undergo SMA stent placement tomorrow. Continue Zosyn IV t.i.d. day 7. 02/08/2025: The patient underwent aortogram today by Dr. Perry, interventional radiologist. Mentioned that mild superior mesenteric artery stenosis and patent celiac axis was found. No intervention indicated given associated risks. Positive SIRS criteria Sirs criteria: (HR>90, WBC>12) WBC trending down Blood cultures show no growth after two days Started Zosyn day 7 Acute upper GI bleed Alcohol-induced gastritis Stool occult positive Hemoglobin and hematocrit improving. Keep monitoring hemogram. Transfuse if hemoglobin levels dropped below seven. Pantoprazole 40 mg IV b.i.d. Acute exacerbation of COPD Maintain oxygen saturation between 90-94%. Completed five day course of ceftriaxone and azithromycin. Discontinued DuoNeb q.2h p.r.n. DuoNeb q.4h PRN. Incentive spirometry. Supraventricular tachycardia - resolved Patient had a episode of SVT, one dose of IV metoprolol 5 mg given. Continue metoprolol tartrate 50 mg b.i.d.. Heart rate fair controlled. Acute toxic/metabolic encephalopathy -improved Alcohol use disorder Alcohol withdrawal symptoms initially. On alcohol withdrawal protocol. Acute kidney injury, likely prerenal - resolved Current creatinine levels within reference range. GFR>90 Hyponatremia-improving: Metabolic alkalosis, improved Serum osmolality 272, urine sodium 106 Lasix discontinued. Elevated transaminases-improved Likely liver injury 2/2 alcohol consumption Trending down. Hypertension Metoprolol tartrate 50 mg b.i.d. Clonidine 0.4 mg q.4h as needed. Hydralazine 10 mg q.6h PRN for high blood pressure. CAD status post CABG Aspirin withheld due to GI bleeding, we will resume after discharge Atorvastatin and metoprolol-on hold because of NPO status Chronic diastolic congestive heart failure with preserved ejection fraction, not in acute exacerbation EF 60-65% on echo done in 2023, new echo LVEF is 55%. Code status: Full code DVT prophylaxis: SCDs Pain control: Acetaminophen, Dilaudid GI prophylaxis: Protonix 40 mg IV b.i.d. Diet: TPN Lines/tubes: Peripheral IV line, NG tube, central line. Status: Guarded PT: Recommends post-acute care. Disposition: Anticipated discharge to LTAC tomorrow. Arjun Hartman Internal Medicine Resident [facility] Date of Service: Feb 08, 2025 Billing Provider: KHOA BHATT MD Common Visit Codes: [id number] INP/OBS CARE(HIGH) ARJUN BAI, RES Feb 08, 2025 17:57 KHOA BHATT MD Feb 08, 2025 20:30
--- NOTE | 2025-02-08 18:39 | RADIOLOGY REPORT ---
Abdominal aortogram study: HISTORY: Evaluate for possible superior mesenteric artery stenosis. There was suggestion of possible bowel ischemia and abdominal pain in the past. Difficult to evaluate by CT imaging due to calcification. Poor evaluation via ultrasound imaging as well. After explanation of the above procedure and informed consent, patient was prepped and draped in usual sterile fashion. A surgical timeout was performed. Initially utilizing ultrasound guidance and a micropuncture kit entry was gained into the left common femoral artery.. Fairly prominent calcific changes are seen at the artery limiting access zone. A 5 [place] sheath was placed and through the sheath a Omni flush catheter was advanced to the proximal abdominal aorta. An anterior and lateral abdominal aortogram study were performed. FINDINGS: The celiac axis appears widely patent. There is symmetric early filling of the superior mesenteric artery territory although there is a mild stenosis just beyond the vessel origin with mild poststenotic dilatation changes and overlying calcific changes. The origin of the inferior mesenteric artery is not well defined although this vessel is filling on AP and lateral projections. The distal aorta demonstrates mild wall irregularity extending to the bilateral common iliac arteries although no definite flow significant stenosis is demonstrated. The bilateral internal and external iliac arteries are patent. A left anterior oblique angiogram of the access site at left common femoral artery was performed demonstrating fairly prominent calcific changes throughout in a patent profunda femoral artery but adequate access vessel size for a mynx closure device. A 5 [place]ian mynx closure would device was successfully deployed. A total of 2.4 minutes fluoroscopy time was used with dose of 166 mGy. Total sedation time was 30 minutes supplied by conscious sedation certified nurse with all vital signs recorded on electronic medical record. A total of 0.5 mg Versed and 50 mcg fentanyl given intravenously. A total of 54 cc of Omnipaque 300 used as contrast. Total of 8 cc 1% lidocaine solution used for local anesthesia. Sedation start time was 1626 hours. IMPRESSION: Abdominal aortogram in AP and lateral projections demonstrates only mild narrowing of the proximal superior mesenteric artery. The celiac axis appears widely patent. The inferior mesenteric artery origin is poorly defined although this vessel is patent throughout the remainder of his course. Intervention not indicated.
[2025-02-09] VITALS (11 sets, daily range): BP systolic 97–113; BP diastolic 67–82; PULSE 91–111; RESP 16–24; TEMP 97.7–98.5; O2SAT 93–97
[2025-02-09 06:37] LABS: MEAN PLATELET VOLUME 7.8 FL (7.4-10.4); RED CELL DISTRIBUTION WIDTH 14.0 % (11.5-14.5)
[2025-02-09 06:52] LABS: CREATININE 0.58 MG/DL (0.60-1.10); TOTAL CARBON DIOXIDE 23.3 MMOL/L (24-32); eCRCL 133 ML/MIN; eGFR > 90 ML/MIN
[2025-02-09] MEDS ORDERED: PANT40TA54 PO (11:50)
[2025-02-09] MEDS ORDERED: METO50TA16 PO (11:50)
[2025-02-09] MEDS ORDERED: ALBU8HFA PO (11:50)
--- NOTE | 2025-02-09 16:25 | DISCHARGE SUMMARY-Residence ---
Discharge Summary Providers to CC Resident Creating Document: LEELEE MAYOLACIE CLAUDINE, RES ~ Discharge Summary Admission Diagnosis: sbo Hospital Course DATE OF ADMISSION: 01/25/2025 DATE OF DISCHARGE: 02/09/2025 Discharge Diagnosis\Comment: Small-bowel obstruction s/p laparotomy and lysis of adhesions on 02/02/2025: Superior mesenteric ischemia Positive SIRS criteria Sirs criteria: (HR>90, WBC>12) Acute upper GI bleed Alcohol-induced gastritis Acute exacerbation of COPD Supraventricular tachycardia - resolved Acute toxic/metabolic encephalopathy -improved Alcohol use disorder Acute kidney injury, likely prerenal - resolved Hyponatremia-improving Metabolic alkalosis, improved Elevated transaminases-improved Hypertension CAD status post CABG Chronic diastolic congestive heart failure with preserved ejection fraction, not in acute exacerbation Operations\Procedures: Abdominal aortogram. Laparotomy and lysis of additions on 02/02/2025. Consultants: General surgeon Dr. Chang. IR Dr. Perry Complications: None Condition on DC: Stable New Medications: albuterol inhaler (Pro-Air Inhaler) 8.5 Gm Inhaler 1-2 PUFFS PO Q4H PRN for shortness of breath for 30 Days, #1 INH Metoprolol Tartrate (Metoprolol Tartrate) 50 Mg Tablet 1 TAB PO Q12H for 30 Days, #60 TAB Pantoprazole Sodium (Pantoprazole Sodium) 40 Mg Tablet.dr 40 MG PO DAILY for 30 Days, #30 TAB.SR Continued Medications: Aspirin (Aspirin) 81 Mg Tab.chew 1 TAB PO DAILY Atorvastatin Calcium (Atorvastatin Calcium) 40 Mg Tablet 1 TAB PO DAILY Losartan Potassium (Losartan Potassium) 25 Mg Tablet 1 TAB PO DAILY Discontinued Medications: Metoprolol Succinate (Metoprolol Succinate) 25 Mg Tab.sr.24h 1 TAB PO BID Discharge Summary: HPI: 64-year-old male with a history of CAD s/p CABG about one year ago, PAD, alcohol abuse, hypertension came to the ER with a chief complaint of epigastric pain and vomitings with blood which started three days ago. The vomitings started three days ago which initially had blood and later was coffee-ground color, had about 10-15 episodes a day. Also has epigastric pain sharp, intermittent, graded 8/10, nonradiating, aggravated with eating or drinking anything. Denied any diarrhea, black color stools. He he takes aspirin, denies any other NSAIDs or any anticoagulants. His last colonoscopy was more than 10 years ago, had about 5 polyps removed at that time. Never had an EGD done. He denied eating insect from the outside. Denied any recent travel history. Denied any similar complaints in his family members. Patient received Ativan in the ER for alcohol withdrawal and appears drowsy He has chronic history of alcohol use, started in ED age of 13. Drinks about 20-25 beers a day, last drink was this morning. He briefly quit drinking alcohol after the CABG but restarted again. Denies any history of withdrawal seizures. 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 Salinas for PAD. Hospital course: 64-year-old male patient came to the hospital with chief complaint of epigastric pain and vomiting. The patient was diagnosed with the acute gastritis likely alcohol induced. The patient was also evidenced with the acute exacerbation of COPD. The patient was started on treatment with antibiotics, steroids and DuoNebs. Upon the following days the patient was evidenced with distended abdomen, reason for which CT scan of the abdomen with IV and oral control was obtained, small bowel obstruction was evidenced reason for which Dr. Chang was consulted who performed laparotomy and lysis of adhesions on 02/02/2025. Upon the following days the patient was placed with the NG tube, Dr. Salinas follow the patient. During the next two days of hospitalization the patient sta rted releasing gases and having bowel movements reason for which NG tube was removed. Sirs criteria was evidenced and Zosyn was started. The patient was managed with TPN for nutrition while the patient was with NG tube. Due to the suspicion of mesenteric ischemia IR, Dr. Perry was consulted who performed abdominal aortogram which showed mesenteric artery stenosis but no need for i ntervention was indicated at this time. The patient remained hemodynamically stable, physical therapy cleared the patient for home. The patient will be discharged. Discharge course: Patient remained hemodynamically stable. The patient will be discharged with the following instructions: Call 911 or come to the Emergency department if severe abdominal pain, fever sensation, chest pain, shortness of breath is evidenced. Continue your home medications. We change the metoprolol succinate to metoprolol tartate 50 mg every 12 hours. Contuinue losartan 1 tablet of 25 mg daily. Follow up with your primary care physician within 2 week. Physical exam: General: Well alert, well oriented, not confused, not agitated, not in acute distress, well cooperated during the physical. HEENT: Conjunctive are pink, sclerae clear, no icterus, pupil is equal in both sides, reactive to light, no ear discharge, no pharyngeal erythema or an edema, presence of NG tube draining some greenish fluid, presence of central line in the right side of the neck. Neck: Supple, no JVD, no lymphadenopathy and thyromegaly. Chest: Equal air entry on both lungs, no additional sounds no rhonchi no wheezing at the moment. Cardiovascular: S1-S2 regular sinus rhythm and, regular rate, no gallops, no rubs, no murmurs Abdomen: No visible peristalsis, Bowel sounds diminished on auscultation, soft, nontender, no guarding, no rigidity, clean one dressing noted. Extremities: No obvious deformities, no pitting edema bilaterally, capillary refill intact, peripheral pulsations are intact on both sides Central Nervous System: No focal neurological deficits, no motor or sensory weakness in all 4 extremities, could move all 4 extremities, 2+ deep tendon reflexes, negative Babinski. Musculoskeletal: No joint swelling, deformities, inflammations, and no scoliosis and back tenderness Skin: Warm and dry. Vital Signs Date Time Temp Pulse Resp B/P (MAP) Pulse Ox O2 Delivery O2 Flow Rate FiO2 02/09/25 15:00 97.7 103 17 113/68 (83) 97 Room Air 02/09/25 11:31 0.0 02/09/25 11:22 21 Laboratory Tests Test 02/07/25 17:17 02/07/25 21:17 02/08/25 02:17 02/08/25 05:48 Glucometer 146 mg/dl 140 mg/dl 121 mg/dl White Blood Count 15.9 X10'3 Red Blood Count 4.20 X10'6 Hemoglobin 13.5 g/dl Hematocrit 39.8 % Mean Corpuscular Volume 94.9 FL Mean Corpuscular Hemoglobin 32.1 PG Mean Corpuscular Hemoglobin Concent 33.9 g/dL Red Cell Distribution Width 13.4 % Platelet Count 229 X10'3 Mean Platelet Volume 8.0 FL Neutrophils (%) (Auto) 81.5 % Lymphocytes (%) (Auto) 10.8 % Monocytes (%) (Auto) 5.9 % Eosinophils (%) (Auto) 1.5 % Basophils (%) (Auto) 0.3 % Neutrophils # (Auto) 12.9 X10'3 Lymphocytes # (Auto) 1.7 X10'3 Monocytes # (Auto) 0.9 X10'3 Eosinophils # (Auto) 0.2 X10'3 Basophils # (Auto) 0.0 X10'3 CBC Comment Sodium Level 131 MMOL/L Potassium Level 4.1 MMOL/L Chloride Level 101 MMOL/L Carbon Dioxide Level 19.9 MMOL/L Anion Gap 10 Blood Urea Nitrogen 12 MG/DL Creatinine 0.46 MG/DL Estimated GFR/1.73 m2 > 90 ML/MIN BUN/Creatinine Ratio 26.1 Glucose Level 86 MG/DL Calcium Level 8.2 MG/DL Phosphorus Level 2.9 MG/DL Magnesium Level 2.0 MG/DL Total Bilirubin 1.0 MG/DL Aspartate Amino Transf (AST/SGOT) 54 U/L Alanine Aminotransferase (ALT/SGPT) 72 U/L Alkaline Phosphatase 174 IU/L Total Protein 6.1 G/DL Albumin 2.2 G/DL Globulin 3.9 G/DL Albumin/Globulin Ratio 0.6 Prealbumin 17.2 MG/DL Triglycerides Level 96 MG/DL Chemistry Comments Test 02/08/25 07:44 02/08/25 14:07 02/08/25 22:42 02/09/25 05:28 Glucometer 157 mg/dl 155 mg/dl 132 mg/dl 138 mg/dl Test 02/09/25 06:14 02/09/25 13:59 White Blood Count 15.1 X10'3 Red Blood Count 3.90 X10'6 Hemoglobin 12.5 g/dl Hematocrit 36.6 % Mean Corpuscular Volume 93.7 FL Mean Corpuscular Hemoglobin 32.2 PG Mean Corpuscular Hemoglobin Concent 34.3 g/dL Red Cell Distribution Width 14.0 % Platelet Count 274 X10'3 Mean Platelet Volume 7.8 FL Neutrophils (%) (Auto) 81.4 % Lymphocytes (%) (Auto) 8.4 % Monocytes (%) (Auto) 8.2 % Eosinophils (%) (Auto) 1.5 % Basophils (%) (Auto) 0.5 % Neutrophils # (Auto) 12.3 X10'3 Lymphocytes # (Auto) 1.3 X10'3 Monocytes # (Auto) 1.2 X10'3 Eosinophils # (Auto) 0.2 X10'3 Basophils # (Auto) 0.1 X10'3 CBC Comment Sodium Level 130 MMOL/L Potassium Level 3.3 MMOL/L Chloride Level 99 MMOL/L Carbon Dioxide Level 23.3 MMOL/L Anion Gap 8 Blood Urea Nitrogen 17 MG/DL Creatinine 0.58 MG/DL Estimated GFR/1.73 m2 > 90 ML/MIN BUN/Creatinine Ratio 29.3 Glucose Level 107 MG/DL Calcium Level 8.2 MG/DL Total Bilirubin 0.8 MG/DL Aspartate Amino Transf (AST/SGOT) 37 U/L Alanine Aminotransferase (ALT/SGPT) 65 U/L Alkaline Phosphatase 184 IU/L Total Protein 6.0 G/DL Albumin 2.2 G/DL Globulin 3.8 G/DL Albumin/Globulin Ratio 0.6 Chemistry Comments Glucometer 118 mg/dl Imaging: CT abdomen/pelvis: Minimal ileus with small bowel wall thickening. The small bowel wall thickening may be secondary to volume status versus enteritis. Less likely to represent ischemic bowel, though recommend correlation given extensive calcific atherosclerosis. Small volume abdominal sites. Chronic focal calcified distal aortic dissection versus calcified ulcerative plaque. Small bilateral pleural effusions. CT abdomen/pelvis with IV and oral contrast: Limited evaluation without contrast. Persistent small bowel obstruction with transition point in the right mid to lower abdomen. There is associated swirling of the mesentery which could be secondary to an internal hernia acting as a lead point. Surgical consultation recommended for further management. Mesenteric edema and small amount of ascites fluid likely reactive secondary to the underlying small bowel obstruction, grossly similar to the previous examination. Small bilateral pleural effusions. Bibasilar airspace consolidation and tree-in-bud nodularity which can be secondary to pneumonia/atypical infection, aspiration, bronchiolitis. Follow-up to resolution. Small pericardial effusion. Cardiophrenic lymphadenopathy. *Problems/Diagnosis: (1) Small bowel obstruction Status: Acute (2) SVT (supraventricular tachycardia) Status: Acute (3) Superior mesenteric artery stenosis Status: Acute (4) Gastritis, alcoholic Status: Acute Total Time Spent on D/C: > 30 Minutes Date of Service: Feb 09, 2025 Billing Provider: KHOA BHATT MD Common Visit Codes: 14004-QLD/OBS DISCH DAY >30min LACIE BAI, RES Feb 09, 2025 16:10 KHOA BHATT MD Feb 10, 2025 09:13
[2025-02-10] MEDS ORDERED: HYDR-3965 PO (09:14)
== END 2025-02-09 16:00 | disposition home or self-care (01) | DRG 224 ==
LOC: ER 08:38 → ED HOLD 13:37 → EDBEDREQ 18:50 → ORTHO 4S 19:30 → PCU 3S 01-29 09:33 → CICU 2S 02-02 17:30 → PCU 3S 02-04 15:18
PROVIDERS: ADMIT Internal Medicine; ATTEND Internal Medicine
PROC: 0D9670Z Drainage of Stomach with Drainage Device, Via Natural or Artificial Opening (ICD-10-PCS; principal; 2025-02-01)
PROC: 0DN80ZZ Release Small Intestine, Open Approach (ICD-10-PCS; 2025-02-02)
PROC: 02HV33Z Insertion of Infusion Device into Superior Vena Cava, Percutaneous Approach (ICD-10-PCS; 2025-02-02)
PROC: B41D1ZZ Fluoroscopy of Aorta and Bilateral Lower Extremity Arteries using Low Osmolar Contrast (ICD-10-PCS; 2025-02-08)
DX: K56.609 Unspecified intestinal obstruction, unspecified as to partial versus complete obstruction (principal); K55.039 Acute (reversible) ischemia of large intestine, extent unspecified; G92.8 Other toxic encephalopathy; K29.21 Alcoholic gastritis with bleeding; E87.3 Alkalosis; E87.1 Hypo-osmolality and hyponatremia; E87.8 Other disorders of electrolyte and fluid balance, not elsewhere classified; I73.9 Peripheral vascular disease, unspecified; E87.6 Hypokalemia; R74.01 Elevation of levels of liver transaminase levels; I11.0 Hypertensive heart disease with heart failure; R74.8 Abnormal levels of other serum enzymes; J44.1 Chronic obstructive pulmonary disease with (acute) exacerbation; I47.19 Other supraventricular tachycardia; I50.32 Chronic diastolic (congestive) heart failure; E86.0 Dehydration; G62.9 Polyneuropathy, unspecified; F10.239 Alcohol dependence with withdrawal, unspecified; E78.5 Hyperlipidemia, unspecified; D72.829 Elevated white blood cell count, unspecified; I25.10 Atherosclerotic heart disease of native coronary artery without angina pectoris; Z86.0100 Personal history of colon polyps, unspecified; Z79.899 Other long term (current) drug therapy; Z95.1 Presence of aortocoronary bypass graft
CPT/HCPCS: 36160; 36415; 36600; 71045; 74018; 74176; 74177; 75625; 76705; 76937; 80053; 80061; 80305; 81003; 82140; 82150; 82272; 82570; 82803; 82948; 83036; 83605; 83690; 83735; 83880; 83930; 83935; 84100; 84132; 84134; 84145; 84300; 84478; 84484; 84540; 85007; 85018; 85025; 85610; 87040; 87070; 87075; 87081; 92508; 92616; 93005; 93306; 93975; 94640; 94664; 94668; 94760; 96361; 96365; 96375; 97110; 97116; 97161; 97162; 97530; 99152; 99153; 99285; A4333; A4349; A4615; A4618; A4620; A5200; A6213; A6258; A6402; A6446; A6449; A6590; A7000; C1751; C1758; C1760; C1769; C1894; G0269; G0378; J0456; J0666; J0696; J1100; J1171; J1630; J1644; J1938; J2003; J2060; J2250; J2405; J2470; J2543; J2560; J2704; J2710; J2919; J3010; J3360; J3411; J3480; J3490; J7030; J7040; J7042; J7060; J7120; J7121; P9045; Q9963; Q9967